=== PATIENT | male | born 1945 | race Caucasian/White ===

== ENCOUNTER 2018-11-18 13:15 | Day surgery (SDC) | payer MEDICARE ==
[2018-11-18 13:54] VITALS: BMI 22.9
[2018-11-18] MEDS ORDERED: diphenhydrAMINE 25 MG CAP PO SCH (14:30)
[2018-11-18] MEDS ORDERED: Acetaminophen 500 MG TAB PO SCH (14:30)
[2018-11-18 23:32] LABS: #Basophils 0.1 thou/uL (0.0-0.2); #Eosinphils 0.3 thou/uL (0.0-0.7); #Lymphocytes 3.2 thou/uL (1.20-3.40); #Monocytes 1.3 thou/uL (0.11-0.59); %Basophils 1.2 % (0.0-1.0); %Eosinophils 3.1 % (0.0-10.0); %Lymphocytes 36.3 % (21.0-51.0); %Monocytes 14.2 % (0.0-10.0); %Neutrophils 45.2 % (42.0-75.0); Hemoglobin 9.8 g/dL (14.0-18.0); Mean Corpuscular HGB CONC 31.6 g/dL (32.0-36.0); Mean Corpuscular Volume 79.1 fL (78.0-98.0); Mean Platelet Volume 7.6 fL (7.4-10.4); Platelet Count 670 thou/uL (130-400); Red Blood Cell (RBC) Count 3.92 mill/uL (4.70-6.10); White Blood Cell (WBC) Count 8.8 thou/uL (4.8-10.8)
[2018-11-19 07:28] VITALS: BP 162/61; TEMP 98.2
== END 2018-11-18 23:35 | disposition home or self-care (01) ==
LOC: ONC/OP 13:15 → T4-A 13:20 → ONC/OP 23:35
PROVIDERS: ATTEND Nurse Practitioner Acute Care
PROC: 30233N1 Transfusion of Nonautologous Red Blood Cells into Peripheral Vein, Percutaneous Approach (ICD-10-PCS; principal; 2018-11-18)
DX: D64.9 Anemia, unspecified (principal); D69.6 Thrombocytopenia, unspecified
CPT/HCPCS: 36415; 36416; 36430; 85025; 86850; 86900; 86901; P9016

== ENCOUNTER 2018-12-23 12:05 | Day surgery (SDC) | payer MEDICARE, OTHER ==
[2018-12-23] MEDS ORDERED: Ferumoxytol (ERSD) 510 MG in Sodium Chloride 0.9% 250 ML 150 ML IV SCH (12:30)
[2018-12-23 13:19] VITALS: BP 168/70; TEMP 97.6
== END 2018-12-23 16:28 | disposition home or self-care (01) ==
LOC: ONC/OP 12:05
PROVIDERS: ATTEND Internal Medicine Hematology & Oncology
DX: D50.8 Other iron deficiency anemias (principal); I12.9 Hypertensive chronic kidney disease with stage 1 through stage 4 chronic kidney disease, or unspecified chronic kidney disease; E11.22 Type 2 diabetes mellitus with diabetic chronic kidney disease; N18.9 Chronic kidney disease, unspecified; D63.1 Anemia in chronic kidney disease; I25.10 Atherosclerotic heart disease of native coronary artery without angina pectoris; E78.00 Pure hypercholesterolemia, unspecified; I25.2 Old myocardial infarction; M19.90 Unspecified osteoarthritis, unspecified site; J44.9 Chronic obstructive pulmonary disease, unspecified; K21.9 Gastro-esophageal reflux disease without esophagitis; F17.200 Nicotine dependence, unspecified, uncomplicated; Z79.02 Long term (current) use of antithrombotics/antiplatelets; Z79.4 Long term (current) use of insulin; Z79.899 Other long term (current) drug therapy
CPT/HCPCS: 36415; 82728; 96365; J7050; Q0139

== ENCOUNTER 2018-12-30 12:36 | Day surgery (SDC) | payer MEDICARE, MEDICAID ==
[2018-12-30] MEDS ORDERED: Ferumoxytol (ERSD) 510 MG in Sodium Chloride 0.9% 250 ML 150 ML IVPB SCH (13:00)
[2018-12-30 13:33] VITALS: BP 155/63; TEMP 97.9
[2018-12-30] MEDS ORDERED: Sodium Chloride 0.9% 20 ML ONE (14:58)
== END 2018-12-30 16:32 | disposition home or self-care (01) ==
LOC: ONC/OP 12:36
PROVIDERS: ATTEND Internal Medicine Hematology & Oncology
DX: D50.8 Other iron deficiency anemias (principal); N18.9 Chronic kidney disease, unspecified; D63.1 Anemia in chronic kidney disease
CPT/HCPCS: 82728; 96365; J7050; Q0139

== ENCOUNTER 2019-01-13 11:43 | Day surgery (SDC) | payer MEDICARE, MEDICAID ==
[~2019-01-13 11:43] MED LIST: Epoetin 40,000 UNITS/ML VIAL SC SCH
[2019-01-13] MEDS ORDERED: Epoetin 40,000 UNITS/ML VIAL ONE (11:52)
== END 2019-01-13 12:20 | disposition home or self-care (01) ==
LOC: ONC/OP 11:43
PROVIDERS: ATTEND Internal Medicine Hematology & Oncology
DX: N18.9 Chronic kidney disease, unspecified (principal); D63.1 Anemia in chronic kidney disease; D50.8 Other iron deficiency anemias
CPT/HCPCS: 96372; J0885

== ENCOUNTER 2019-02-24 11:34 | Day surgery (SDC) | payer MEDICARE, MEDICAID ==
[2019-02-24] MEDS ORDERED: Epoetin 40,000 UNITS/ML VIAL ONE (12:12)
[2019-02-24 12:37] VITALS: BP 160/69; TEMP 98.2
== END 2019-02-24 12:40 | disposition home or self-care (01) ==
LOC: ONC/OP 11:34
PROVIDERS: ATTEND Internal Medicine Hematology & Oncology
DX: N18.9 Chronic kidney disease, unspecified (principal); D63.1 Anemia in chronic kidney disease; D50.8 Other iron deficiency anemias
CPT/HCPCS: 96372; J0885

== ENCOUNTER 2019-03-10 11:21 | Day surgery (SDC) | payer MEDICARE, MEDICAID ==
[2019-03-10] MEDS ORDERED: Epoetin 40,000 UNITS/ML VIAL ONE (11:29)
[2019-03-10 11:32] VITALS: BP 136/63; TEMP 97.9
== END 2019-03-10 11:32 | disposition home or self-care (01) ==
LOC: ONC/OP 11:21
PROVIDERS: ATTEND Internal Medicine Hematology & Oncology
DX: N18.9 Chronic kidney disease, unspecified (principal); D63.1 Anemia in chronic kidney disease; D50.8 Other iron deficiency anemias
CPT/HCPCS: 96372; J0885

== ENCOUNTER 2019-03-24 11:27 | Day surgery (SDC) | payer MEDICARE, MEDICAID ==
[2019-03-24] MEDS ORDERED: Epoetin 40,000 UNITS/ML VIAL ONE (11:44)
[2019-03-24] MEDS ORDERED: EPOETIN ALFA-EPBX (ESRD) 40,000 UNIT/ML VIAL SC SCH (11:45)
[2019-03-24 12:07] VITALS: BP 160/65; TEMP 97.8
== END 2019-03-24 12:08 | disposition home or self-care (01) ==
LOC: ONC/OP 11:27
PROVIDERS: ATTEND Internal Medicine Hematology & Oncology
DX: N18.9 Chronic kidney disease, unspecified (principal); D63.1 Anemia in chronic kidney disease; D50.8 Other iron deficiency anemias
CPT/HCPCS: 96372; J0885

== ENCOUNTER 2019-04-07 11:54 | Day surgery (SDC) | payer MEDICARE, MEDICAID ==
[2019-04-07 12:06] VITALS: BP 131/60; TEMP 97.6
[2019-04-07] MEDS ORDERED: EPOETIN ALFA-EPBX (ESRD) 40,000 UNIT/ML VIAL SC SCH (12:15)
== END 2019-04-07 12:05 | disposition home or self-care (01) ==
LOC: ONC/OP 11:54
PROVIDERS: ATTEND Internal Medicine Hematology & Oncology
DX: D50.8 Other iron deficiency anemias (principal); N18.9 Chronic kidney disease, unspecified; D63.1 Anemia in chronic kidney disease
CPT/HCPCS: 96372

== ENCOUNTER 2019-04-21 12:14 | Day surgery (SDC) | payer MEDICARE, MEDICAID ==
[2019-04-21] MEDS ORDERED: EPOETIN ALFA-EPBX (ESRD) 40,000 UNIT/ML VIAL SC SCH (12:45)
[2019-04-21 13:11] VITALS: BP 136/63; TEMP 97.9
== END 2019-04-21 13:14 | disposition home or self-care (01) ==
LOC: ONC/OP 12:14
PROVIDERS: ATTEND Internal Medicine Hematology & Oncology
DX: N18.9 Chronic kidney disease, unspecified (principal); D63.1 Anemia in chronic kidney disease
CPT/HCPCS: 96372

== ENCOUNTER 2019-05-03 10:55 | Inpatient (IN) | payer MEDICARE, OTHER ==
--- NOTE | 2019-05-03 11:45 | RAD ---
XR Chest 1 View Portable HISTORY: Chest pain COMPARISON: None. FINDINGS: Heart size and mediastinum are within normal limits. The lungs appear clear of infiltrates. Surgical clips are seen within the neck region. IMPRESSION: No active intrathoracic disease.
[2019-05-03 11:53] LABS: #Eosinphils 0.3 thou/uL (0.0-0.7); #Lymphocytes 1.8 thou/uL (1.20-3.40); #Monocytes 1.2 thou/uL (0.11-0.59); #Neutrophils 12.2 thou/uL (1.40-6.50); %Basophils 0.3 % (0.0-1.0); %Eosinophils 2.1 % (0.0-10.0); %Lymphocytes 11.7 % (21.0-51.0); %Monocytes 7.7 % (0.0-10.0); %Neutrophils 78.2 % (42.0-75.0); Hemoglobin 5.8 g/dL (14.0-18.0); Mean Corpuscular HGB CONC 30.3 g/dL (32.0-36.0); Mean Corpuscular Hemoglobin 25.8 pg (27.0-31.0); Mean Corpuscular Volume 85.2 fL (78.0-98.0); Mean Platelet Volume 7.3 fL (7.4-10.4); Platelet Count 697 thou/uL (130-400); RBC Distribution Width 17.7 % (11.5-14.5); Red Blood Cell (RBC) Count 2.24 mill/uL (4.70-6.10); White Blood Cell (WBC) Count 15.5 thou/uL (4.8-10.8)
[2019-05-03 12:14] LABS: ALT (SGPT) 9 U/L (8-55); AST (SGOT) 10 U/L (5-34); Alkaline Phosphatase 271 U/L (40-150); Anion Gap 13 mmol/L (10-20); BUN (Urea Nitrogen) 32 mg/dL (8.4-25.7); Bilirubin, Total Less than 0.2 mg/dL (0.2-1.2); Calc. Creatinine Clearance 0 mL/min (70-130); Calcium 7.9 mg/dL (7.8-10.44); Carbon Dioxide 22 mmol/L (23-31); Chloride 103 mmol/L (98-107); Estimated GFR-MDRD 38; Globulin 2.2 g/dL (2.4-3.5); Glucose 436 mg/dL (83-110); Protein, Total 5.2 g/dL (5.8-8.1); Sodium 133 mmol/L (136-145)
[2019-05-03] MEDS ORDERED: HYDROcodone/Acetaminophen 5/325 mg Tablet PO PRN (14:50)
[2019-05-03] MEDS ORDERED: Loratadine 10 MG TAB PO PRN (14:50)
[2019-05-03] MEDS ORDERED: Calcium Carbonate 500 MG ChewTAB PO PRN (14:50)
[2019-05-03] MEDS ORDERED: Ondansetron PF 4 MG/2 ML Vial IVP PRN (14:50)
[2019-05-03] MEDS ORDERED: Ondansetron ODT 4 MG TAB PO PRN (14:50)
[2019-05-03] MEDS ORDERED: Cepastat Lozenges 1 LOZ PO PRN (14:50)
[2019-05-03] MEDS ORDERED: Sodium Chloride 0.65% Nasal 44 ML BOT EA NARE PRN (14:50)
[2019-05-03] MEDS ORDERED: Zolpidem Tartrate 5 MG TAB PO PRN (14:50)
[2019-05-03] MEDS ORDERED: Senokot S 8.6-50 MG TAB PO PRN (14:50)
[2019-05-03] MEDS ORDERED: Acetaminophen 325 MG TAB PO PRN (14:50)
[2019-05-03] MEDS ORDERED: Bisacodyl 5 MG TAB PO PRN (14:50)
[2019-05-03] MEDS ORDERED: Diabetic Tussin 200 MG/10 ML UDCUP PO PRN (14:50)
[2019-05-03] MEDS ORDERED: Loperamide HCl 2 MG CAP PO PRN (14:50)
[2019-05-03] MEDS ORDERED: Dextrose 50% Abboject 50 ML SYRINGE SLOW IVP PRN (14:50)
[2019-05-03] MEDS ORDERED: HumaLOG 300 UNITS/3 ML VIAL SC PRN (14:50)
[2019-05-03] MEDS ORDERED: Dextrose 5% in Water 1,000 ML IV PRN (14:50)
[2019-05-03] MEDS ORDERED: Artificial Tears 18 DROP/0.9 ML EA EYE PRN (14:50)
[2019-05-03] MEDS ORDERED: Bisacodyl 10 MG SUPP PR PRN (15:00)
--- NOTE | 2019-05-03 15:37 | HP ---
PRIMARY CARE PHYSICIAN: Rudy Beth MD REASON FOR ADMISSION: Severe symptomatic anemia. HISTORY OF PRESENT ILLNESS: A 73-year-old male, who has chronic anemia and he reports that he has history of peptic ulcer disease. He had several colonoscopy as well as upper endoscopy and he was told that he is bleeding from his stomach. This time, he came to emergency room with complaint of chest pain which is substernal, associated with exertion without any radiation. Chest pain subsided with rest and nitroglycerin. He was taking several times nitroglycerin at home for his recurrent chest pain. He also has fatigue, dizziness, shortness of breath on exertion. He also has chronic cough which he attributes from COPD and smoking. With coughing spells, he gets chest pain as well. He denies any pleurisy. He denies any syncope. He denies any lower extremity edema, orthopnea, PND, but he does have dyspnea on exertion. He was feeling lightheaded with exertion as well. The patient denies any currently melena, hematochezia, vomiting, epigastric pain. He denies taking NSAID. He is taking all his home medication at home. He continued to smoke, but for last 2 to 3 days, he quit smoking because smoking was giving him cough and that is why he was hurting in his chest. He denies any fever or chills. He denies any hemoptysis. He denies any abdominal distention or abdominal pain. Today, he came to emergency room and he had a chest x-ray, which was unremarkable. His hemoglobin is 5.8 and WBC count is 15.5. His creatinine is 1.74. Previously, his creatinine was 1.6. REVIEW OF SYSTEMS: CONSTITUTIONAL: Negative for weight loss or gain, ability to conduct usual activities. SKIN: Negative for rash, itching. EYES: Negative for double vision, pain. ENT/MOUTH: Negative for nose bleeding, neck stiffness, pain, tenderness. CARDIOVASCULAR: Negative for palpitations, dyspnea on exertion, orthopnea. RESPIRATORY: Negative for shortness of breath, wheezing, cough, hemoptysis, fever or night sweats. GASTROINTESTINAL: Negative for poor appetite, abdominal pain, heartburn, nausea, vomiting, constipation, or diarrhea. GENITOURINARY: Negative for urgency, frequency, dysuria, nocturia. MUSCULOSKELETAL: Negative for pain, swelling. NEUROLOGIC/PSYCHIATRIC: Negative for anxiety, depression. ALLERGY/IMMUNOLOGIC: Negative for skin rash, bleeding tendency. Please see my HPI for pertinent positives and negatives. All other review of systems reviewed and negative except as mentioned in the HPI. PAST MEDICAL HISTORY: Hypertension, COPD, diabetes type 2, anemia chronic, CKD stage 3, osteoarthritis, tobacco abuse disorder, peptic ulcer disease, gastroesophageal reflux disease, peripheral arterial disease, history of MT, and coronary artery disease. PAST SURGICAL HISTORY: Several EGD and colonoscopy, cardiac catheterization with stent placement, splenectomy, neck surgery. PAST PSYCHIATRIC HISTORY: Reviewed and negative. SOCIAL HISTORY: The patient is smoking about half pack per day. He just quit smoking few days ago. He denies any alcohol abuse. He denies any other illicit drug abuse. He is not and he has significant other. FAMILY HISTORY: No strong family history of premature coronary artery disease, stroke, or cancer. ALLERGIES: NO KNOWN DRUG ALLERGY, BUT THE PATIENT REPORTS THAT HE IS ALLERGIC TO TETANUS TOXOID. CURRENT HOME MEDICATIONS: The patient did not bring his home medication and he is not able to tell me the name of medication, so unable to review at this point. Whenever the patient brings his home medication at that time we will review. EMERGENCY ROOM COURSE: The patient is receiving 1 unit of blood transfusion. He is given DuoNeb therapy IV fluid 1 L given. PHYSICAL EXAMINATION: VITAL SIGNS: Currently, blood pressure 156/57, pulse 80, respiratory rate 18, temperature 98.2, saturation 93% on room air. Weight 71.2 kg. GENERAL: The patient is currently alert, awake, no obvious acute distress. HEENT: Head; normocephalic, atraumatic. Eyes, conjunctivae are pale. No icterus. No nystagmus. Extraocular muscles are intact. ENT; moist mucous membranes. No oral lesion. No pharyngeal erythema. No exudate. NECK: Supple. No JVD. No thyromegaly. No carotid bruit. LUNGS: Bilateral end-expiratory wheezing heard as well as reduced air entry. CARDIAC: S1, S2 regular. Soft systolic murmur noted at the apex. No gallop. No rub. ABDOMEN: Soft. Bowel sounds present. No epigastric tenderness. No peritoneal sign. No guarding. No rigidity. No rebound. BACK: Unremarkable. No CVA tenderness. EXTREMITIES: Upper extremity; passive movement of all joints are normal. Lower extremity, no edema. Good distal pulsation. SKIN: No skin rash. HEMATOLOGIC: No lymphadenopathy. NEUROLOGIC: The patient is alert and oriented x3. Cranial nerves 2 through 12 intact. Motor and sensation within normal limits. No focal neurological deficit. SIGNIFICANT LABORATORY DATA: EKG showing normal sinus rhythm, LVH with repolarization changes. Chest x-ray showing no acute cardiopulmonary process. CBC; WBC 15.5, hemoglobin 5.8, platelets 697. BMP; sodium 133, potassium 5.0, chloride 103, carbon dioxide 22, anion gap 13, BUN 32, creatinine 1.74, glucose 436, calcium 7.9. LFTs; AST 10, ALT 9, alkaline phosphatase 271, albumin 3.0. BNP 245. Troponin I less than 0.010. ASSESSMENT AND PLAN: 1. Severe symptomatic anemia. This patient currently hemoglobin is 5.8, his previous hemoglobin is 9.8. The patient has history of peptic ulcer disease. The patient had several colonoscopy and upper endoscopy. At this point, the patient does not have any ongoing active bleeding by history. We will check stool for guaiac to rule out any occult bleeding. We will consult junior staff accountant for possible evaluation endoscopically. We will send anemia workup with ferritin, iron, TIBC, TSH, B12, folate. We are going to transfuse him 1 unit of blood today and we will repeat H and H later on today. We will also consider giving him another unit of blood tomorrow. 2. Chest pain. The patient's chest pain description is atypical anginal, most likely related with severe symptomatic anemia. Currently, EKG is not showing any ischemic changes and his troponin is negative. We will do three sets of cardiac enzymes. We will obtain echocardiography and we will monitor on telemetry floor. 3. Chronic kidney disease, stage 3. We will monitor renal function. We will repeat BMP tomorrow. I am suspecting chronic kidney disease is related with diabetic nephropathy. We will check urinalysis and we will check urine protein creatinine ratio. 4. Hyponatremia, likely this is pseudohyponatremia from hyperglycemia. 5. Hyperglycemia associated with diabetes type 2. We will provide diabetic diet. We will continue with insulin as per sliding scale protocol. Once we verify his home medication, then we will resume while in hospital. 6. Elevated BNP likely due to hyperdynamic circulation from anemia. We will obtain echocardiography to assess EF and other structural abnormality. 7. Hypoalbuminemia, likely related with nephrotic syndrome and subsequent proteinuria. We will check urinalysis and random protein/creatinine ratio. 8. Chronic obstructive pulmonary disease. We will continue with DuoNeb q.6 hourly, Dulera 2 puffs inhalation b.i.d., Mucinex 600 mg twice daily. 9. Tobacco abuse disorder. Smoking cessation counseling given. Healthy lifestyle measure discussed with the patient. 10. Hypertension. We will continue with the patient's home medication. We will also provide nitroglycerin patch q.8 hourly as the patient is complaining of chest pain. 11. Osteoarthritis. Pain medication as needed basis. 12. History of gastroesophageal reflux disease and peptic ulcer disease. We will continue with Protonix 40 mg IV daily. 13. Leukocytosis with left shift. Unclear whether the patient has infection or not, but the patient has cough productive of sputum. We will check urinalysis and consider giving him levofloxacin 500 mg IV daily. 14. Deep venous thrombosis prophylaxis with SCD. We will avoid Lovenox because of severe anemia. 15. GI prophylaxis. The patient is already on Protonix therapy. CODE STATUS: I have spoken with the patient and the patient's significant other. The patient expressed his own wish to keep himself as a DNR. He does not want to try CPR or intubation in case of cardiopulmonary arrest. DISPOSITION PLAN: Based on clinical course, we are expecting the patient's stay in hospital more than 2 midnights. Plan of care discussed with the patient and family member at bedside in the emergency room. Job ID: [id number]
[2019-05-03 15:38] LABS: Troponin I 0.012 ng/mL (< 0.028)
[2019-05-03 16:14] LABS: Bilirubin Negative (Negative); Blood, Urine Negative (Negative); Clarity CLEAR (Clear); Glucose, Urine (Dipstick) >=1000 mg/dL (Negative); Leukocyte Negative (Negative); Nitrite Negative (Negative); Protein, Urine (Dipstick) 300 mg/dL (Neg-Trace); Specific Gravity, Urine 1.019 (1.002-1.036); Urobilinogen 0.2 mg/dL (0.2-1.0)
[2019-05-03 16:18] LABS: Bacteria/HPF None Seen HPF (None Seen); Hyaline Casts/LPF 0-3 HYALINE CAST LPF (0-3 Hyaline); Pathc Cast-AUWi Flag 0.13 (0-2.49); RBC/HPF 0-3 HPF (0-3); Squamous Epithelial 0-3 HPF (0-3); WBC/HPF 0-3 HPF (0-3)
[2019-05-03 16:34] LABS: Iron 11 ug/dL (65-175); Iron Binding Capacity, Total 359 mcg/dL (261-462)
[2019-05-03 16:42] LABS: Folate (Folic Acid) 8.9 ng/mL (7.0-31.4)
[2019-05-03 16:52] LABS: Ferritin 8.37 ng/mL (22-322); Thyroid Stimulating Hormone 0.9813 uIU/mL (0.35-4.94)
[2019-05-03 17:03] VITALS: BMI 22.8
[2019-05-03 18:16] LABS: Troponin I 0.015 ng/mL (< 0.028)
[2019-05-03] MEDS: HumaLOG 300 UNITS/3 ML VIAL SC PRN (18:33)
[2019-05-03] MEDS: Nitroglycerin 2% Ointment 1 INCH/1 GM Packet TOP SCH (20:58)
[2019-05-03] MEDS: guaiFENesin ER 600 MG TAB PO SCH (20:58)
[2019-05-04] MEDS: Nitroglycerin 2% Ointment 1 INCH/1 GM Packet TOP SCH (05:00)
[2019-05-04 05:51] LABS: #Eosinphils 0.2 thou/uL (0.0-0.7); #Lymphocytes 2.7 thou/uL (1.20-3.40); #Monocytes 1.3 thou/uL (0.11-0.59); #Neutrophils 8.5 thou/uL (1.40-6.50); %Basophils 0.1 % (0.0-1.0); %Eosinophils 1.9 % (0.0-10.0); %Lymphocytes 21.2 % (21.0-51.0); %Monocytes 10.2 % (0.0-10.0); %Neutrophils 66.5 % (42.0-75.0); Hemoglobin 6.6 g/dL (14.0-18.0); Mean Corpuscular HGB CONC 31.8 g/dL (32.0-36.0); Mean Corpuscular Hemoglobin 27.3 pg (27.0-31.0); Mean Platelet Volume 7.2 fL (7.4-10.4); Platelet Count 607 thou/uL (130-400); RBC Distribution Width 17.2 % (11.5-14.5); White Blood Cell (WBC) Count 12.7 thou/uL (4.8-10.8)
[2019-05-04 06:12] LABS: ALT (SGPT) 7 U/L (8-55); AST (SGOT) 9 U/L (5-34); Albumin 2.7 g/dL (3.4-4.8); Alkaline Phosphatase 229 U/L (40-150); Anion Gap 13 mmol/L (10-20); BUN (Urea Nitrogen) 37 mg/dL (8.4-25.7); Bilirubin, Total Less than 0.2 mg/dL (0.2-1.2); Calc. Creatinine Clearance 45 mL/min (70-130); Calcium 8.2 mg/dL (7.8-10.44); Carbon Dioxide 21 mmol/L (23-31); Cardiac Risk 4.1 (Less than 4.5); Chloride 104 mmol/L (98-107); Cholesterol 138 mg/dl (< 200 Desired); Estimated GFR-MDRD 49; Globulin 2.7 g/dL (2.4-3.5); Glucose 162 mg/dL (83-110); HDL Cholesterol 34 mg/dL (>60 Neg Risk); LDL Cholesterol, Calculated 75 mg/dL; Potassium 4.3 mmol/L (3.5-5.1); Protein, Total 5.4 g/dL (5.8-8.1); Sodium 134 mmol/L (136-145); Triglycerides 146 mg/dL (Less than 150)
[2019-05-04] MEDS ORDERED: Iron Sucrose Complex 200 MG in Sodium Chloride 0.9% 250 ML 250 ML IVPB SCH (07:15)
[2019-05-04] MEDS ORDERED: Iron, Sodium Ferric Gluconate 250 MG in Sodium Chloride 0.9% 250 ML 250 ML IVPB SCH (07:30)
[2019-05-04] MEDS ORDERED: [UNRECOGNIZED DRUG - OTHER] SC SCH (09:00)
[2019-05-04] MEDS ORDERED: Non-Formulary Item 1 EACH (Losartan Potassium [Losartan Potassium] 100 MG) PO SCH (09:00)
[2019-05-04] MEDS ORDERED: Furosemide 20 MG TAB PO SCH (09:00)
[2019-05-04] MEDS ORDERED: Non-Formulary Item 1 EACH (Atenolol [Atenolol] 100 MG) PO SCH (09:00)
[2019-05-04] MEDS ORDERED: Non-Formulary Item 1 EACH (Atorvastatin Calcium [Atorvastatin Calcium] 80 MG) PO SCH (09:00)
[2019-05-04] MEDS ORDERED: SOLIQUA SC SCH (09:00)
[2019-05-04] MEDS: guaiFENesin ER 600 MG TAB PO SCH ×2 (09:50→20:51)
[2019-05-04] MEDS: Alogliptin 25 MG TAB PO SCH (09:50)
[2019-05-04] MEDS: Atenolol 50 MG TAB PO SCH (09:50)
[2019-05-04] MEDS: Losartan 25 MG TAB PO SCH (09:50)
[2019-05-04] MEDS: Saccharomyces boulardii 250 MG CAP PO SCH (09:51)
[2019-05-04] MEDS: Pantoprazole 40 MG VIAL IVP SCH (09:52)
--- NOTE | 2019-05-04 11:29 | PDOC.PN ---
- Subjective Encounter Start Date: 05/04/19 Encounter Start Time: 07:30 -: old records requested/rev Patient seen and examined. No new complaints. No overnight events today feels OK, no further chest pain, no gross blood loss - Objective Resuscitation Status - Order Detail: 05/03/19 14:43 Resuscitation Status Routine Resuscitation Status: DNAR: NO Resuscitation Discussed with: discussed with pt MAR Reviewed: Yes Vital Signs & Weight: Vital Signs (12 hours) Temp Pulse Pulse Resp BP BP Pulse Ox 05/04/19 11:07 98.2 F 74 18 174/74 H 05/04/19 09:50 84 05/04/19 08:34 98.4 F 81 18 166/72 H 05/04/19 07:45 98.1 F 84 18 153/65 H 96 05/04/19 07:02 80 16 93 L 05/04/19 04:00 98.2 F 77 17 123/73 94 L 05/04/19 02:00 77 16 92 L 05/03/19 23:33 78 159/68 H 93 L Weight Weight 154 lb 6.4 oz I&O: 05/03/19 05/04/19 05/05/19 06:59 06:59 06:59 Intake Total 50 350 Output Total 100 Balance -50 350 Result Diagrams: 05/04/19 05:30 05/04/19 05:30 Additional Labs: Accuchecks 05/04/19 05/04/19 05/03/19 10:24 05:06 20:18 POC Glucose 220 H 168 H 397 H 05/03/19 18:17 POC Glucose 309 H EKG Reviewed by me: Yes (nsr) Phys Exam - Physical Examination Constitutional: NAD HEENT: PERRLA, moist MMs, sclera anicteric Neck: no JVD, supple Respiratory: no wheezing, no rales, no rhonchi reduced air entry Cardiovascular: RRR, no significant murmur, no rub Gastrointestinal: soft, non-tender, no distention, positive bowel sounds Musculoskeletal: no edema, pulses present Neurological: non-focal, normal sensation, moves all 4 limbs Lymphatic: no nodes Psychiatric: normal affect, A&O x 3 Skin: no rash, normal turgor Dx/Plan (1) Chest pain Code(s): R07.9 - CHEST PAIN, UNSPECIFIED Status: Acute Comment: due to anemia (2) Hyperglycemia due to type 2 diabetes mellitus Code(s): E11.65 - TYPE 2 DIABETES MELLITUS WITH HYPERGLYCEMIA Status: Acute (3) Hyponatremia Code(s): E87.1 - HYPO-OSMOLALITY AND HYPONATREMIA Status: Acute Comment: pseudohyponatremia due to hyperglycemia (4) Symptomatic anemia Code(s): D64.9 - ANEMIA, UNSPECIFIED Status: Acute Comment: s/p total 2 unit PRBC (5) CKD (chronic kidney disease) stage 3, GFR 30-59 ml/min Code(s): N18.3 - CHRONIC KIDNEY DISEASE, STAGE 3 (MODERATE) Status: Chronic (6) COPD (chronic obstructive pulmonary disease) Status: Chronic (7) Iron deficiency anemia due to chronic blood loss Code(s): D50.0 - IRON DEFICIENCY ANEMIA SECONDARY TO BLOOD LOSS (CHRONIC) Status: Chronic (8) Tobacco abuse Code(s): Z72.0 - TOBACCO USE Status: Chronic (9) Elevated brain natriuretic peptide (BNP) level Code(s): R79.89 - OTHER SPECIFIED ABNORMAL FINDINGS OF BLOOD CHEMISTRY Status : Acute - Plan cont current plan of care, continue antibiotics, respiratory therapy * today will transfuse 1 unit PRBC * will give IV iron * GI consulted * continue IV protonix * home medication reconciled * medication reviewed as below * symptomatic treatment. * continue levaquin * Echo pending Review of Systems - Review of Systems Constitutional: negative: fever, chills, sweats, weakness, malaise, other ENT: negative: Ear Pain, Ear Discharge, Nose Pain, Nose Discharge, Nose Congestion, Mouth Pain, Mouth Swelling, Throat Pain, Throat Swelling, Other Respiratory: Cough, Sputum. negative: Dry, Shortness of Breath, Hemoptysis, SOB with Excertion, Pleuritic Pain, Wheezing Cardiovascular: negative: chest pain, palpitations, orthopnea, paroxysmal nocturnal dyspnea, edema, light headedness, other Gastrointestinal: negative: Nausea, Vomiting, Abdominal Pain, Diarrhea, Constipation, Melena, Hematochezia, Other Genitourinary: negative: Dysuria, Frequency, Incontinence, Hematuria, Retention , Other Musculoskeletal: negative: Neck Pain, Shoulder Pain, Arm Pain, Back Pain, Hand Pain, Leg Pain, Foot Pain, Other Skin: negative: Rash, Lesions, Derick, Bruising, Other - Medications/Allergies Allergies/Adverse Reactions: Allergies Allergy/AdvReac Type Severity Reaction Status Date / Time Tetanus Vaccines and Toxoid Allergy Verified 05/03/19 16:42 Medications: Current Medications Acetaminophen (Tylenol) 650 mg PO Q4H PRN PRN Reason: Headache/Fever/Mild Pain (1-3) Hydrocodone Bitart/Acetaminophen ([place] 5/325) 1 tab PO Q4H PRN PRN Reason: Moderate Pain (4-6) Albuterol/Ipratropium (Duoneb) 3 ml NEB [id number] [facility] Last Admin: 05/04/19 07:02 Dose: 3 ml Alogliptin Benzoate (Alogliptin) 25 mg PO DAILY [facility] Last Admin: 05/04/19 09:50 Dose: 25 mg Artificial Tears (Tears Naturale) 2 drop EA EYE PRN PRN PRN Reason: Dry Eyes Atenolol (Tenormin) 100 mg PO DAILY [facility] Last Admin: 05/04/19 09:50 Dose: 100 mg Atorvastatin Calcium (Lipitor) 80 mg PO HS [facility] Bisacodyl (Dulcolax) 10 mg PO DAILYPRN PRN PRN Reason: Constipation Bisacodyl (Dulcolax) 10 mg NM DAILYPRN PRN PRN Reason: Constipation Calcium Carbonate (Tums) 1,000 mg PO Q4H PRN PRN Reason: Heartburn or Indigestion Dextrose/Water (Dextrose 50%) 25 gm SLOW IVP PRN PRN PRN Reason: Hypoglycemia Furosemide (Lasix) 20 mg PO DAILY [facility] Last Admin: 05/04/19 09:51 Dose: 20 mg Glucagon (Glucagon) 1 mg IM PRN PRN PRN Reason: Hypoglycemia Guaifenesin (Mucinex) 600 mg PO Q12HR [facility] Last Admin: 05/04/19 09:50 Dose: 600 mg Guaifenesin (Robitussin Sf) 200 mg PO Q4H PRN PRN Reason: Cough Hydralazine HCl (Apresoline) 10 mg SLOW IVP Q4H PRN PRN Reason: SBP > 180 and HR < 70 Levofloxacin 500 mg/ Device 100 mls @ 100 mls/hr IVPB Q24HR [facility] Last Admin: 05/03/19 18:10 Dose: 100 mls Dextrose/Water (D5w) 1,000 mls @ 0 mls/hr IV .Q0M PRN PRN Reason: Hypoglycemia Ferric Sodium Gluconate Complex 250 mg/ Sodium Chloride 270 mls @ 129.808 mls/ hr IVPB ONE [facility] Stop: 05/04/19 12:00 Last Admin: 05/04/19 11:12 Dose: 270 mls Insulin Human Lispro (Humalog) 0 units SC .AGGRESSIVE SLIDING PRN PRN Reason: Aggressive Correctional Scale Last Admin: 05/03/19 18:33 Dose: 11 unit Insulin Human Lispro (Humalog) 0 units SC .BEDTIME SLIDING SC PRN PRN Reason: Bedtime Correctional Scale Last Admin: 05/03/19 21:32 Dose: 5 units Loperamide HCl (Imodium) 2 mg PO PRN PRN PRN Reason: Diarrhea/Loose Stools Loratadine (Claritin) 10 mg PO DAILYPRN PRN PRN Reason: Sinus Symptoms Losartan Potassium (Cozaar) 100 mg PO DAILY [facility] Last Admin: 05/04/19 09:50 Dose: 100 mg Nitroglycerin (Nitrostat) 0.4 mg SL Q5MIN PRN PRN Reason: Chest Pain Ondansetron HCl (Zofran Odt) 4 mg PO Q6H PRN PRN Reason: Nausea/Vomiting Ondansetron HCl (Zofran) 4 mg IVP Q6H PRN PRN Reason: Nausea/Vomiting Pantoprazole Sodium (Protonix) 40 mg IVP DAILY [facility] Last Admin: 05/04/19 09:52 Dose: 40 mg [[place] 100 Unit-33 (Mcg/Ml Pen) 0 each SC DAILY [facility] Saccharomyces Boulardii (Florastor) 250 mg PO DAILY [facility] Last Admin: 05/04/19 09:51 Dose: 250 mg Senna/Docusate Sodium (Senokot S) 2 tab PO BID PRN PRN Reason: Constipation Sodium Chloride ([place] Nasal [place] 0.65%) 0 ml EA NARE QIDPRN PRN PRN Reason: Nasal Congestion Sodium Chloride (Flush - Normal Saline) 10 ml IVF Q12HR [facility] Last Admin: 05/04/19 09:51 Dose: 10 ml Sodium Chloride (Flush - Normal Saline) 10 ml IVF PRN PRN PRN Reason: Saline Flush Throat Lozenges (Cepastat Lozenges) 1 felicia PO Q2H PRN PRN Reason: Sore Throat Zolpidem Tartrate (Ambien) 5 mg PO HSPRN PRN PRN Reason: Insomnia
[2019-05-04] MEDS: HumaLOG 300 UNITS/3 ML VIAL SC PRN (18:55)
--- NOTE | 2019-05-04 20:13 | CON ---
DATE OF CONSULTATION: 05/04/2019 REASON FOR CONSULTATION: Iron deficiency anemia. HISTORY OF PRESENT ILLNESS: Clinton Venegas is a 73-year-old gentleman, who was admitted to the hospital yesterday with symptoms of severe symptomatic anemia including dyspnea on exertion, fatigue, and also chest pain. He describes no abdominal pain, melena, hematochezia, nausea, vomiting, or food intolerance. Upon presentation, he was found to have significant anemia with hemoglobin 5.8 and iron deficiency with ferritin only 8.37. Notably, this is despite him getting iron and Procrit injections at regular intervals over the past several months at least through the Hematology[facility]Oncology Clinic. The patient states that he has a long history of iron deficiency anemia. He cannot recall how long ago it was, but this was evidently worked up at [facility] [place] several years ago. He was told that he had an unremarkable colonoscopy and that in an EGD showed that he was bleeding from the stomach lining. He is not clear whether this was related to ulcer disease or gastritis or AVMs or anything else, just that it was coming from the stomach lining. He has been on a daily PPI long-term since then. He also does take Plavix evidently. Again, he reports no overt bleeding from anywhere. There is no hematemesis, melena, hematochezia, or gross hematuria. He has remained hemodynamically stable here. He got 1 unit of RBCs and hemoglobin came up from 5.8 to 6.6. He is getting another unit today and also some IV iron. He is tolerating his regular diet. REVIEW OF SYSTEMS: Full review of systems including constitutional, head, eyes, ears, nose, throat, GI, , cardiovascular, respiratory, musculoskeletal, and neurologic systems are negative except as noted in the HPI. PAST MEDICAL HISTORY: Chronic iron deficiency anemia, COPD, chronic kidney disease, diabetes, and ongoing tobacco abuse. ALLERGIES: TETANUS VACCINE. MEDICATIONS: Outpatient medications; 1. Lipitor. 2. Atenolol. 3. Plavix 75 mg daily. 4. Lasix. 5. Insulin. 6. Lopid. 7. Losartan. 8. Januvia. 9. Protonix 40 mg daily. Additional inpatient medications; 1. Protonix 40 mg IV daily. 2. Levaquin IV. SOCIAL HISTORY: Smokes about a half a pack cigarettes per day. No drug or alcohol abuse. FAMILY HISTORY: Noncontributory. PHYSICAL EXAMINATION: VITAL SIGNS: Temperature 98.4, pulse 84, blood pressure 166/72, and 96% oxygen saturation on room air. GENERAL: A 73-year-old man, sitting up in bed comfortably, in no distress. SKIN: He is pale. No jaundice. No rashes were palpable. HEENT: Eyes, no scleral icterus. Extraocular movements intact. ENT, mucous membranes moist. No oral lesions. LYMPH: No submandibular or supraclavicular lymphadenopathy. Thyroid nontender to palpation. HEART: Regular rate and rhythm. LUNGS: Clear to auscultation bilaterally. ABDOMEN: Bowel sounds present. Soft and nontender to palpation throughout. EXTREMITIES: No peripheral edema. VESSELS: Radial pulses 2+ bilaterally. NEURO: Cranial nerves 2 through 12 intact bilaterally. No focal deficits. MENTAL: He is alert and oriented. He can give details about his current symptoms and history, but cannot be too specific with dates. LABORATORY STUDIES: WBC 12.7, hemoglobin 6.6 after 1 unit RBC transfusion, MCV 86, and platelets 607. Sodium 134, potassium 4.3, BUN 37, creatinine 1.40, glucose 162, total bilirubin less than 0.2, alkaline phosphatase 229, AST 9, ALT 7, and albumin 2.7. Troponin negative. TSH 0.98. Vitamin B12 is normal at 712. Folic acid is normal at 8.9, ferritin is low at 8.37, iron low at 11, only 3% iron saturation, and TIBC is 359. Urinalysis negative. IMAGING STUDIES: Chest x-ray showed no acute processes. ASSESSMENT AND PLAN: 1. Acute on chronic anemia, severe, symptomatic. 2. Chronic iron deficiency anemia. 3. Question of prior upper gastrointestinal bleeding seen on prior esophagogastroduodenoscopy elsewhere. The patient has quite striking iron deficiency anemia evidently despite iron and Procrit therapy in the preceding months. This is all in the context of no reported overt bleeding from anywhere, any primary gastrointestinal symptoms. Notably, he had an esophagogastroduodenoscopy at some point in the past and was told that the bleeding was coming from the gastric lining, but I am not sure what the specific pathology was. Consider he might have gastric antral vascular ectasia versus chronic gastritis or peptic ulcer disease. Note, he is already on a proton pump inhibitor. Further investigation is warranted. We will plan for diagnostic esophagogastroduodenoscopy tomorrow. If this was completely negative, then I would recommend bowel preparation for colonoscopy the following day. I discussed this with the patient. He desires to proceed. Thank you for the consultation. Please call anytime with questions or concerns. Job ID: [id number]
[2019-05-04] MEDS: Atorvastatin Calcium 40 MG TAB PO SCH (20:51)
[2019-05-05 06:17] LABS: Anion Gap 14 mmol/L (10-20); BUN (Urea Nitrogen) 39 mg/dL (8.4-25.7); Calc. Creatinine Clearance 41 mL/min (70-130); Calcium 8.1 mg/dL (7.8-10.44); Carbon Dioxide 21 mmol/L (23-31); Chloride 105 mmol/L (98-107); Estimated GFR-MDRD 44; Glucose 154 mg/dL (83-110); Potassium 4.3 mmol/L (3.5-5.1); Sodium 136 mmol/L (136-145)
[2019-05-05] MEDS ORDERED: Iron Sucrose Complex 200 MG in Sodium Chloride 0.9% 250 ML 250 ML IVPB SCH (06:45)
[2019-05-05] MEDS ORDERED: Iron, Sodium Ferric Gluconate 250 MG in Sodium Chloride 0.9% 250 ML 250 ML IVPB SCH (07:15)
[2019-05-05 07:49] LABS: #Eosinphils 0.2 thou/uL (0.0-0.7); #Lymphocytes 2.1 thou/uL (1.20-3.40); #Monocytes 1.3 thou/uL (0.11-0.59); #Neutrophils 8.5 thou/uL (1.40-6.50); %Basophils 0.2 % (0.0-1.0); %Eosinophils 1.5 % (0.0-10.0); %Lymphocytes 17.6 % (21.0-51.0); %Monocytes 10.3 % (0.0-10.0); %Neutrophils 70.4 % (42.0-75.0); Hemoglobin 7.8 g/dL (14.0-18.0); Hypochromia SLIGHT = 6-15 cells (100X) (0-5/hpf); MDiff Complete? YES; Mean Corpuscular HGB CONC 32.8 g/dL (32.0-36.0); Mean Corpuscular Volume 85.4 fL (78.0-98.0); Mean Platelet Volume 7.4 fL (7.4-10.4); Platelet Count 570 thou/uL (130-400); Platelet Morphology Comment Appears Increased; Polychromasia SLIGHT = 2-3 cells (100X) (0-2/hpf); RBC Distribution Width 16.9 % (11.5-14.5); Red Blood Cell (RBC) Count 2.78 mill/uL (4.70-6.10); Target Cells SLIGHT = 2-5 cells (100X) (0-1/hpf); White Blood Cell (WBC) Count 12.1 thou/uL (4.8-10.8)
[2019-05-05] MEDS ORDERED: Insulin Glargine 5 UNITS in Pre-Filled Syringe 1 EACH SC SCH ×2 (09:00→21:00)
[2019-05-05] MEDS: Pantoprazole 40 MG VIAL IVP SCH (09:07)
[2019-05-05] MEDS: guaiFENesin ER 600 MG TAB PO SCH ×2 (09:09→21:33)
[2019-05-05] MEDS: Losartan 25 MG TAB PO SCH (09:09)
[2019-05-05] MEDS: Alogliptin 25 MG TAB PO SCH (09:10)
[2019-05-05] MEDS: Saccharomyces boulardii 250 MG CAP PO SCH (09:10)
[2019-05-05] MEDS: Atenolol 50 MG TAB PO SCH (09:10)
--- NOTE | 2019-05-05 10:54 | PDOC.PN ---
- Subjective Encounter Start Date: 05/05/19 Encounter Start Time: 10:30 -: old records requested/rev Patient seen and examined. No new complaints. No overnight events - Objective Resuscitation Status - Order Detail: 05/03/19 14:43 Resuscitation Status Routine Resuscitation Status: DNAR: NO Resuscitation Discussed with: discussed with pt MAR Reviewed: Yes Vital Signs & Weight: Vital Signs (12 hours) Temp Pulse Resp BP Pulse Ox 05/05/19 09:10 87 05/05/19 07:40 98.4 F 87 12 178/72 H 97 05/05/19 07:08 73 16 91 L 05/05/19 03:30 98.1 F 86 18 159/70 H 92 L 05/05/19 00:46 78 16 91 L 05/04/19 23:10 71 129/63 Weight Weight 154 lb 6.4 oz I&O: 05/04/19 05/05/19 05/06/19 06:59 06:59 06:59 Intake Total 50 400 Output Total 100 Balance -50 400 Result Diagrams: 05/05/19 05:17 05/05/19 05:17 Additional Labs: Accuchecks 05/05/19 05/04/19 05/04/19 05:20 20:53 16:48 POC Glucose 165 H 105 310 H EKG Reviewed by me: Yes Phys Exam - Physical Examination Constitutional: NAD HEENT: PERRLA, moist MMs, sclera anicteric Neck: no JVD, supple Respiratory: no wheezing, no rales, no rhonchi Cardiovascular: RRR, no significant murmur, no rub Gastrointestinal: soft, non-tender, no distention, positive bowel sounds Musculoskeletal: no edema, pulses present Neurological: non-focal, normal sensation Lymphatic: no nodes Psychiatric: normal affect, A&O x 3 Skin: no rash, normal turgor Dx/Plan (1) Chest pain Code(s): R07.9 - CHEST PAIN, UNSPECIFIED Status: Acute Comment: due to anemia (2) Hyperglycemia due to type 2 diabetes mellitus Code(s): E11.65 - TYPE 2 DIABETES MELLITUS WITH HYPERGLYCEMIA Status: Acute (3) Hyponatremia Code(s): E87.1 - HYPO-OSMOLALITY AND HYPONATREMIA Status: Acute Comment: pseudohyponatremia due to hyperglycemia (4) Symptomatic anemia Code(s): D64.9 - ANEMIA, UNSPECIFIED Status: Acute Comment: s/p total 2 unit PRBC (5) CKD (chronic kidney disease) stage 3, GFR 30-59 ml/min Code(s): N18.3 - CHRONIC KIDNEY DISEASE, STAGE 3 (MODERATE) Status: Chronic (6) COPD (chronic obstructive pulmonary disease) Status: Chronic (7) Iron deficiency anemia due to chronic blood loss Code(s): D50.0 - IRON DEFICIENCY ANEMIA SECONDARY TO BLOOD LOSS (CHRONIC) Status: Chronic (8) Tobacco abuse Code(s): Z72.0 - TOBACCO USE Status: Chronic (9) Elevated brain natriuretic peptide (BNP) level Code(s): R79.89 - OTHER SPECIFIED ABNORMAL FINDINGS OF BLOOD CHEMISTRY Status : Acute - Plan cont current plan of care, continue antibiotics, respiratory therapy * today EGD and possible tomorrow colonoscopy * will give IV iron today * medication reviewed as below * symptomatic treatment * repeat labs tomorrow Review of Systems - Review of Systems ENT: negative: Ear Pain, Ear Discharge, Nose Pain, Nose Discharge, Nose Congestion, Mouth Pain, Mouth Swelling, Throat Pain, Throat Swelling, Other Respiratory: negative: Cough, Dry, Shortness of Breath, Hemoptysis, SOB with Excertion, Pleuritic Pain, Sputum, Wheezing Cardiovascular: negative: chest pain, palpitations, orthopnea, paroxysmal nocturnal dyspnea, edema, light headedness, other Gastrointestinal: negative: Nausea, Vomiting, Abdominal Pain, Diarrhea, Constipation, Melena, Hematochezia, Other Genitourinary: negative: Dysuria, Frequency, Incontinence, Hematuria, Retention , Other Musculoskeletal: negative: Neck Pain, Shoulder Pain, Arm Pain, Back Pain, Hand Pain, Leg Pain, Foot Pain, Other - Medications/Allergies Allergies/Adverse Reactions: Allergies Allergy/AdvReac Type Severity Reaction Status Date / Time Tetanus Vaccines and Toxoid Allergy Verified 05/03/19 16:42 Medications: Current Medications Acetaminophen (Tylenol) 650 mg PO Q4H PRN PRN Reason: Headache/Fever/Mild Pain (1-3) Hydrocodone Bitart/Acetaminophen ([place] 5/325) 1 tab PO Q4H PRN PRN Reason: Moderate Pain (4-6) Albuterol/Ipratropium (Duoneb) 3 ml NEB [id number] Last Admin: 05/05/19 07:08 Dose: 3 ml Alogliptin Benzoate (Alogliptin) 25 mg PO DAILY [facility] Last Admin: 05/05/19 09:10 Dose: 25 mg Artificial Tears (Tears Naturale) 2 drop EA EYE PRN PRN PRN Reason: Dry Eyes Atenolol (Tenormin) 100 mg PO DAILY [facility] Last Admin: 05/05/19 09:10 Dose: 100 mg Atorvastatin Calcium (Lipitor) 80 mg PO [facility] Last Admin: 05/04/19 20:51 Dose: 80 mg Bisacodyl (Dulcolax) 10 mg PO DAILYPRN PRN PRN Reason: Constipation Bisacodyl (Dulcolax) 10 mg [place] DAILYPRN PRN PRN Reason: Constipation Calcium Carbonate (Tums) 1,000 mg PO Q4H PRN PRN Reason: Heartburn or Indigestion Dextrose/Water (Dextrose 50%) 25 gm SLOW IVP PRN PRN PRN Reason: Hypoglycemia Glucagon (Glucagon) 1 mg IM PRN PRN PRN Reason: Hypoglycemia Guaifenesin (Mucinex) 600 mg PO Q12HR [facility] Last Admin: 05/05/19 09:09 Dose: 600 mg Guaifenesin (Robitussin Sf) 200 mg PO Q4H PRN PRN Reason: Cough Hydralazine HCl (Apresoline) 10 mg SLOW IVP Q4H PRN PRN Reason: SBP > 180 and HR < 70 Levofloxacin 500 mg/ Device 100 mls @ 100 mls/hr IVPB Q24HR [facility] Last Admin: 05/04/19 16:51 Dose: 100 mls Dextrose/Water (D5w) 1,000 mls @ 0 mls/hr IV .Q0M PRN PRN Reason: Hypoglycemia Insulin Glargine 5 units/ (Miscellaneous Medication) 0.05 mls @ 0 mls/hr SC [facility] Insulin Glargine 5 units/ (Miscellaneous Medication) 0.05 mls @ 0 mls/hr [facility] Last Admin: 05/05/19 09:09 Dose: Not Given Ferric Sodium Gluconate Complex 250 mg/ Sodium Chloride 270 mls @ 129.808 mls/ hr IVPB ONE [facility] Stop: 05/05/19 12:00 Last Admin: 05/05/19 09:07 Dose: 270 mls Insulin Human Lispro (Humalog) 0 units SC .AGGRESSIVE SLIDING PRN PRN Reason: Aggressive Correctional Scale Last Admin: 05/04/19 18:55 Dose: 11 unit Insulin Human Lispro (Humalog) 0 units SC .BEDTIME SLIDING SC PRN PRN Reason: Bedtime Correctional Scale Last Admin: 05/03/19 21:32 Dose: 5 units Loperamide HCl (Imodium) 2 mg PO PRN PRN PRN Reason: Diarrhea/Loose Stools Loratadine (Claritin) 10 mg PO DAILYPRN PRN PRN Reason: Sinus Symptoms Losartan Potassium (Cozaar) 100 mg PO DAILY [facility] Last Admin: 05/05/19 09:09 Dose: 100 mg Nitroglycerin (Nitrostat) 0.4 mg SL Q5MIN PRN PRN Reason: Chest Pain Ondansetron HCl (Zofran Odt) 4 mg PO Q6H PRN PRN Reason: Nausea/Vomiting Ondansetron HCl (Zofran) 4 mg IVP Q6H PRN PRN Reason: Nausea/Vomiting Pantoprazole Sodium (Protonix) 40 mg IVP DAILY [facility] Last Admin: 05/05/19 09:07 Dose: 40 mg Saccharomyces Boulardii (Florastor) 250 mg PO DAILY [facility] Last Admin: 05/05/19 09:10 Dose: 250 mg Senna/Docusate Sodium (Senokot S) 2 tab PO BID PRN PRN Reason: Constipation Sodium Chloride ([place] Nasal [place] 0.65%) 0 ml EA NARE QIDPRN PRN PRN Reason: Nasal Congestion Sodium Chloride (Flush - Normal Saline) 10 ml IVF Q12HR [facility] Last Admin: 05/05/19 09:11 Dose: 10 ml Sodium Chloride (Flush - Normal Saline) 10 ml IVF PRN PRN PRN Reason: Saline Flush Throat Lozenges (Cepastat Lozenges) 1 felicia PO Q2H PRN PRN Reason: Sore Throat Zolpidem Tartrate (Ambien) 5 mg PO HSPRN PRN PRN Reason: Insomnia
[2019-05-05] MEDS: hydrALAZINE 20 MG/ML VIAL SLOW IVP PRN ×2 (11:19→16:48)
--- NOTE | 2019-05-05 14:30 | PRG ---
DATE OF SERVICE: 05/05/2019 SUBJECTIVE: Mr. Venegas is feeling okay. Fatigue and dyspnea are bit improved after another unit of RBC transfusion. Hemoglobin is up to 7.8. There has been no overt bleeding. He has remained hemodynamically stable. We had planned for EGD today, but anesthesiology staff has some concerns and requests formal cardiac clearance prior to proceeding. OBJECTIVE: VITAL SIGNS: Pulse 77, blood pressure 152/67, 94% oxygen saturation on room air, and temperature 98.2. GENERAL: No acute distress. HEART: Regular rate and rhythm. LUNGS: Clear to auscultation bilaterally. ABDOMEN: Soft and nontender to palpation. EXTREMITIES: No peripheral edema. LABORATORY STUDIES: After 2 units RBCs, hemoglobin is up to 7.8, WBC is 12.1, platelets 570. Sodium 136, potassium 4.3, BUN 39, creatinine 1.54, and glucose 193. ASSESSMENT AND PLAN: 1. Chronic iron-deficiency anemia, severe, persistent despite iron supplementation. 2. Question of prior upper gastrointestinal bleeding seen on prior esophagogastroduodenoscopy elsewhere. 3. Coronary artery disease. Per Anesthesia staff concerns, we are going to need to delay the EGD for today, and we will request a formal cardiac clearance for endoscopy procedure. I agree with this plan. We will tentatively plan to have esophagogastroduodenoscopy performed tomorrow following cardiac clearance. Dr. Lawson is covering for GI for the weekend. We will give the patient a regular diet tonight and have him n.p.o. after midnight. Job ID: [id number]
[2019-05-05] MEDS: HumaLOG 300 UNITS/3 ML VIAL SC PRN (17:19)
[2019-05-05] MEDS: Nitroglycerin 0.4 MG TAB (25 Tab Bottle) SL PRN ×2 (20:14→20:21)
[2019-05-05] MEDS: Atorvastatin Calcium 40 MG TAB PO SCH (21:33)
--- NOTE | 2019-05-06 00:55 | CON ---
DATE OF CONSULTATION: 05/05/2019 INDICATIONS FOR CONSULTATION: This is a 73-year-old gentleman with history of known coronary artery disease, status post angioplasty and stent placement, status post myocardial infarction, who has severe anemia and chest pain, was advised to undergo endoscopy. We were asked by the anesthesiologist to risk stratify the patient prior to undergoing the procedure. He is a very pleasant 73-year-old gentleman who has undergone multiple coronary stents in the past. He lives in [place], [place], has been seen in [place], but now that hospital is closed. 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 He also apparently had stent placed in the lower extremities. He continues to smoke and he said he stopped a week ago, but smoked over 60 years a pack a day, sometimes more. His last stent was placed about a year ago at which time he also was noted to have anemia. He underwent an endoscopy in the past and has had apparently significant gastritis. He again presented at this time having chest pain, but hemoglobin was 5.8. He has been given 2 units of blood and now the hemoglobin is 7.8. His chest pain is resolved. He apparently is a vasculopath. He also had bilateral carotid endarterectomies performed as well as the stent placements. He has had 3 coronary stents he says and 2 in the lower extremities. At this time, he is pain free after being given the 2 units of blood and has no further significant shortness of breath. He has been unable to walk very far also due to shortness of breath, but now is improving after the blood. He said he has been having this problem for the last couple of years and he has had blood transfusions in the past. PAST MEDICAL HISTORY: Significant for anemia, peripheral vascular disease, peptic ulcer disease, stent placement as noted above and bilateral carotid endarterectomies. SOCIAL HISTORY: He is single, he has no children. He did have 1 child who at young age. He smoked until just a week ago he says. He has smoked a significant amount for 60 years at least a pack a day. FAMILY HISTORY: Noncontributory. No alcohol use. MEDICATIONS: Prior to admission include Januvia, Protonix, nitroglycerin, losartan, insulin, gemfibrozil, Lasix, Plavix, which is actually listed as being 75 mg twice a day, atorvastatin, and atenolol. ALLERGIES: ALLERGIC TO TETANUS. REVIEW OF SYSTEMS: He complains of shortness of breath, abdominal pain. He has some chest discomfort when he was significantly anemic. Otherwise, 12-point review of systems is unremarkable. PHYSICAL EXAMINATION: GENERAL: Reveals an elderly gentleman. VITAL SIGNS: Blood pressure 156/64, heart rate is 80, respiratory rate is 18. He is afebrile. HEENT: Shows the head to be normocephalic and atraumatic. He has well-healed surgical incision over both carotid areas. He has bilateral carotid bruits, decreased carotid pulses are noted. CHEST: Clear to auscultation without rales, rhonchi, or wheezing. CARDIOVASCULAR: Reveals a regular rate and rhythm at this time. He has an S1 and S2. There were no gross murmurs noted. He has a very soft systolic murmur at the apex. ABDOMEN: Has some tenderness. He is tympanic. Bowel sounds are present. EXTREMITIES: Showed no clubbing or cyanosis. The femoral pulses are present with bilateral femoral bruits. I cannot palpate popliteal or pedal pulses. NEUROLOGICAL: He appears to be intact. DIAGNOSTIC STUDIES: EKG shows a normal sinus rhythm with evidence of left ventricular hypertrophy as well as associated EKG changes due to the left ventricular hypertrophy with T-wave inversions. LABORATORY DATA: Shows hemoglobin is now at 7.8 after being given 2 units of blood, hematocrit is 23, WBC is 12.1, platelet count 570,000. BUN is 39 with a creatinine of 1.54. Blood sugar is 154 ranging 105 to 310 and potassium is 4.3. IMPRESSION: 1. Severe anemia, most likely due to his significant gastritis. He needs to undergo an endoscopy. However, he does have significant coronary artery disease. He did have chest discomfort, but there were no significant EKG changes. His pain has now resolved since he has been given 2 units of blood. He does have significant peripheral vascular disease and most likely has significant coronary artery disease, which will need to be investigated further after he has undergone endoscopy. He is not a candidate at this time to undergo any further cardiac evaluations. We will proceed with caution in this gentleman. He certainly is at risk for undergoing any type of procedure, but best to determine whether or not any cauterization is needed from a gastric standpoint to see if we can resolve some of his severe anemia as this seems to be the worse problem causing further ischemia when he has severe anemia. We will even consider transfusing another 2 units of blood since his hemoglobin is only 7.8 since he does have peripheral vascular disease and coronary artery disease. 2. History of tobacco abuse, he absolutely must stop smoking. 3. History of peptic ulcer disease, which he says he has had problem for several years, has been treated by medical management in the past. 4. History of known coronary artery disease with stent placement. He will need to undergo further evaluations once he is stable from a GI standpoint. 5. Peripheral vascular disease. This also will need to be evaluated as well as he will need to have evaluation of his carotids once he is more stable from a GI standpoint. At this time, I would proceed with caution with his upper endoscopy to see whether or not any therapy could be initiated as far as helping to stop some of his bleeding. As far as his medications are concerned, according to the records, he is taking Plavix 75 mg twice a day and I would decrease this to at least once a day and actually could hold this at this time. I am uncertain as to what kind of stents he has had, but at least it appears this has been at least about a year ago since he had his last stent, but I suspect he has severe 3-vessel coronary artery disease given his long history of tobacco abuse as well as hypertension. Job ID: [id number]
[2019-05-06 05:39] LABS: #Eosinphils 0.3 thou/uL (0.0-0.7); #Lymphocytes 2.2 thou/uL (1.20-3.40); #Monocytes 1.3 thou/uL (0.11-0.59); #Neutrophils 7.1 thou/uL (1.40-6.50); %Basophils 0.3 % (0.0-1.0); %Eosinophils 2.5 % (0.0-10.0); %Lymphocytes 20.1 % (21.0-51.0); %Neutrophils 65.1 % (42.0-75.0); Hemoglobin 7.4 g/dL (14.0-18.0); Mean Corpuscular HGB CONC 32.4 g/dL (32.0-36.0); Mean Corpuscular Hemoglobin 27.6 pg (27.0-31.0); Mean Platelet Volume 7.5 fL (7.4-10.4); Platelet Count 551 thou/uL (130-400); RBC Distribution Width 17.5 % (11.5-14.5); Red Blood Cell (RBC) Count 2.67 mill/uL (4.70-6.10); White Blood Cell (WBC) Count 10.9 thou/uL (4.8-10.8)
[2019-05-06 05:49] LABS: Anion Gap 12 mmol/L (10-20); BUN (Urea Nitrogen) 43 mg/dL (8.4-25.7); Calc. Creatinine Clearance 41 mL/min (70-130); Calcium 7.9 mg/dL (7.8-10.44); Carbon Dioxide 19 mmol/L (23-31); Chloride 107 mmol/L (98-107); Estimated GFR-MDRD 44; Glucose 225 mg/dL (83-110); Potassium 4.3 mmol/L (3.5-5.1); Sodium 134 mmol/L (136-145)
[2019-05-06] MEDS ORDERED: Iron Sucrose Complex 200 MG in Sodium Chloride 0.9% 250 ML 250 ML IVPB SCH (07:30)
[2019-05-06] MEDS: Atenolol 50 MG TAB PO SCH (08:07)
[2019-05-06] MEDS: guaiFENesin ER 600 MG TAB PO SCH ×2 (08:08→21:52)
[2019-05-06] MEDS: Losartan 25 MG TAB PO SCH (08:10)
[2019-05-06] MEDS: Pantoprazole 40 MG VIAL IVP SCH (08:11)
[2019-05-06] MEDS: Saccharomyces boulardii 250 MG CAP PO SCH (08:11)
[2019-05-06] MEDS ORDERED: Iron, Sodium Ferric Gluconate 250 MG in Sodium Chloride 0.9% 100 ML IVPB SCH (08:15)
--- NOTE | 2019-05-06 10:48 | PDOC.PN ---
- Subjective Encounter Start Date: 05/06/19 Encounter Start Time: 07:15 yesterday EGD was not done as he was c/o recurrent chest pain and so needed cardiac clearance, he gets chest pain after eating, - Objective Resuscitation Status - Order Detail: 05/03/19 14:43 Resuscitation Status Routine Resuscitation Status: DNAR: NO Resuscitation Discussed with: discussed with pt CHARLA Reviewed: Yes Vital Signs & Weight: Vital Signs (12 hours) Temp Pulse Resp BP Pulse Ox 05/06/19 09:00 177/75 H 05/06/19 08:07 72 05/06/19 07:55 190/75 H 05/06/19 07:20 72 16 93 L 05/06/19 07:15 97.8 F 74 18 188/84 H 97 05/06/19 03:40 99.1 F 71 18 162/71 H 92 L 05/06/19 00:01 82 18 91 L Weight Weight 154 lb 6.4 oz I&O: 05/05/19 05/06/19 05/07/19 06:59 06:59 06:59 Intake Total 400 50 Output Total 200 Balance 400 -150 Result Diagrams: 05/06/19 04:29 05/06/19 04:29 Additional Labs: Accuchecks 05/06/19 05/05/19 05/05/19 05:33 20:00 16:58 POC Glucose 218 H 378 H 192 H 05/05/19 10:44 POC Glucose 193 H EKG Reviewed by me: Yes (nsr) Phys Exam - Physical Examination Constitutional: NAD HEENT: PERRLA, moist MMs, sclera anicteric Neck: no JVD, supple Respiratory: no wheezing, no rales, no rhonchi Cardiovascular: RRR, no significant murmur, no rub Gastrointestinal: soft, non-tender, no distention, positive bowel sounds Musculoskeletal: no edema, pulses present Neurological: non-focal, normal sensation, moves all 4 limbs Lymphatic: no nodes Psychiatric: normal affect, A&O x 3 Skin: no rash, normal turgor Dx/Plan (1) Chest pain Code(s): R07.9 - CHEST PAIN, UNSPECIFIED Status: Acute Comment: due to anemia vs angina (2) Hyperglycemia due to type 2 diabetes mellitus Code(s): E11.65 - TYPE 2 DIABETES MELLITUS WITH HYPERGLYCEMIA Status: Acute (3) Hyponatremia Code(s): E87.1 - HYPO-OSMOLALITY AND HYPONATREMIA Status: Acute Comment: pseudohyponatremia due to hyperglycemia (4) Symptomatic anemia Code(s): D64.9 - ANEMIA, UNSPECIFIED Status: Acute Comment: s/p total 2 unit PRBC (5) CKD (chronic kidney disease) stage 3, GFR 30-59 ml/min Code(s): N18.3 - CHRONIC KIDNEY DISEASE, STAGE 3 (MODERATE) Status: Chronic (6) COPD (chronic obstructive pulmonary disease) Status: Chronic (7) Iron deficiency anemia due to chronic blood loss Code(s): D50.0 - IRON DEFICIENCY ANEMIA SECONDARY TO BLOOD LOSS (CHRONIC) Status: Chronic (8) Tobacco abuse Code(s): Z72.0 - TOBACCO USE Status: Chronic (9) Elevated brain natriuretic peptide (BNP) level Code(s): R79.89 - OTHER SPECIFIED ABNORMAL FINDINGS OF BLOOD CHEMISTRY Status : Acute - Plan cont current plan of care, continue antibiotics, respiratory therapy * cardiology consulted for recurrent chest pain and cardiac clearance for EGD * possible EGD today and then colonoscopy if needed * will give one dose of IV Iron * repeat labs and monitor Hb * medication reviewed as below * symptomatic treatment. Review of Systems - Review of Systems ENT: negative: Ear Pain, Ear Discharge, Nose Pain, Nose Discharge, Nose Congestion, Mouth Pain, Mouth Swelling, Throat Pain, Throat Swelling, Other Respiratory: Cough, Sputum. negative: Dry, Shortness of Breath, Hemoptysis, SOB with Excertion, Pleuritic Pain, Wheezing Cardiovascular: chest pain. negative: palpitations, orthopnea, paroxysmal nocturnal dyspnea, edema, light headedness, other Gastrointestinal: negative: Nausea, Vomiting, Abdominal Pain, Diarrhea, Constipation, Melena, Hematochezia, Other Genitourinary: negative: Dysuria, Frequency, Incontinence, Hematuria, Retention , Other Musculoskeletal: negative: Neck Pain, Shoulder Pain, Arm Pain, Back Pain, Hand Pain, Leg Pain, Foot Pain, Other Skin: negative: Rash, Lesions, Derick, Bruising, Other - Medications/Allergies Allergies/Adverse Reactions: Allergies Allergy/AdvReac Type Severity Reaction Status Date / Time Tetanus Vaccines and Toxoid Allergy Verified 05/03/19 16:42 Medications: Current Medications Acetaminophen (Tylenol) 650 mg PO Q4H PRN PRN Reason: Headache/Fever/Mild Pain (1-3) Hydrocodone Bitart/Acetaminophen ([place] 5/325) 1 tab PO Q4H PRN PRN Reason: Moderate Pain (4-6) Albuterol/Ipratropium (Duoneb) 3 ml NEB [id number] [facility] Last Admin: 05/06/19 07:20 Dose: 3 ml Alogliptin Benzoate (Alogliptin) 25 mg PO DAILY [facility] Last Admin: 05/05/19 09:10 Dose: 25 mg Artificial Tears (Tears Naturale) 2 drop EA EYE PRN PRN PRN Reason: Dry Eyes Atenolol (Tenormin) 100 mg PO DAILY [facility] Last Admin: 05/06/19 08:07 Dose: 100 mg Atorvastatin Calcium (Lipitor) 80 mg PO HS [facility] Last Admin: 05/05/19 21:33 Dose: 80 mg Bisacodyl (Dulcolax) 10 mg PO DAILYPRN PRN PRN Reason: Constipation Bisacodyl (Dulcolax) 10 mg [place] DAILYPRN PRN PRN Reason: Constipation Calcium Carbonate (Tums) 1,000 mg PO Q4H PRN PRN Reason: Heartburn or Indigestion Dextrose/Water (Dextrose 50%) 25 gm SLOW IVP PRN PRN PRN Reason: Hypoglycemia Glucagon (Glucagon) 1 mg IM PRN PRN PRN Reason: Hypoglycemia Guaifenesin (Mucinex) 600 mg PO Q12HR [facility] Last Admin: 05/06/19 08:08 Dose: 600 mg Guaifenesin (Robitussin Sf) 200 mg PO Q4H PRN PRN Reason: Cough Hydralazine HCl (Apresoline) 10 mg SLOW IVP Q4H PRN PRN Reason: SBP > 180 and HR < 70 Last Admin: 05/05/19 16:48 Dose: 10 mg Levofloxacin 500 mg/ Device 100 mls @ 100 mls/hr IVPB Q24HR [facility] Last Admin: 05/05/19 16:47 Dose: 100 mls Dextrose/Water (D5w) 1,000 mls @ 0 mls/hr IV .Q0M PRN PRN Reason: Hypoglycemia Insulin Glargine 8 units/ (Miscellaneous Medication) 0.08 mls @ 0 mls/hr SC [facility] Insulin Glargine 8 units/ (Miscellaneous Medication) 0.08 mls @ 0 mls/hr SC QAM [facility] Insulin Human Lispro (Humalog) 0 units SC .AGGRESSIVE SLIDING PRN PRN Reason: Aggressive Correctional Scale Last Admin: 05/05/19 17:19 Dose: 3 unit Insulin Human Lispro (Humalog) 0 units SC .BEDTIME SLIDING SC PRN PRN Reason: Bedtime Correctional Scale Last Admin: 05/03/19 21:32 Dose: 5 units Loperamide HCl (Imodium) 2 mg PO PRN PRN PRN Reason: Diarrhea/Loose Stools Loratadine (Claritin) 10 mg PO DAILYPRN PRN PRN Reason: Sinus Symptoms Losartan Potassium (Cozaar) 100 mg PO DAILY [facility] Last Admin: 05/06/19 08:10 Dose: 100 mg Nitroglycerin (Nitrostat) 0.4 mg SL Q5MIN PRN PRN Reason: Chest Pain Last Admin: 05/05/19 20:21 Dose: 1 tab Ondansetron HCl (Zofran Odt) 4 mg PO Q6H PRN PRN Reason: Nausea/Vomiting Ondansetron HCl (Zofran) 4 mg IVP Q6H PRN PRN Reason: Nausea/Vomiting Pantoprazole Sodium (Protonix) 40 mg IVP DAILY [facility] Last Admin: 05/06/19 08:11 Dose: 40 mg Saccharomyces Boulardii (Florastor) 250 mg PO DAILY [facility] Last Admin: 05/06/19 08:11 Dose: 250 mg Senna/Docusate Sodium (Senokot S) 2 tab PO BID PRN PRN Reason: Constipation Sodium Chloride ([place] Nasal [place] 0.65%) 0 ml EA NARE QIDPRN PRN PRN Reason: Nasal Congestion Sodium Chloride (Flush - Normal Saline) 10 ml IVF Q12HR [facility] Last Admin: 05/06/19 08:26 Dose: 10 ml Sodium Chloride (Flush - Normal Saline) 10 ml IVF PRN PRN PRN Reason: Saline Flush Throat Lozenges (Cepastat Lozenges) 1 felicia PO Q2H PRN PRN Reason: Sore Throat Zolpidem Tartrate (Ambien) 5 mg PO HSPRN PRN PRN Reason: Insomnia
[2019-05-06] MEDS: Insulin Glargine 8 UNITS in Pre-Filled Syringe SC SCH ×2 (12:19→21:52)
[2019-05-06] MEDS: Alogliptin 25 MG TAB PO SCH (12:19)
--- NOTE | 2019-05-06 15:13 | EKG ---
Test Reason : Blood Pressure : / mmHG Vent. Rate : 082 BPM Atrial Rate : 082 BPM P-R Int : 162 ms QRS Dur : 112 ms QT Int : 380 ms P-R-T Axes : 020 -31 110 degrees QTc Int : 443 ms Normal sinus rhythm Left axis deviation Left ventricular hypertrophy with repolarization abnormality Cannot rule out Septal infarct , age undetermined Abnormal ECG Confirmed by FREDDIE DORSEY ([id number]), film editor NENITA HIDALGO ([id number]) on 05/06/2019 3:12:57 PM Referred By: Confirmed By:FREDDIE DORSEY
--- NOTE | 2019-05-06 17:45 | PDOC.CTH ---
Cardiology Progress Note - Subjective The pt seen and examined. No overnight events. No cardiac complaints. He just finished Iron infusion and plan to have 2 units of PRBCs Tx today. - Objective Vital Signs Temp Pulse Resp BP BP Pulse Ox 05/06/19 16:37 98.4 F 69 20 168/73 H 95 05/06/19 12:45 67 18 90 L 05/06/19 12:00 98.2 F 69 20 173/87 H 95 05/06/19 09:00 177/75 H 05/06/19 08:07 72 05/06/19 07:55 190/75 H 05/06/19 07:20 72 16 93 L 05/06/19 07:15 97.8 F 74 18 188/84 H 97 Weight 154 lb 6.4 oz 05/05/19 05/06/19 05/07/19 06:59 06:59 06:59 Intake Total 400 50 Output Total 200 Balance 400 -150 - Physical Examination General/Neuro: alert & oriented x3 Neck: no JVD present Lungs: other: (very diminished at bases) Heart: RRR Abdomen: soft Extremities: other: (No edema) - Telemetry Telemetry Rhythm: SR - Labs Result Diagrams: 05/06/19 04:29 05/06/19 04:29 Troponin/CKMB Troponin I 0.019 ng/mL (< 0.028) 05/06/19 04:29 - Assessment/Plan 1. Chest pain - resolved after 2 units of PRBCs tx; 2. Severe Anemia - The pt was already cleared by Dr Garcia for GI study. This AM , the pt stated he would like to have GI study. 3. CAD with hx of multiple LHC with total 3 stent placement - Plavix is on hold due to severe Anemia until GI study is done. 4. PVD with hx of total 2 stent to BLE in past - Plavix is on hold due to severe Anemia until GI study is done. 5. Peptic ulcer disease with gastritis - EGD has been held for cardiac clearance. 6. COPD - stable with RA 7. Ex-smoker with 1 pk/day and quit in 04/2019 - smoking cessation education given to the pt. MAR reviewed Pt. seen and eval. by me. I agree with the A/P by the DIGITAL MARKETING PROGRAM MANAGER. Records from [place] pending. He has know CAD but is stable at present. Proceed with EGD. [email or web address] Review of Systems - Review of Systems Constitutional: reports: no symptoms reported EENTM: reports: no symptoms reported Respiratory: reports: no symptoms reported Cardiac (ROS): reports: no symptoms reported ABD/GI: reports: no symptoms reported
[2019-05-06] MEDS: HumaLOG 300 UNITS/3 ML VIAL SC PRN (18:52)
[2019-05-06] MEDS: Atorvastatin Calcium 40 MG TAB PO SCH (21:52)
[2019-05-07] MEDS: hydrALAZINE 20 MG/ML VIAL SLOW IVP PRN (07:15)
[2019-05-07] MEDS: Pantoprazole 40 MG VIAL IVP SCH (07:22)
[2019-05-07] MEDS ORDERED: Ketamine 50 MG/ML (10ML VIAL) ONE (08:06)
[2019-05-07] MEDS ORDERED: Promethazine HCl 25 MG/ML VIAL SLOW IVP PRN (08:50)
[2019-05-07] MEDS ORDERED: Ondansetron HCl/PF 4 MG/2 ML Vial IVP PRN (08:50)
[2019-05-07] MEDS ORDERED: Promethazine HCl 25 MG/ML VIAL IM PRN (08:50)
[2019-05-07] MEDS: Saccharomyces boulardii 250 MG CAP PO SCH (09:43)
[2019-05-07] MEDS: Atenolol 50 MG TAB PO SCH (09:43)
[2019-05-07] MEDS: Alogliptin 25 MG TAB PO SCH (09:44)
[2019-05-07 09:45] LABS: Anisocytosis SLIGHT = 6-15 cells (100X) (0-5/hpf); Hemoglobin 8.1 g/dL (14.0-18.0); Hypochromia SLIGHT = 6-15 cells (100X) (0-5/hpf); Lymphocytes 21 % (21-51); MDiff Complete? YES; Mean Corpuscular HGB CONC 30.9 g/dL (32.0-36.0); Mean Corpuscular Hemoglobin 27.1 pg (27.0-31.0); Mean Corpuscular Volume 87.7 fL (78.0-98.0); Mean Platelet Volume 6.9 fL (7.4-10.4); Monocytes 1 % (0-10); Neutrophil 78 % (42-75); Platelet Count 595 thou/uL (130-400); Poikilocytosis SLIGHT = 6-15 cells (100X) (0-5/hpf); RBC Distribution Width 18.2 % (11.5-14.5); Red Blood Cell (RBC) Count 2.98 mill/uL (4.70-6.10); Target Cells SLIGHT = 2-5 cells (100X) (0-1/hpf); White Blood Cell (WBC) Count 12.7 thou/uL (4.8-10.8)
[2019-05-07] MEDS: Insulin Glargine 8 UNITS in Pre-Filled Syringe SC SCH ×2 (09:45→21:00)
[2019-05-07] MEDS: Losartan 25 MG TAB PO SCH (09:45)
[2019-05-07] MEDS: guaiFENesin ER 600 MG TAB PO SCH ×2 (09:48→20:09)
[2019-05-07] MEDS: HumaLOG 300 UNITS/3 ML VIAL SC PRN ×2 (10:59→17:57)
--- NOTE | 2019-05-07 11:58 | PDOC.PN ---
- Subjective Encounter Start Date: 05/07/19 Encounter Start Time: 07:30 Patient seen and examined. No new complaints. No overnight events - Objective Resuscitation Status - Order Detail: 05/03/19 14:43 Resuscitation Status Routine Resuscitation Status: DNAR: NO Resuscitation Discussed with: discussed with pt MAR Reviewed: Yes Vital Signs & Weight: Vital Signs (12 hours) Temp Pulse Resp BP BP BP Pulse Ox 05/07/19 09:43 80 177/74 H 05/07/19 09:40 97.7 F 80 22 H 177/74 H 98 05/07/19 07:32 148/58 H 05/07/19 07:15 98.5 F 80 17 196/68 H 196/68 H 98 05/07/19 06:59 78 16 93 L 05/07/19 04:00 98.1 F 75 18 143/64 H 93 L 05/07/19 00:00 72 12 Weight Weight 154 lb 6.4 oz I&O: 05/06/19 05/07/19 05/08/19 06:59 06:59 06:59 Intake Total 50 240 Output Total 200 400 Balance -150 -160 Result Diagrams: 05/07/19 09:15 05/06/19 04:29 Additional Labs: Accuchecks 05/07/19 05/07/19 05/06/19 10:40 05:37 20:50 POC Glucose 295 H 180 H 181 H 05/06/19 05/06/19 16:45 10:54 POC Glucose 280 H 243 H EKG Reviewed by me: Yes Phys Exam - Physical Examination Constitutional: NAD HEENT: PERRLA, moist MMs, sclera anicteric Neck: no JVD, supple Respiratory: no wheezing, no rales, no rhonchi Cardiovascular: RRR, no significant murmur, no rub Gastrointestinal: soft, non-tender, no distention, positive bowel sounds Musculoskeletal: no edema, pulses present Neurological: non-focal, normal sensation, moves all 4 limbs Lymphatic: no nodes Psychiatric: normal affect, A&O x 3 Skin: no rash, normal turgor Dx/Plan (1) Chest pain Code(s): R07.9 - CHEST PAIN, UNSPECIFIED Status: Acute Comment: due to anemia vs angina (2) Hyperglycemia due to type 2 diabetes mellitus Code(s): E11.65 - TYPE 2 DIABETES MELLITUS WITH HYPERGLYCEMIA Status: Acute (3) Hyponatremia Code(s): E87.1 - HYPO-OSMOLALITY AND HYPONATREMIA Status: Acute Comment: pseudohyponatremia due to hyperglycemia (4) Symptomatic anemia Code(s): D64.9 - ANEMIA, UNSPECIFIED Status: Acute Comment: s/p total 2 unit PRBC (5) CKD (chronic kidney disease) stage 3, GFR 30-59 ml/min Code(s): N18.3 - CHRONIC KIDNEY DISEASE, STAGE 3 (MODERATE) Status: Chronic (6) COPD (chronic obstructive pulmonary disease) Status: Chronic (7) Iron deficiency anemia due to chronic blood loss Code(s): D50.0 - IRON DEFICIENCY ANEMIA SECONDARY TO BLOOD LOSS (CHRONIC) Status: Chronic (8) Tobacco abuse Code(s): Z72.0 - TOBACCO USE Status: Chronic (9) Elevated brain natriuretic peptide (BNP) level Code(s): R79.89 - OTHER SPECIFIED ABNORMAL FINDINGS OF BLOOD CHEMISTRY Status : Acute (10) GI bleed Code(s): K92.2 - GASTROINTESTINAL HEMORRHAGE, UNSPECIFIED Status: Acute Comment: due to AVM - Plan cont current plan of care, plan discussed w/ family, continue antibiotics, respiratory therapy * continue protonix * medication reviewed as below * symptomatic treatment * will monitor today and expecting discharge if no further plan for procedure. * will give one more dose of venofer Review of Systems - Review of Systems ENT: negative: Ear Pain, Ear Discharge, Nose Pain, Nose Discharge, Nose Congestion, Mouth Pain, Mouth Swelling, Throat Pain, Throat Swelling, Other Respiratory: negative: Cough, Dry, Shortness of Breath, Hemoptysis, SOB with Excertion, Pleuritic Pain, Sputum, Wheezing Cardiovascular: negative: chest pain, palpitations, orthopnea, paroxysmal nocturnal dyspnea, edema, light headedness, other Gastrointestinal: negative: Nausea, Vomiting, Abdominal Pain, Diarrhea, Constipation, Melena, Hematochezia, Other Genitourinary: negative: Dysuria, Frequency, Incontinence, Hematuria, Retention , Other Musculoskeletal: negative: Neck Pain, Shoulder Pain, Arm Pain, Back Pain, Hand Pain, Leg Pain, Foot Pain, Other Skin: negative: Rash, Lesions, Derick, Bruising, Other - Medications/Allergies Allergies/Adverse Reactions: Allergies Allergy/AdvReac Type Severity Reaction Status Date / Time Tetanus Vaccines and Toxoid Allergy Verified 05/03/19 16:42 Medications: Current Medications Acetaminophen (Tylenol) 650 mg PO Q4H PRN PRN Reason: Headache/Fever/Mild Pain (1-3) Hydrocodone Bitart/Acetaminophen ([place] 5/325) 1 tab PO Q4H PRN PRN Reason: Moderate Pain (4-6) Albuterol/Ipratropium (Duoneb) 3 ml NEB [id number] [facility] Last Admin: 05/07/19 06:59 Dose: 3 ml Alogliptin Benzoate (Alogliptin) 25 mg PO DAILY [facility] Last Admin: 05/07/19 09:44 Dose: 25 mg Artificial Tears (Tears Naturale) 2 drop EA EYE PRN PRN PRN Reason: Dry Eyes Atenolol (Tenormin) 100 mg PO DAILY [facility] Last Admin: 05/07/19 09:43 Dose: 100 mg Atorvastatin Calcium (Lipitor) 80 mg PO HS [facility] Last Admin: 05/06/19 21:52 Dose: 80 mg Bisacodyl (Dulcolax) 10 mg PO DAILYPRN PRN PRN Reason: Constipation Bisacodyl (Dulcolax) 10 mg MD DAILYPRN PRN PRN Reason: Constipation Calcium Carbonate (Tums) 1,000 mg PO Q4H PRN PRN Reason: Heartburn or Indigestion Dextrose/Water (Dextrose 50%) 25 gm SLOW IVP PRN PRN PRN Reason: Hypoglycemia Glucagon (Glucagon) 1 mg IM PRN PRN PRN Reason: Hypoglycemia Guaifenesin (Mucinex) 600 mg PO Q12HR [facility] Last Admin: 05/07/19 09:48 Dose: 600 mg Guaifenesin (Robitussin Sf) 200 mg PO Q4H PRN PRN Reason: Cough Hydralazine HCl (Apresoline) 10 mg SLOW IVP Q4H PRN PRN Reason: SBP > 180 and HR < 70 Last Admin: 05/07/19 07:15 Dose: 10 mg Levofloxacin 500 mg/ Device 100 mls @ 100 mls/hr IVPB Q24HR [facility] Last Admin: 05/06/19 16:58 Dose: 100 mls Dextrose/Water (D5w) 1,000 mls @ 0 mls/hr IV .Q0M PRN PRN Reason: Hypoglycemia Insulin Glargine 8 units/ (Miscellaneous Medication) 0.08 mls @ 0 mls/hr SC HS [facility] Last Admin: 05/06/19 21:52 Dose: 0.08 mls Insulin Glargine 8 units/ (Miscellaneous Medication) 0.08 mls @ 0 mls/hr SC QAM [facility] Last Admin: 05/07/19 09:45 Dose: 0.08 mls Insulin Human Lispro (Humalog) 0 units SC .AGGRESSIVE SLIDING PRN PRN Reason: Aggressive Correctional Scale Last Admin: 05/07/19 10:59 Dose: 9 unit Insulin Human Lispro (Humalog) 0 units SC .BEDTIME SLIDING SC PRN PRN Reason: Bedtime Correctional Scale Last Admin: 05/03/19 21:32 Dose: 5 units Loperamide HCl (Imodium) 2 mg PO PRN PRN PRN Reason: Diarrhea/Loose Stools Loratadine (Claritin) 10 mg PO DAILYPRN PRN PRN Reason: Sinus Symptoms Losartan Potassium (Cozaar) 100 mg PO DAILY [facility] Last Admin: 05/07/19 09:45 Dose: 100 mg Nitroglycerin (Nitrostat) 0.4 mg SL Q5MIN PRN PRN Reason: Chest Pain Last Admin: 05/05/19 20:21 Dose: 1 tab Ondansetron HCl (Zofran Odt) 4 mg PO Q6H PRN PRN Reason: Nausea/Vomiting Ondansetron HCl (Zofran) 4 mg IVP Q6H PRN PRN Reason: Nausea/Vomiting Pantoprazole Sodium (Protonix) 40 mg IVP DAILY [facility] Last Admin: 05/07/19 07:22 Dose: 40 mg Saccharomyces Boulardii (Florastor) 250 mg PO DAILY [facility] Last Admin: 05/07/19 09:43 Dose: 250 mg Senna/Docusate Sodium (Senokot S) 2 tab PO BID PRN PRN Reason: Constipation Sodium Chloride (Brown Nasal [place] 0.65%) 0 ml EA NARE QIDPRN PRN PRN Reason: Nasal Congestion Sodium Chloride (Flush - Normal Saline) 10 ml IVF Q12HR [facility] Last Admin: 05/07/19 07:16 Dose: 10 ml Sodium Chloride (Flush - Normal Saline) 10 ml IVF PRN PRN PRN Reason: Saline Flush Throat Lozenges (Cepastat Lozenges) 1 felicia PO Q2H PRN PRN Reason: Sore Throat Zolpidem Tartrate (Ambien) 5 mg PO HSPRN PRN PRN Reason: Insomnia
[2019-05-07] MEDS ORDERED: Iron Sucrose Complex 200 MG in Sodium Chloride 0.9% 250 ML 250 ML IVPB SCH (12:00)
[2019-05-07] MEDS ORDERED: Iron, Sodium Ferric Gluconate 250 MG in Sodium Chloride 0.9% 100 ML IVPB SCH (12:45)
--- NOTE | 2019-05-07 14:25 | PDOC.CTH ---
Cardiology Progress Note - Subjective The pt seen and examined. No overnight events. No cardiac complaints. - Objective Vital Signs Temp Pulse Resp BP BP BP Pulse Ox 05/07/19 13:13 81 18 98 05/07/19 11:50 97.5 F L 81 18 165/71 H 98 05/07/19 09:43 80 177/74 H 05/07/19 09:40 97.7 F 80 22 H 177/74 H 98 05/07/19 07:32 148/58 H 05/07/19 07:15 98.5 F 80 17 196/68 H 196/68 H 98 05/07/19 06:59 78 16 93 L 05/07/19 04:00 98.1 F 75 18 143/64 H 93 L Weight 154 lb 6.4 oz 05/06/19 05/07/19 05/08/19 06:59 06:59 06:59 Intake Total 50 240 Output Total 200 400 Balance -150 -160 - Physical Examination General/Neuro: alert & oriented x3 Neck: no JVD present Lungs: other: (diminished at bases) Heart: RRR Abdomen: soft Extremities: other: (No edema) - Telemetry Telemetry Rhythm: SR - Labs Result Diagrams: 05/07/19 09:15 05/06/19 04:29 Troponin/CKMB Troponin I 0.019 ng/mL (< 0.028) 05/06/19 04:29 - Assessment/Plan 1. Chest pain - resolved after 2 units of PRBCs tx; 2. Severe Anemia with s/p EGD with A-V malformation,Ulcer and polyp on 2018 - He is eating lunch well at this moment. 3. CAD with hx of multiple LHC with total 3 stent placement - Will resume Plavix and ASA when GI is ok. 4. PVD with hx of total 2 stent to BLE in past - Will resume Plavix and ASA when GI is ok. 5. Peptic ulcer disease with gastritis - On Protonix; Will resume Plavix and ASA when GI is ok. 6. COPD - stable with RA 7. Ex-smoker with 1 pk/day and quit in 04/2019 - smoking cessation education given to the pt. MAR reviewed * March d/c tomorrow. Pt. seen and eval. by me. I agree with the A/P by the PRODUCT MERCHANDISER, chest clear. RRR. No cardiac complaints.[email or web address] Review of Systems - Review of Systems Constitutional: reports: no symptoms reported EENTM: reports: no symptoms reported Respiratory: reports: no symptoms reported Cardiac (ROS): reports: no symptoms reported ABD/GI: reports: no symptoms reported : reports: no symptoms reported Musculoskeletal: reports: no symptoms reported
--- NOTE | 2019-05-07 15:00 | OP ---
DATE OF PROCEDURE: 05/07/2019 PROCEDURES PERFORMED: 1. Esophagogastroduodenoscopy with biopsy. 2. 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 3. Hiatus hernia. DESCRIPTION OF PROCEDURE: The patient was placed on his left lateral position and was given sedation by Anesthesia Department. A Pentax video gastroscope under direct vision was passed down the oropharynx, past the GE junction into the stomach and subsequently into the descending duodenum. The scope was advanced, I believe, as far as to fourth part of the duodenum. The esophageal mucosa appeared normal. The GE junction had no pathology. A small hiatus hernia. 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 The gastric remnant showed 1 cm size of a polyp with what appears to be an ulceration on top of the polyp. This was biopsied. The incisura angularis, no pathology seen. The duodenal bulb, no pathology seen. The scope was advanced as far as down possibly, I believe, mostly to fourth part. Careful withdrawal showed no pathology in the duodenum. The scope was retroflexed to visualize the fundus and cardia. No lesions in the fundus and cardia. The gastric AVM was treated with 7-Greek BICAP. bleeding diffusely from the AVM. The area was cauterized with good hemostasis. Water was irrigated and washed out. any bleeding. The stomach was decompressed and the scope removed. RECOMMENDATIONS: 1. Follow up H and H. 2. Diet as tolerated. Job ID: [id number]
[2019-05-07] MEDS: Atorvastatin Calcium 40 MG TAB PO SCH (20:09)
[2019-05-08 06:02] LABS: Anion Gap 9 mmol/L (10-20); BUN (Urea Nitrogen) 44 mg/dL (8.4-25.7); Calc. Creatinine Clearance 35 mL/min (70-130); Calcium 7.9 mg/dL (7.8-10.44); Carbon Dioxide 21 mmol/L (23-31); Chloride 108 mmol/L (98-107); Estimated GFR-MDRD 36; Glucose 216 mg/dL (83-110); Potassium 4.1 mmol/L (3.5-5.1); Sodium 134 mmol/L (136-145)
[2019-05-08 06:43] LABS: Band 3 % (5-11); Eosinophils 1 % (0-10); Hemoglobin 7.8 g/dL (14.0-18.0); Lymphocytes 16 % (21-51); MDiff Complete? YES; Mean Corpuscular HGB CONC 32.2 g/dL (32.0-36.0); Mean Corpuscular Hemoglobin 28.1 pg (27.0-31.0); Mean Corpuscular Volume 87.1 fL (78.0-98.0); Mean Platelet Volume 7.1 fL (7.4-10.4); Monocytes 8 % (0-10); Neutrophil 72 % (42-75); Nucleated RBC 1 % (0); Platelet Count 577 thou/uL (130-400); Platelet Morphology Comment Appears Increased; Polychromasia SLIGHT = 2-3 cells (100X) (0-2/hpf); RBC Distribution Width 18.5 % (11.5-14.5); Red Blood Cell (RBC) Count 2.79 mill/uL (4.70-6.10); White Blood Cell (WBC) Count 13.3 thou/uL (4.8-10.8)
[2019-05-08 07:19] VITALS: TEMP 98.3
[2019-05-08] MEDS: Losartan 25 MG TAB PO SCH (07:56)
[2019-05-08] MEDS: Saccharomyces boulardii 250 MG CAP PO SCH (07:57)
[2019-05-08] MEDS: Alogliptin 25 MG TAB PO SCH (07:57)
[2019-05-08] MEDS: guaiFENesin ER 600 MG TAB PO SCH (07:57)
[2019-05-08] MEDS: Atenolol 50 MG TAB PO SCH (07:57)
[2019-05-08] MEDS: Pantoprazole 40 MG VIAL IVP SCH (07:58)
[2019-05-08] MEDS: HumaLOG 300 UNITS/3 ML VIAL SC PRN ×2 (07:58→11:10)
[2019-05-08] MEDS ORDERED: Amlodipine 5 MG TAB PO SCH (09:00)
[2019-05-08] MEDS: Insulin Glargine 8 UNITS in Pre-Filled Syringe SC SCH (09:21)
--- NOTE | 2019-05-08 11:08 | DIS ---
DATE OF ADMISSION: 05/03/2019 DATE OF DISCHARGE: 05/08/2019 PRIMARY CARE PHYSICIAN: Rudy Beth MD DISCHARGE DISPOSITION: Home. PRIMARY DISCHARGE DIAGNOSES: 1. Acute upper gastrointestinal bleed. 2. Anemia due to acute blood loss. 3. Chest pain due to angina secondary to anemia. 4. Acute bronchitis. 5. Hyperglycemia associated with diabetes type 2. SECONDARY DISCHARGE DIAGNOSES: Tobacco abuse disorder, peripheral arterial disease, chronic iron deficiency anemia due to chronic blood loss, chronic obstructive pulmonary disease, chronic kidney disease stage 3, diabetes type 2. PRIMARY PROCEDURE/OPERATION: Upper endoscopy was performed by Dr. Lawson and found with large AV malformation, which was cauterized. RADIOLOGICAL INVESTIGATION: Chest x-ray was unremarkable. Echocardiography showed EF 50% to 55% diastolic dysfunction. SIGNIFICANT LABORATORY DATA: WBC 13.3, hemoglobin 7.8, and platelet 577. Sodium 134, creatinine 1.83, potassium 4.1, calcium 7.9. Urinalysis normal. Stool for guaiac positive. DISCHARGE MEDICATIONS: 1. Lipitor 80 mg p.o. daily. 2. Lasix 20 mg p.o. daily. 3. Lopid 600 mg daily. 4. Glargine insulin 30 units subcu daily. 5. Losartan 100 mg p.o. daily. 6. Protonix 40 mg p.o. daily. 7. Januvia 100 mg p.o. b.i.d. 8. Coreg 6.25 mg p.o. b.i.d. 9. Ferrous sulfate 325 mg p.o. b.i.d. 10. Imdur 30 mg p.o. daily. 11. Levofloxacin 500 mg p.o. daily for 5 days. 12. Florastor 250 mg p.o. daily for 5 days. 13. Nitroglycerin p.r.n. basis for chest pain as directed. CONTRAINDICATION: None. CODE STATUS: DNR. INPATIENT ACCOUNT INSTALLATION SPECIALIST: Dr. Wagner was consulted for upper GI bleed. Cardiology group was following for cardiac clearance. TEST RESULT PENDING ON DISCHARGE: None. ALLERGIES: TO TETANUS TOXOID. DISCHARGE PLAN: Posthospital, the patient is instructed to follow up with Dr. Rudy Beth in 1 week and the patient will follow up with Dr. Angel Luis Wagner. HOSPITAL COURSE: A 73-year-old male, who has underlying above-mentioned medical problem, who was having increasing amount of anginal pain, which was requiring nitroglycerin that was related with his severe symptomatic anemia. On admission, his hemoglobin was 5.8. His stool for guaiac was positive. He was given total 2 units of blood transfusion as well as several doses of iron infusion while in the hospital and his hemoglobin remained stable. Gastroenterology was consulted. Initially, there was plan for upper endoscopy, but the patient required cardiac clearance for his recurrent chest pain. Cardiology saw this patient and his troponin was negative and EKG was unremarkable and they cleared him for upper endoscopy. Dr. Lawson did upper endoscopy and the patient was found with large AV malformation in the stomach, which was cauterized as well as a gastric polyp was biopsied. Pathology report is pending by the time of dictation. The patient does not require any colonoscopy. While in hospital, he was having cough productive sputum and we treated him with empiric antibiotic therapy with levofloxacin for possible bronchitis. At this point, the patient is hemodynamically stable. While in hospital, we noted that his blood pressure was running high and that is why we added Imdur on discharge as well as atenolol was changed to Coreg. Echocardiography showed normal EF. The patient will follow up with primary care physician and primary toy stuffer. Overall, the patient is medically stable for discharge. Necessary patient education about avoidance of smoking given. The patient is also advised to hold Plavix for 1 week as per Gastroenterology recommendation and that medication will be restarted after 1 week. I have seen and examined the patient at bedside today. PHYSICAL EXAMINATION: VITAL SIGNS: Currently, temperature 98.9, pulse 78, respiratory rate 19, saturation 93% on room air, blood pressure 163/72, weight 154 pounds. GENERAL: The patient is currently alert and awake, no obvious acute distress. HEENT: Head; normocephalic and atraumatic. LUNGS: Clear without any rhonchi. CARDIAC: S1, S2. Regular without any murmur. ABDOMEN: Soft and benign without any tenderness. EXTREMITIES: No edema. NEUROLOGIC: Nonfocal examination. Overall, the patient is medically stable for discharge today. Job ID: [id number]
[2019-05-08 11:18] VITALS: BP 171/74
--- NOTE | 2019-05-08 11:27 | PDOC.CTH ---
Cardiology Progress Note - Subjective Pt. seen and eval. no new cardiac events. No complaints. Plan for d/c today. - Objective Vital Signs Temp Pulse Resp BP Pulse Ox 05/08/19 11:18 171/74 H 05/08/19 07:57 75 05/08/19 07:20 75 16 95 05/08/19 07:16 98.3 F 73 12 192/84 H 96 05/08/19 04:48 98.9 F 78 19 163/72 H 93 L Weight 154 lb 6.4 oz 05/07/19 05/08/19 05/09/19 06:59 06:59 06:59 Intake Total 240 290 Output Total 400 200 Balance -160 90 - Physical Examination General/Neuro: alert & oriented x3 Neck: no JVD present Lungs: CTA Heart: RRR Abdomen: NT/ND - Telemetry Telemetry Rhythm: NSR - Labs Result Diagrams: 05/08/19 05:29 05/08/19 05:29 Troponin/CKMB Troponin I 0.019 ng/mL (< 0.028) 05/06/19 04:29 - Assessment/Plan 1. Chest pain - resolved after 2 units of PRBCs tx; 2. Severe Anemia with s/p EGD with A-V malformation,Ulcer and polyp on 2018 - continue to monitor. 3. CAD with hx of multiple LHC with total 3 stent placement - Will resume Plavix and ASA when GI is ok. 4. PVD with hx of total 2 stent to BLE in past - Will resume Plavix and ASA when GI is ok. 5. Peptic ulcer disease with gastritis - On Protonix; Will resume Plavix and ASA when GI is ok. 6. COPD - stable with RA 7. Ex-smoker with 1 pk/day and quit in 04/2019 - smoking cessation education given to the pt. MAR reviewed He will need to resume plavix as soon as possible.He has severe CAD and multiple stents. I would like to see the reports/records concerning his CAD and procedures. He can f/u with me in 4-6 weeks in the office. robert
--- NOTE | 2019-05-08 12:19 | PRG ---
DATE OF SERVICE: 05/06/2019 SUBJECTIVE: This is a 73-year-old male, seen by my colleague, Dr. Angel Luis Wagner because of severe microcytic anemia. No nausea, vomiting or GI bleeding. The plan was being made to do an EGD yesterday. However, because of cardiac issue, it was canceled. He was seen by Dr. Roberta Garcia, Cardiology. It was felt that the patient should undergo EGD to document the source of blood loss before the cardiac workup can be done. She did recommend another 2 units of packed RBCs. The patient was supposed to have an EGD done today, but he refused the EGD this morning because of chest pain. When I saw him and explained the need for the EGD as the Cardiology recommended EGD before any intervention. The OR has been pretty busy today and it can be done before sometime tonight. However, he is going to have EGD tomorrow. He at the present time has no chest pain. No dyspepsia or abdominal pain. OBJECTIVE: GENERAL: Appears comfortable. VITAL SIGNS: Stable. Pulse is 69, blood pressure is 173/87. CARDIOVASCULAR SYSTEM: Within normal limits. LUNGS: Within normal limits. ABDOMEN: Soft. No organomegaly. No tenderness. No masses. LABORATORY DATA: From today CBC; WBC 10,900, hemoglobin 7.4, hematocrit 22.7. PLAN: He will be getting 2 more units of today. We will plan for EGD tomorrow. Job ID: [id number]
--- NOTE | 2019-05-08 12:26 | PDOC.PN ---
- Subjective Encounter Start Date: 05/08/19 Encounter Start Time: 10:10 Patient seen and examined. No new complaints. No overnight events - Objective Resuscitation Status - Order Detail: 05/03/19 14:43 Resuscitation Status Routine Resuscitation Status: DNAR: NO Resuscitation Discussed with: discussed with pt MAR Reviewed: Yes Vital Signs & Weight: Vital Signs (12 hours) Temp Pulse Resp BP Pulse Ox 05/08/19 11:18 171/74 H 05/08/19 07:57 75 05/08/19 07:20 75 16 95 05/08/19 07:16 98.3 F 73 12 192/84 H 96 05/08/19 04:48 98.9 F 78 19 163/72 H 93 L Weight Weight 154 lb 6.4 oz I&O: 05/07/19 05/08/19 05/09/19 06:59 06:59 06:59 Intake Total 240 290 Output Total 400 200 Balance -160 90 Result Diagrams: 05/08/19 05:29 05/08/19 05:29 Additional Labs: Accuchecks 05/08/19 05/08/19 05/07/19 10:35 05:42 20:47 POC Glucose 335 H 224 H 145 H 05/07/19 16:25 POC Glucose 306 H EKG Reviewed by me: Yes Phys Exam - Physical Examination Constitutional: NAD HEENT: PERRLA, moist MMs, sclera anicteric Neck: no JVD, supple Respiratory: no wheezing, no rales, no rhonchi Cardiovascular: RRR, no significant murmur, no rub Gastrointestinal: soft, non-tender, no distention, positive bowel sounds Musculoskeletal: no edema, pulses present Neurological: non-focal, normal sensation Psychiatric: normal affect, A&O x 3 Skin: no rash, normal turgor Dx/Plan (1) Chest pain Code(s): R07.9 - CHEST PAIN, UNSPECIFIED Status: Acute Comment: due to anemia vs angina (2) Hyperglycemia due to type 2 diabetes mellitus Code(s): E11.65 - TYPE 2 DIABETES MELLITUS WITH HYPERGLYCEMIA Status: Acute (3) Hyponatremia Code(s): E87.1 - HYPO-OSMOLALITY AND HYPONATREMIA Status: Acute Comment: pseudohyponatremia due to hyperglycemia (4) Symptomatic anemia Code(s): D64.9 - ANEMIA, UNSPECIFIED Status: Acute Comment: s/p total 2 unit PRBC (5) CKD (chronic kidney disease) stage 3, GFR 30-59 ml/min Code(s): N18.3 - CHRONIC KIDNEY DISEASE, STAGE 3 (MODERATE) Status: Chronic (6) COPD (chronic obstructive pulmonary disease) Status: Chronic (7) Iron deficiency anemia due to chronic blood loss Code(s): D50.0 - IRON DEFICIENCY ANEMIA SECONDARY TO BLOOD LOSS (CHRONIC) Status: Chronic (8) Tobacco abuse Code(s): Z72.0 - TOBACCO USE Status: Chronic (9) Elevated brain natriuretic peptide (BNP) level Code(s): R79.89 - OTHER SPECIFIED ABNORMAL FINDINGS OF BLOOD CHEMISTRY Status : Acute (10) GI bleed Code(s): K92.2 - GASTROINTESTINAL HEMORRHAGE, UNSPECIFIED Status: Acute Comment: due to AVM - Plan cont current plan of care, continue antibiotics, respiratory therapy * medication reviewed as below * symptomatic treatment * see discharge summery. Review of Systems - Review of Systems ENT: negative: Ear Pain, Ear Discharge, Nose Pain, Nose Discharge, Nose Congestion, Mouth Pain, Mouth Swelling, Throat Pain, Throat Swelling, Other Respiratory: negative: Cough, Dry, Shortness of Breath, Hemoptysis, SOB with Excertion, Pleuritic Pain, Sputum, Wheezing Cardiovascular: negative: chest pain, palpitations, orthopnea, paroxysmal nocturnal dyspnea, edema, light headedness, other Gastrointestinal: negative: Nausea, Vomiting, Abdominal Pain, Diarrhea, Constipation, Melena, Hematochezia, Other Genitourinary: negative: Dysuria, Frequency, Incontinence, Hematuria, Retention , Other Musculoskeletal: negative: Neck Pain, Shoulder Pain, Arm Pain, Back Pain, Hand Pain, Leg Pain, Foot Pain, Other - Medications/Allergies Allergies/Adverse Reactions: Allergies Allergy/AdvReac Type Severity Reaction Status Date / Time Tetanus Vaccines and Toxoid Allergy Verified 05/03/19 16:42 Medications: Current Medications Acetaminophen (Tylenol) 650 mg PO Q4H PRN PRN Reason: Headache/Fever/Mild Pain (1-3) Hydrocodone Bitart/Acetaminophen ([place] 5/325) 1 tab PO Q4H PRN PRN Reason: Moderate Pain (4-6) Albuterol/Ipratropium (Duoneb) 3 ml NEB [id number] IZAIAH Last Admin: 05/08/19 07:20 Dose: 3 ml Alogliptin Benzoate (Alogliptin) 25 mg PO DAILY [facility] Last Admin: 05/08/19 07:57 Dose: 25 mg Amlodipine Besylate (Norvasc) 5 mg PO DAILY [facility] Last Admin: 05/08/19 07:57 Dose: 5 mg Artificial Tears (Tears Naturale) 2 drop EA EYE PRN PRN PRN Reason: Dry Eyes Atenolol (Tenormin) 100 mg PO DAILY [facility] Last Admin: 05/08/19 07:57 Dose: 100 mg Atorvastatin Calcium (Lipitor) 80 mg PO [facility] Last Admin: 05/07/19 20:09 Dose: 80 mg Bisacodyl (Dulcolax) 10 mg PO DAILYPRN PRN PRN Reason: Constipation Bisacodyl (Dulcolax) 10 mg [place] DAILYPRN PRN PRN Reason: Constipation Calcium Carbonate (Tums) 1,000 mg PO Q4H PRN PRN Reason: Heartburn or Indigestion Dextrose/Water (Dextrose 50%) 25 gm SLOW IVP PRN PRN PRN Reason: Hypoglycemia Glucagon (Glucagon) 1 mg IM PRN PRN PRN Reason: Hypoglycemia Guaifenesin (Mucinex) 600 mg PO Q12HR [facility] Last Admin: 05/08/19 07:57 Dose: 600 mg Guaifenesin (Robitussin Sf) 200 mg PO Q4H PRN PRN Reason: Cough Hydralazine HCl (Apresoline) 10 mg SLOW IVP Q4H PRN PRN Reason: SBP > 180 and HR < 70 Last Admin: 05/07/19 07:15 Dose: 10 mg Levofloxacin 500 mg/ Device 100 mls @ 100 mls/hr IVPB Q24HR [facility] Last Admin: 05/07/19 15:54 Dose: 100 mls Dextrose/Water (D5w) 1,000 mls @ 0 mls/hr IV .Q0M PRN PRN Reason: Hypoglycemia Insulin Glargine 8 units/ (Miscellaneous Medication) 0.08 mls @ 0 mls/hr SC [facility] Last Admin: 05/07/19 21:00 Dose: 0.08 mls Insulin Glargine 8 units/ (Miscellaneous Medication) 0.08 mls @ 0 mls/hr SC [facility] [place] Last Admin: 05/08/19 09:21 Dose: 0.08 mls Insulin Human Lispro (Humalog) 0 units SC .AGGRESSIVE SLIDING PRN PRN Reason: Aggressive Correctional Scale Last Admin: 05/08/19 11:10 Dose: 11 unit Insulin Human Lispro (Humalog) 0 units SC .BEDTIME SLIDING SC PRN PRN Reason: Bedtime Correctional Scale Last Admin: 05/03/19 21:32 Dose: 5 units Loperamide HCl (Imodium) 2 mg PO PRN PRN PRN Reason: Diarrhea/Loose Stools Loratadine (Claritin) 10 mg PO DAILYPRN PRN PRN Reason: Sinus Symptoms Losartan Potassium (Cozaar) 100 mg PO DAILY [facility] Last Admin: 05/08/19 07:56 Dose: 100 mg Nitroglycerin (Nitrostat) 0.4 mg SL Q5MIN PRN PRN Reason: Chest Pain Last Admin: 05/05/19 20:21 Dose: 1 tab Ondansetron HCl (Zofran Odt) 4 mg PO Q6H PRN PRN Reason: Nausea/Vomiting Ondansetron HCl (Zofran) 4 mg IVP Q6H PRN PRN Reason: Nausea/Vomiting Pantoprazole Sodium (Protonix) 40 mg IVP DAILY [facility] Last Admin: 05/08/19 07:58 Dose: 40 mg Saccharomyces Boulardii (Florastor) 250 mg PO DAILY [facility] Last Admin: 05/08/19 07:57 Dose: 250 mg Senna/Docusate Sodium (Senokot S) 2 tab PO BID PRN PRN Reason: Constipation Sodium Chloride ([place] Nasal [place] 0.65%) 0 ml EA NARE QIDPRN PRN PRN Reason: Nasal Congestion Sodium Chloride (Flush - Normal Saline) 10 ml IVF Q12HR [facility] Last Admin: 05/08/19 07:58 Dose: 10 ml Sodium Chloride (Flush - Normal Saline) 10 ml IVF PRN PRN PRN Reason: Saline Flush Last Admin: 05/07/19 15:55 Dose: 10 ml Throat Lozenges (Cepastat Lozenges) 1 felicia PO Q2H PRN PRN Reason: Sore Throat Zolpidem Tartrate (Ambien) 5 mg PO HSPRN PRN PRN Reason: Insomnia
== END 2019-05-08 12:00 | disposition home or self-care (01) | DRG 378 ==
LOC: ERS 10:55 → 2NO 13:19 → ERHOLD 13:19 → 2NO 16:28
PROVIDERS: ADMIT Internal Medicine; ATTEND Internal Medicine
PROC: 30233N1 Transfusion of Nonautologous Red Blood Cells into Peripheral Vein, Percutaneous Approach (ICD-10-PCS; 2019-05-03)
PROC: 0DB68ZX Excision of Stomach, Via Natural or Artificial Opening Endoscopic, Diagnostic (ICD-10-PCS; principal; 2019-05-07)
PROC: 0W3P8ZZ Control Bleeding in Gastrointestinal Tract, Via Natural or Artificial Opening Endoscopic (ICD-10-PCS; 2019-05-07)
DX: K55.21 Angiodysplasia of colon with hemorrhage (principal); E87.1 Hypo-osmolality and hyponatremia; J44.0 Chronic obstructive pulmonary disease with (acute) lower respiratory infection; D62 Acute posthemorrhagic anemia; I12.9 Hypertensive chronic kidney disease with stage 1 through stage 4 chronic kidney disease, or unspecified chronic kidney disease; Z66 Do not resuscitate; E11.22 Type 2 diabetes mellitus with diabetic chronic kidney disease; N18.9 Chronic kidney disease, unspecified; D63.1 Anemia in chronic kidney disease; M47.9 Spondylosis, unspecified; F17.210 Nicotine dependence, cigarettes, uncomplicated; N18.3 Chronic kidney disease, stage 3 (moderate); K21.9 Gastro-esophageal reflux disease without esophagitis; I25.10 Atherosclerotic heart disease of native coronary artery without angina pectoris; E11.65 Type 2 diabetes mellitus with hyperglycemia; E11.51 Type 2 diabetes mellitus with diabetic peripheral angiopathy without gangrene; E88.09 Other disorders of plasma-protein metabolism, not elsewhere classified; D72.829 Elevated white blood cell count, unspecified; R79.89 Other specified abnormal findings of blood chemistry; K29.70 Gastritis, unspecified, without bleeding; K44.9 Diaphragmatic hernia without obstruction or gangrene; K31.7 Polyp of stomach and duodenum; M19.90 Unspecified osteoarthritis, unspecified site; J20.9 Acute bronchitis, unspecified; Z90.81 Acquired absence of spleen; Z87.11 Personal history of peptic ulcer disease; Z95.828 Presence of other vascular implants and grafts; I25.2 Old myocardial infarction; Z88.7 Allergy status to serum and vaccine; Z95.5 Presence of coronary angioplasty implant and graft
CPT/HCPCS: 36415; 36416; 36430; 71045; 80048; 80053; 80061; 81001; 82274; 82607; 82728; 82746; 83540; 83550; 83880; 84443; 84484; 85025; 86850; 86900; 86901; 88305; 88312; 93005; 93306; 94640; 96360; C9113; J0360; J1825; J1956; J2916; J3490; J7050; J7620; P9016

== ENCOUNTER 2019-05-19 12:02 | Day surgery (SDC) | payer MEDICARE, MEDICAID ==
[2019-05-19] MEDS ORDERED: EPOETIN ALFA-EPBX (NON-ESRD) 40,000 UNIT/ML VIAL ONE (12:05)
[2019-05-19] MEDS ORDERED: EPOETIN ALFA-EPBX (ESRD) 40,000 UNIT/ML VIAL SC SCH (12:15)
[2019-05-19] MEDS ORDERED: EPOETIN ALFA-EPBX (NON-ESRD) 40,000 UNIT/ML VIAL SC SCH (12:15)
[2019-05-19 13:12] VITALS: BP 142/63; TEMP 98
== END 2019-05-19 13:23 | disposition home or self-care (01) ==
LOC: ONC/OP 12:02
PROVIDERS: ATTEND Internal Medicine Hematology & Oncology
DX: N18.9 Chronic kidney disease, unspecified (principal); D63.1 Anemia in chronic kidney disease; D50.8 Other iron deficiency anemias
CPT/HCPCS: 96372; Q5106

== ENCOUNTER 2019-06-09 11:30 | Day surgery (SDC) | payer MEDICARE, MEDICAID ==
[2019-06-09] MEDS ORDERED: EPOETIN ALFA-EPBX (ESRD) 40,000 UNIT/ML VIAL SC SCH (11:45)
[2019-06-09 11:47] VITALS: BP 128/61; TEMP 97.9
== END 2019-06-09 11:56 | disposition home or self-care (01) ==
LOC: ONC/OP 11:30
PROVIDERS: ATTEND Internal Medicine Hematology & Oncology
DX: N18.9 Chronic kidney disease, unspecified (principal); D63.1 Anemia in chronic kidney disease; D50.8 Other iron deficiency anemias; Z88.7 Allergy status to serum and vaccine; Z79.4 Long term (current) use of insulin; Z79.899 Other long term (current) drug therapy
CPT/HCPCS: 96372; Q5105

== ENCOUNTER 2019-06-23 11:34 | Day surgery (SDC) | payer MEDICARE, MEDICAID ==
[2019-06-23] MEDS ORDERED: EPOETIN ALFA-EPBX (NON-ESRD) 40,000 UNIT/ML VIAL ONE (11:36)
[2019-06-23] MEDS ORDERED: EPOETIN ALFA-EPBX (ESRD) 40,000 UNIT/ML VIAL SC SCH (11:45)
[2019-06-23 11:49] VITALS: BP 187/96; TEMP 97.6
== END 2019-06-23 11:53 | disposition home or self-care (01) ==
LOC: ONC/OP 11:34
PROVIDERS: ATTEND Internal Medicine Hematology & Oncology
DX: N18.9 Chronic kidney disease, unspecified (principal); D63.1 Anemia in chronic kidney disease; D50.8 Other iron deficiency anemias; Z88.7 Allergy status to serum and vaccine
CPT/HCPCS: 82728; 96372; Q5105; Q5106

== ENCOUNTER 2019-08-04 11:20 | Inpatient (IN) | payer MEDICARE, OTHER ==
[2019-08-04 12:03] LABS: #Eosinphils 0.2 thou/uL (0.0-0.7); #Monocytes 0.7 thou/uL (0.11-0.59); #Neutrophils 5.5 thou/uL (1.40-6.50); %Basophils 0.4 % (0.0-1.0); %Eosinophils 1.9 % (0.0-10.0); %Lymphocytes 23.7 % (21.0-51.0); %Monocytes 8.3 % (0.0-10.0); %Neutrophils 65.7 % (42.0-75.0); Hemoglobin 5.2 g/dL (14.0-18.0); Mean Corpuscular HGB CONC 31.3 g/dL (32.0-36.0); Mean Corpuscular Hemoglobin 29.2 pg (27.0-31.0); Mean Corpuscular Volume 93.3 fL (78.0-98.0); Mean Platelet Volume 6.8 fL (7.4-10.4); Platelet Count 862 thou/uL (130-400); RBC Distribution Width 16.2 % (11.5-14.5); Red Blood Cell (RBC) Count 1.79 mill/uL (4.70-6.10); White Blood Cell (WBC) Count 8.4 thou/uL (4.8-10.8)
[2019-08-04 12:06] LABS: INR-International Normal Ratio 1.1; Prothrombin Time 13.9 SEC (12.0-14.7)
[2019-08-04 12:07] LABS: PTT 27.7 SEC (22.9-36.1)
[2019-08-04 12:16] LABS: ALT (SGPT) 8 U/L (8-55); AST (SGOT) 8 U/L (5-34); Albumin 3.4 g/dL (3.4-4.8); Alkaline Phosphatase 256 U/L (40-150); Anion Gap 12 mmol/L (10-20); BUN (Urea Nitrogen) 51 mg/dL (8.4-25.7); Bilirubin, Total Less than 0.2 mg/dL (0.2-1.2); Calc. Creatinine Clearance 0 mL/min (70-130); Calcium 8.4 mg/dL (7.8-10.44); Carbon Dioxide 21 mmol/L (23-31); Chloride 104 mmol/L (98-107); Estimated GFR-MDRD 31; Globulin 3.1 g/dL (2.4-3.5); Glucose 426 mg/dL (83-110); Potassium 5.1 mmol/L (3.5-5.1); Protein, Total 6.5 g/dL (5.8-8.1); Sodium 132 mmol/L (136-145)
--- NOTE | 2019-08-04 12:45 | RAD ---
EXAM: Portable chest PROVIDED CLINICAL HISTORY: Chest pain COMPARISON: 05/03/2019 FINDINGS: Cardiac and mediastinal silhouette is within normal limits. No focal consolidation, pleural fluid or pneumothorax evident. Vascular calcification is noted involving the aortic arch. IMPRESSION: No evidence for an acute cardiopulmonary process.
[2019-08-04 14:37] LABS: Platelet Morphology Comment Appears Increased
[2019-08-04] MEDS ORDERED: Ondansetron PF 4 MG/2 ML Vial IVP PRN (14:37)
[2019-08-04] MEDS ORDERED: Bisacodyl 5 MG TAB PO PRN (14:37)
[2019-08-04 14:38] LABS: Anisocytosis SLIGHT = 6-15 cells (100X) (0-5/hpf); Polychromasia MODERATE = 3-4 cells (100X) (0-2/hpf); Target Cells SLIGHT = 2-5 cells (100X) (0-1/hpf)
[2019-08-04 14:40] LABS: Schistocytes SLIGHT = 2-5 cells (100X) (0-1/hpf); Spherocytes SLIGHT = 1-5 cells (100X) (None Seen)
[2019-08-04] MEDS ORDERED: Dextrose 50% Abboject 50 ML SYRINGE SLOW IVP PRN (14:53)
[2019-08-04] MEDS ORDERED: Dextrose 5% in Water 1,000 ML IV PRN (14:53)
[2019-08-04] MEDS ORDERED: hydrALAZINE 20 MG/ML VIAL SLOW IVP PRN (14:59)
[2019-08-04] MEDS ORDERED: Pantoprazole 80 MG in Sodium Chloride 0.9% 100 ML IVP SCH (15:00)
[2019-08-04 15:13] LABS: Troponin I Less than 0.010 ng/mL (< 0.028)
--- NOTE | 2019-08-04 15:20 | HP ---
PRIMARY CARE PROVIDER: Dr. Rudy Beth. CHIEF COMPLAINT: Low hemoglobin. HISTORY OF PRESENT ILLNESS: Mr. Venegas is a pleasant 74-year-old gentleman, who was seen at [facility] on August 04, 2019. He was hospitalized at this facility from May 03 to of this year for acute upper GI bleed and anemia due to acute blood loss. He underwent EGD during that hospitalization and was found to have a large AV malformation in the stomach, which was cauterized. Gastric polyp was biopsied at that time as well. He reports that he has blood work done every two weeks and is followed up by oncology clinic. He reports that over the last few days, he has been having chest pain with exertion. He reports it as left-sided, dull, nonradiating, improved with rest, worse with exertion, not accompanied by shortness of breath. He reports that it is accompanied by lightheadedness. He also reports black stools a few days ago, but he has not had any black stools over the last couple of days. He denies any abdominal pain. He denies any fevers or chills. He had blood work done today and was found to have low hemoglobin and was advised to go to the emergency room. The patient also reports that he has been getting Procrit injections every two weeks, last dose was two weeks ago. He also reports that he has been using his nitroglycerin more frequently over the last couple of days. REVIEW OF SYSTEMS: All systems were reviewed and found to be negative except for the pertinent positives mentioned above. PAST MEDICAL HISTORY: Hypertension, COPD, diabetes mellitus type 2, chronic anemia; chronic kidney disease, stage 3, osteoarthritis, peptic ulcer disease, gastroesophageal reflux disease, peripheral arterial disease, myocardial infarction, coronary artery disease, and gastric AV malformation. PAST SURGICAL HISTORY: EGD, colonoscopy, cardiac catheterization with stent placement, splenectomy, and neck surgery. SOCIAL HISTORY: The patient denies current tobacco use, alcohol use, or recreational drug use. FAMILY HISTORY: He denied any family history of premature coronary artery disease. ALLERGIES: TETANUS TOXOID. CURRENT MEDICATIONS: These need to be clarified. In the past, he was on atorvastatin, furosemide, gemfibrozil, glargine insulin, losartan, nitroglycerin, pantoprazole, sitagliptin, Coreg, ferrous sulfate, and isosorbide mononitrate. CODE STATUS: I discussed his code status. He is DNAR. PHYSICAL EXAMINATION: GENERAL: On examination, Mr. Venegas is awake and alert, not in acute distress. VITAL SIGNS: Blood pressure is 124/62, pulse 89, respiratory rate 16, and oxygen saturation 98% on room air. He is afebrile. EYES: No scleral icterus, the patient has conjunctival pallor. ENT: Moist mucosal membranes. No oropharyngeal erythema or exudates. NECK: Supple, nontender, trachea is midline. RESPIRATORY: Accessory muscles of breathing are not active. Chest wall movements are symmetric bilaterally. LUNGS: Clear to auscultation, without wheeze, rhonchi, or crepitations. CARDIOVASCULAR: S1 and S2 are heard, regular. Peripheral pulses palpable. No carotid bruit. No pericardial rub. ABDOMEN: Soft, nontender, and bowel sounds are heard. NEUROLOGIC: Cranial nerves 2 through 12 are intact. MUSCULOSKELETAL: Power is 5/5 in all 4 extremities. SKIN: 1+ lower extremity edema bilaterally. LYMPHATIC: No cervical lymphadenopathy. PSYCHIATRIC: Normal mood, normal affect. The patient is oriented to person, place, and time. LABORATORY DATA: Mr. Venegas's labs and investigations were reviewed. I reviewed his electrocardiogram, which shows normal sinus rhythm, no ST changes to suggest an acute coronary syndrome. I also reviewed his chest x-ray, which does not show any pulmonary infiltrates. He has normal white count, normocytic anemia with hemoglobin 5.2, last known hemoglobin 8.5 on May 15, 2019, elevated platelet count of 862,000, up from 748,000 on May 15, 2019, INR 1.1, sodium mildly decreased at 132, normal potassium, elevated blood urea nitrogen of 51, elevated creatinine of 2.11, creatinine was 1.83 on May 08, 2019, normal calcium, elevated alkaline phosphatase of 256, up from 229 on May 04, 2019, and normal albumin. ASSESSMENT AND PLAN: Mr. Venegas is a pleasant 74-year-old gentleman, who was seen at [facility] on July [QAMARKER]2018. His problem list includes: 1. Severe symptomatic anemia: Mr. Venegas is presenting with severe symptomatic anemia. Etiology is unclear. He does report having black stools until a couple of days ago, raising the possibility of an upper GI bleed. He will be admitted to the hospital for further management. He will be started on PPI drip. He will receive packed RBC transfusions. GI Service will be consulted. H and H will be followed and patient transfused as needed. 2. Coronary artery disease: The patient appears to be having symptoms from demand ischemia. We will evaluate him once he receives packed RBC transfusion with improvement in hemoglobin. 3. Diabetes mellitus type 2: We will start Mr. Venegas on Accu-Cheks and insulin sliding scale. We will resume home medications once clarified. 4. Hypertension: Resume home medications once clarified, monitor vital signs and titrate antihypertensives as needed. 5. Dyslipidemia: Continue medications including statin once clarified. Many thanks for allowing me to participate in your patient's care. Please feel free to contact me with any questions or concerns. LEVEL OF RISK: High. LEVEL OF COMPLEXITY: High. Job ID: [id number]
[2019-08-04 15:25] LABS: Hemoglobin 5.5 g/dL (14.0-18.0)
[2019-08-04 15:38] LABS: Iron 11 ug/dL (65-175); Iron Binding Capacity, Total 411 mcg/dL (261-462)
[2019-08-04 15:58] LABS: Ferritin 8.73 ng/mL (22-322)
[2019-08-04 16:04] LABS: Thyroid Stimulating Hormone 1.5211 uIU/mL (0.35-4.94)
[2019-08-04 18:37] LABS: Troponin I 0.013 ng/mL (< 0.028)
[2019-08-04] MEDS: Pantoprazole 80 MG in Sodium Chloride 0.9% 100 ML IVPB SCH (21:03)
[2019-08-04 21:52] LABS: Hemoglobin 6.4 g/dL (14.0-18.0)
[2019-08-04] MEDS: HumaLOG 300 UNITS/3 ML VIAL SC PRN (22:04)
[2019-08-05] MEDS: Pantoprazole 80 MG in Sodium Chloride 0.9% 100 ML IVPB SCH ×2 (04:28→20:15)
[2019-08-05 05:53] LABS: #Eosinphils 0.4 thou/uL (0.0-0.7); #Lymphocytes 2.2 thou/uL (1.20-3.40); #Monocytes 1.1 thou/uL (0.11-0.59); #Neutrophils 5.4 thou/uL (1.40-6.50); %Basophils 0.5 % (0.0-1.0); %Eosinophils 4.4 % (0.0-10.0); %Lymphocytes 24.5 % (21.0-51.0); %Monocytes 11.8 % (0.0-10.0); %Neutrophils 58.9 % (42.0-75.0); Hemoglobin 6.5 g/dL (14.0-18.0); Mean Corpuscular HGB CONC 32.7 g/dL (32.0-36.0); Mean Corpuscular Hemoglobin 30.7 pg (27.0-31.0); Mean Corpuscular Volume 93.7 fL (78.0-98.0); Mean Platelet Volume 6.9 fL (7.4-10.4); Platelet Count 758 thou/uL (130-400); RBC Distribution Width 15.1 % (11.5-14.5); Red Blood Cell (RBC) Count 2.11 mill/uL (4.70-6.10); White Blood Cell (WBC) Count 9.1 thou/uL (4.8-10.8)
[2019-08-05 06:15] LABS: Anion Gap 12 mmol/L (10-20); BUN (Urea Nitrogen) 46 mg/dL (8.4-25.7); Calc. Creatinine Clearance 31 mL/min (70-130); Calcium 8.8 mg/dL (7.8-10.44); Carbon Dioxide 21 mmol/L (23-31); Chloride 109 mmol/L (98-107); Estimated GFR-MDRD 35; Glucose 274 mg/dL (83-110); Potassium 4.8 mmol/L (3.5-5.1); Sodium 137 mmol/L (136-145)
[2019-08-05] MEDS ORDERED: PROPOFOL 200 MG/20 ML VIAL ONE (10:25)
[2019-08-05] MEDS ORDERED: Lidocaine 1% PF 5 ML VIAL ONE (10:25)
[2019-08-05] MEDS ORDERED: Promethazine HCl 25 MG/ML VIAL IM PRN (15:37)
[2019-08-05] MEDS ORDERED: Morphine Sulfate 2 MG/ML SYRINGE SLOW IVP PRN (15:37)
[2019-08-05] MEDS ORDERED: Promethazine HCl 25 MG/ML VIAL SLOW IVP PRN (15:37)
[2019-08-05] MEDS ORDERED: Ondansetron HCl/PF 4 MG/2 ML Vial IVP PRN (15:37)
--- NOTE | 2019-08-05 16:53 | OP ---
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 PROCEDURE PERFORMED: Esophagogastroduodenoscopy with control of hemorrhage by argon plasma coagulation. INDICATIONS: Melena and acute on chronic anemia in a patient with known history of gastric AVM and gastric tubular adenoma. MEDICATIONS: See Anesthesia record. FINDINGS: After discussion of the risks, benefits, and alternatives of the procedure, informed consent was obtained and witnessed. Pre-endoscopic cardiopulmonary examination was satisfactory. Time-out was performed before sedation was achieved. Sedation was achieved with Anesthesia assistance in the endoscopy unit. A Pentax adult upper endoscope was placed into the oropharynx and passed through the cricopharyngeus under direct visualization. The esophageal mucosa appeared normal throughout. The endoscope was advanced into the stomach. There was a large amount of fresh blood clot filling out the gastric fundus in the proximal gastric body. Initially, I was unable to visualize the fundus due to the large amount of clots. I did examine the distal gastric body and gastric antrum. The mucosa in this area looked normal. There is a 1.5 cm polyp in the gastric antrum, which had been previously biopsied and is known to be a tubular adenoma. This did not appear ulcerated, did not appear to be any cause of bleeding. The endoscope was advanced through the pylorus and into the first and second portions of the duodenum, which appeared normal. Attention was then directed back toward the gastric fundus. Using suction, we were able to evacuate all of the blood clots either through the scope or drawn out of the patient's mouth. In this fashion, we were able to completely clear the gastric fundus of any clots and get a good examination of the entire mucosa. In the proximal gastric body, there is an arteriovenous malformation measuring about 5 or 6 mm in diameter. There is overlying blood clot on top of this AVM. There are no other lesions noted. This is almost certainly the site of his bleeding. I performed APC treatment to this AVM site. In this fashion, the lesion was ablated with good hemostasis achieved. The area was watched for 5 minutes following ablation and there was no recurrence of bleeding from this area. The upper endoscope was then completely withdrawn and the patient was allowed to recover. The patient tolerated the procedure well. There were no immediate postprocedure complications. IMPRESSION: 1. Large amount of blood clots filling the gastric fundus, completely evacuated. 2. 5 to 6 mm arteriovenous malformation in the proximal gastric body, with overlying clot. The AVM was treated with argon plasma coagulation with good hemostasis achieved. 3. 1.5 cm polyp in the gastric antrum, known to represent a tubular adenoma, nonbleeding. This was not removed. 4. Otherwise normal EGD. RECOMMENDATIONS: 1. IV proton pump inhibitor for the next 48 hours at least. 2. Monitor H and H, transfuse as needed. 3. Advance diet. 4. Avoid all anticoagulation and anti-platelet agents if possible. 5. We will have to discuss his gastric antral tubular adenoma at followup. Ideally, this should be removed, but I did not attempt removal on this examination due to the patient's presentation with severe bleeding from another lesion. We may possibly refer him to a tertiary center for endoscopic mucosal resection of this lesion in the future, depending on his clinical status and what he desires. Job ID: [id number]
[2019-08-05] MEDS ORDERED: Losartan 25 MG TAB PO SCH (17:15)
[2019-08-05] MEDS: Carvedilol 6.25 MG TAB PO SCH (17:18)
[2019-08-05] MEDS: HumaLOG 300 UNITS/3 ML VIAL SC PRN ×2 (17:21→21:01)
[2019-08-05 17:43] LABS: Hemoglobin 7.4 g/dL (14.0-18.0)
[2019-08-05 23:01] LABS: Hemoglobin 7.1 g/dL (14.0-18.0)
[2019-08-06] MEDS: Pantoprazole 80 MG in Sodium Chloride 0.9% 100 ML IVPB SCH ×2 (04:52→16:48)
[2019-08-06 05:04] LABS: #Eosinphils 0.5 thou/uL (0.0-0.7); #Lymphocytes 2.3 thou/uL (1.20-3.40); #Neutrophils 5.9 thou/uL (1.40-6.50); %Basophils 0.4 % (0.0-1.0); %Eosinophils 5.5 % (0.0-10.0); %Lymphocytes 23.6 % (21.0-51.0); %Neutrophils 60.5 % (42.0-75.0); Hemoglobin 6.9 g/dL (14.0-18.0); Mean Corpuscular HGB CONC 32.6 g/dL (32.0-36.0); Mean Corpuscular Hemoglobin 29.7 pg (27.0-31.0); Mean Corpuscular Volume 91.2 fL (78.0-98.0); Mean Platelet Volume 6.7 fL (7.4-10.4); Platelet Count 645 thou/uL (130-400); RBC Distribution Width 16.7 % (11.5-14.5); Red Blood Cell (RBC) Count 2.31 mill/uL (4.70-6.10); White Blood Cell (WBC) Count 9.7 thou/uL (4.8-10.8)
[2019-08-06 05:33] LABS: Anion Gap 11 mmol/L (10-20); BUN (Urea Nitrogen) 44 mg/dL (8.4-25.7); Calc. Creatinine Clearance 40 mL/min (70-130); Calcium 8.4 mg/dL (7.8-10.44); Carbon Dioxide 21 mmol/L (23-31); Chloride 108 mmol/L (98-107); Estimated GFR-MDRD 46; Glucose 181 mg/dL (83-110); Potassium 5.1 mmol/L (3.5-5.1); Sodium 135 mmol/L (136-145)
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
[2019-08-06] MEDS ORDERED: Nitroglycerin 0.4 MG TAB (25 Tab Bottle) ONE (09:56)
[2019-08-06] MEDS: Carvedilol 6.25 MG TAB PO SCH ×2 (10:00→16:48)
--- NOTE | 2019-08-06 10:01 | PRG ---
DATE OF SERVICE: 08/06/2019 SUBJECTIVE: Mr. Venegas is feeling fine. He has not had any bowel movements today, certainly no melena. He is tolerating his diet. He has been hemodynamically stable. Hemoglobin drifted down to 6.9, and I believe one more unit of RBC transfusion is planned. OBJECTIVE: VITAL SIGNS: Temperature 98.2, pulse 79, blood pressure 151/67, and 95% oxygen saturation on room air. GENERAL: No acute distress. HEART: Regular rate and rhythm. LUNGS: Clear to auscultation bilaterally. ABDOMEN: Soft and nontender to palpation throughout. EXTREMITIES: No peripheral edema. LABORATORY STUDIES: Hemoglobin 6.9, down from 7.4 yesterday afternoon post transfusion. WBC is 9.7, platelets 645. INR 1.1. Sodium 135, potassium 5.1, BUN stable at 44, creatinine 1.49, and glucose 200. ASSESSMENT AND PLAN: 1. Upper gastrointestinal bleeding from gastric arteriovenous malformation, status post APC treatment yesterday. 2. Acute on chronic blood loss anemia, stabilizing. The patient is getting one more unit of RBC transfusion today. 3. 1.5 cm gastric antral tubular adenoma, not removed. The patient seems to be doing well. No evidence of overt bleeding since endoscopy yesterday. Agree with further transfusion today. I would keep him on the IV PPI at least through tomorrow. He needs to be on Protonix 40 mg twice daily thereafter. I would still recommend avoiding all anticoagulation and anti-platelet agents if possible. His gastric polyp is something that we will discuss at outpatient followup. I would not attempt removal of such a lesion in this acute context. Job ID: [id number]
[2019-08-06] MEDS ORDERED: Nitroglycerin 0.4 MG TAB (25 Tab Bottle) SL PRN (11:26)
[2019-08-06] MEDS ORDERED: Insulin Glargine 30 UNITS in Pre-Filled Syringe 1 EACH SC SCH (11:30)
[2019-08-06] MEDS ORDERED: Isosorbide Mononitrate (ER) 30 MG TAB PO SCH (11:30)
[2019-08-06] MEDS: HumaLOG 300 UNITS/3 ML VIAL SC PRN (11:41)
--- NOTE | 2019-08-06 13:05 | PDOC.HOSPP ---
- Subjective Encounter Date: 08/06/19 Encounter Time: 13:03 Subjective: Feels ok. Had some CP this morning, but says that has been going on since he first had the anemia. Resolved with one SLNTG and EKG was unchanged. - Objective Vital Signs & Weight: Vital Signs (12 hours) Temp Pulse Pulse Resp BP BP BP 08/06/19 11:46 98.2 F 80 18 136/63 08/06/19 11:31 98.5 F 82 16 141/64 H 08/06/19 10:00 173/76 H 08/06/19 08:00 08/06/19 07:57 98.2 F 79 16 151/67 H 08/06/19 07:09 08/06/19 04:10 98.3 F 73 20 BP Pulse Ox 08/06/19 11:46 95 08/06/19 11:31 94 L 08/06/19 10:00 08/06/19 08:00 96 08/06/19 07:57 95 08/06/19 07:09 94 L 08/06/19 04:10 136/62 94 L Weight Weight 146 lb I&O: 08/05/19 08/06/19 08/07/19 06:59 06:59 06:59 Intake Total 650 1180 340 Output Total 1000 1650 Balance -350 -470 340 Result Diagrams: 08/06/19 04:45 08/06/19 04:45 Additional Labs: Accuchecks 08/06/19 08/06/19 08/05/19 11:20 05:23 21:00 POC Glucose 455 H 200 H 408 H 08/05/19 08/05/19 16:30 10:45 POC Glucose 266 H 315 H Hospitalist ROS - Medication Medications: Active Medications Generic Name Dose Route Start Last Admin Trade Name Freq PRN Reason Stop Dose Admin Carvedilol 6.25 mg 08/05/19 17:00 08/06/19 10:00 Coreg PO 6.25 mg BID-WM IZAIAH Administration Hydralazine HCl 10 mg 08/04/19 14:59 08/05/19 09:03 Apresoline SLOW IVP 10 mg Q6H PRN Administration SBP Greater Than 170 Pantoprazole Sodium 80 mg/ 100 mls @ 10 mls/hr 08/04/19 20:00 08/06/19 04:52 Sodium Chloride IVPB 100 mls INF IZAIAH Administration Insulin Glargine 30 units/ 0.3 mls @ 0 mls/hr 08/06/19 11:30 08/06/19 12:37 Miscellaneous Medication SC 08/06/19 13:30 0.3 mls NOW IZAIAH Administration Insulin Human Lispro 0 units 08/04/19 14:53 08/06/19 11:41 Humalog SC 12 unit .MILD SLIDING SCALE PRN Administration Mild Correctional Scale Insulin Human Lispro 0 units 08/04/19 21:14 08/05/19 21:01 Humalog SC 5 unit .BEDTIME SLIDING SC PRN Administration Bedtime Correctional Scale Isosorbide Mononitrate 30 mg 08/06/19 11:30 08/06/19 12:37 Imdur Er PO 08/06/19 13:30 30 mg NOW IZAIAH Administration Sodium Chloride 10 ml 08/05/19 21:00 08/05/19 20:14 Flush - Normal Saline IVF Not Given Q12HR IZAIHA - Exam General Appearance: NAD, awake alert Heart: RRR, no gallops, no rubs, normal peripheral pulses, II/IV Respiratory: CTAB, no wheezes, no rales, no ronchi, normal chest expansion, no tachypnea, normal percussion Gastrointestinal: soft, non-tender, non-distended, normal bowel sounds, no palpable masses, no hepatomegaly, no splenomegaly, no bruit Neurological: CN's grossly intact Musculoskeletal: normal tone, normal strength Psychiatric: normal affect, normal behavior, A&O x 3 Hosp A/P (1) Anemia due to acute blood loss Code(s): D62 - ACUTE POSTHEMORRHAGIC ANEMIA Status: Acute (2) CAD (coronary artery disease) Code(s): I25.10 - ATHSCL HEART DISEASE OF [place] CORONARY ARTERY W/O ANG PCTRS Status: Acute (3) Chest pain Code(s): R07.9 - CHEST PAIN, UNSPECIFIED Status: Acute (4) CKD (chronic kidney disease) stage 3, GFR 30-59 ml/min Code(s): N18.3 - CHRONIC KIDNEY DISEASE, STAGE 3 (MODERATE) Status: Chronic (5) COPD (chronic obstructive pulmonary disease) Status: Chronic (6) Iron deficiency anemia due to chronic blood loss Code(s): D50.0 - IRON DEFICIENCY ANEMIA SECONDARY TO BLOOD LOSS (CHRONIC) Status: Chronic (7) Tobacco abuse Code(s): Z72.0 - TOBACCO USE Status: Chronic (8) Gastric polyp Code(s): K31.7 - POLYP OF STOMACH AND DUODENUM Status: Acute (9) Gastric AVM Code(s): K31.819 - ANGIODYSPLASIA OF STOMACH AND DUODENUM WITHOUT BLEEDING Status: Acute (10) GI bleed Code(s): K92.2 - GASTROINTESTINAL HEMORRHAGE, UNSPECIFIED Status: Acute (11) Hyperglycemia due to type 2 diabetes mellitus Code(s): E11.65 - TYPE 2 DIABETES MELLITUS WITH HYPERGLYCEMIA Status: Acute - Plan Transfuse another unit today. Had EGD with large AVM cauterized. Continue to monitor H/H. IV PPI. Does not have active internal specialist. He will likely need some further workup for this once he is stable. Staying off antiplatelet therapy and anticoags given the GIB. Getting his home meds corrected and restarted.
[2019-08-06 13:25] VITALS: BMI 21.7
[2019-08-06] MEDS: Gemfibrozil 600 MG TAB PO SCH (16:48)
[2019-08-06] MEDS: Ferrous Sulfate 325 MG TAB PO SCH (20:34)
[2019-08-06] MEDS ORDERED: Atorvastatin Calcium 40 MG TAB PO SCH (21:00)
[2019-08-07] MEDS: Pantoprazole 80 MG in Sodium Chloride 0.9% 100 ML IVPB SCH (04:40)
[2019-08-07 05:57] LABS: Anion Gap 12 mmol/L (10-20); BUN (Urea Nitrogen) 38 mg/dL (8.4-25.7); Calc. Creatinine Clearance 36 mL/min (70-130); Calcium 8.4 mg/dL (7.8-10.44); Carbon Dioxide 19 mmol/L (23-31); Chloride 107 mmol/L (98-107); Estimated GFR-MDRD 40; Glucose 164 mg/dL (83-110); Potassium 4.5 mmol/L (3.5-5.1); Sodium 133 mmol/L (136-145)
[2019-08-07 06:07] LABS: Hemoglobin 8.1 g/dL (14.0-18.0); Mean Corpuscular HGB CONC 32.7 g/dL (32.0-36.0); Mean Corpuscular Volume 88.8 fL (78.0-98.0); Mean Platelet Volume 6.9 fL (7.4-10.4); Platelet Count 582 thou/uL (130-400); RBC Distribution Width 16.4 % (11.5-14.5); Red Blood Cell (RBC) Count 2.79 mill/uL (4.70-6.10)
[2019-08-07 06:08] LABS: Eosinophils 5 % (0-10); Lymphocytes 17 % (21-51); MDiff Complete? YES; Monocytes 13 % (0-10); Neutrophil 65 % (42-75); Platelet Morphology Comment Appears Increased
[2019-08-07] MEDS: Carvedilol 6.25 MG TAB PO SCH (07:50)
[2019-08-07] MEDS: Gemfibrozil 600 MG TAB PO SCH (07:50)
[2019-08-07] MEDS ORDERED: Losartan 25 MG TAB PO SCH ×2 (09:00)
[2019-08-07] MEDS ORDERED: Alogliptin 25 MG TAB PO SCH (09:00)
[2019-08-07] MEDS ORDERED: Amlodipine 10 MG TAB PO SCH (09:00)
[2019-08-07] MEDS ORDERED: Isosorbide Mononitrate (ER) 30 MG TAB PO SCH (09:00)
--- NOTE | 2019-08-07 09:01 | CON ---
DATE OF CONSULTATION: REASON FOR CONSULTATION: Recurrent anemia and melena. HISTORY OF PRESENT ILLNESS: Clinton Venegas is a 74-year-old gentleman, whom I met 3 months ago in early April during hospitalization for [id number] anemia. He has a long history of iron-deficiency anemia and has been getting Procrit injections and iron infusions for several months at the [facility]. He had reported a prior workup at [facility], which included unremarkable colonoscopy within the past few years as well as EGD showing "bleeding from the stomach lining." He had been taking Plavix. He required transfusion during his April hospitalization. EGD was performed on 05/07/[address] Lawson's report details; a 1-cm ulcerated gastric polyp, which was biopsied and turned out to be tubular adenoma. There was also a large AVM in the proximal stomach with active bleeding and Dr. Lawson treated that extensively with BICAP cautery. The patient was able to be discharged shortly thereafter. He states that he did well for a week or two afterwards, but since then, he has again been feeling quite fatigued. He presented with some dyspnea on exertion and exertional angina and was found again to have severe anemia with hemoglobin of 5.2. He received 1 unit RBC transfusion yesterday and it is up to 6.5 today. He has been hemodynamically stable. He says his stools are often black, though not for the past couple of days. Iron indices remain low. He was previously on Plavix, but I think this has been discontinued. He continues on pantoprazole. REVIEW OF SYSTEMS: Full review of systems including constitutional, head, eyes, ears, nose, throat, GI, , cardiovascular, respiratory, musculoskeletal, neurologic systems is negative except as noted in the HPI. No chest pain or shortness of breath this morning. ALLERGIES: TETANUS TOXOID. OUTPATIENT MEDICATIONS: 1. Januvia. 2. Florastor. 3. Pantoprazole 40 mg daily. 4. Nitroglycerin p.r.n. 5. Losartan. 6. Isosorbide mononitrate. 7. Insulin. 8. Gemfibrozil. 9. Furosemide. 10. Ferrous sulfate. 11. Coreg. 12. Atorvastatin. FAMILY HISTORY: Noncontributory. SOCIAL HISTORY: No current tobacco, alcohol, or drug abuse. PAST MEDICAL HISTORY: 1. Hypertension. 2. COPD. 3. Diabetes type 2. 4. Chronic iron-deficiency anemia. 5. Chronic kidney disease stage 3. 6. Osteoarthritis. 7. GERD. 8. Peripheral arterial disease. 9. Myocardial infarction. 10. 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 11. 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 12. Colonoscopy, within the past few years. 13. Splenectomy. PHYSICAL EXAMINATION: VITAL SIGNS: Temperature 98.0, blood pressure 147/104, pulse 84, and 94% oxygen saturation on room air. GENERAL: Pale, 74-year-old man, sitting up in bed comfortably, in no distress. SKIN: Pale. No rashes were palpable. EYES: No scleral icterus. Extraocular movements intact. ENT: Mucous membranes moist. No oral lesions. LYMPH: No submandibular or supraclavicular lymphadenopathy. THYROID: Nontender to palpation. HEART: Regular rate and rhythm. LUNGS: Clear to auscultation bilaterally. ABDOMEN: Bowel sounds present. Soft, nontender to palpation. EXTREMITIES: No peripheral edema. VESSELS: Radial pulses 2+ bilaterally. NEURO: Cranial nerves 2 through 12 intact bilaterally. No focal deficits. LABORATORY STUDIES: Hemoglobin on admission was 5.2 and after 1 unit RBC transfusion, this is up to 6.5 this morning; WBC is 9.1; platelets 758. INR 1.1. Sodium 137, potassium 4.8, BUN 46, creatinine 1.87, glucose 281, calcium 8.8. Troponin negative. Ferritin 8.73, iron 11, TIBC 411. TSH 1.52. IMAGING STUDIES: Chest x-ray shows no acute processes. ASSESSMENT AND PLAN: 1. Voxzx-gv-bydawrt iron-deficiency anemia. 2. Melena. 3. History of gastric arteriovenous malformation, status post cauterization in April 2019. 4. Gastric tubular adenoma, biopsied in April 2019. The patient's presentation is similar to back in April. It appears he continues to have chronic gastrointestinal bleeding. This is likely from that same AVM site, possibly from the ulcerated gastric polyp. He may have developed ulceration, status post treatment of that AVM. Upper endoscopy is warranted for further investigation. Depending on findings, may attempt polypectomy of the 1-cm tubular adenoma, that was demonstrated on his prior exam. May need to perform APC treatment of his AVM. We will just have to see. The patient is receiving 1 more unit of blood today and we will plan for the procedure this afternoon once that unit has been administered. Continue on the IV PPI at this time. It is my understanding that the patient has no longer been taking Plavix. Job ID: [id number]
[2019-08-07] MEDS: Ferrous Sulfate 325 MG TAB PO SCH (09:06)
[2019-08-07] MEDS: HumaLOG 300 UNITS/3 ML VIAL SC PRN ×2 (09:06→11:23)
--- NOTE | 2019-08-07 12:00 | PRG ---
DATE OF SERVICE: 08/07/2019 SUBJECTIVE: Mr. Venegas is feeling well. No abdominal pain. He passed some darker stool earlier. He has been hemodynamically stable. Hemoglobin is up to 8.1 this morning after transfusion yesterday. He is wanting to go home if possible. OBJECTIVE: VITAL SIGNS: Temperature 97.8, pulse 76, blood pressure 144/91, 92% oxygen saturation on room air. GENERAL: No acute distress. HEART: Regular rate and rhythm. LUNGS: Clear to auscultation bilaterally. ABDOMEN: Soft, nontender to palpation. EXTREMITIES: No peripheral edema. LABORATORY STUDIES: Hemoglobin up to 8.1, WBC 10.0, platelets 582. Sodium 133, potassium 4.5, BUN 38, creatinine 1.68, glucose 172. ASSESSMENT AND PLAN: 1. Upper gastrointestinal bleeding from gastric arteriovenous malformation, status post Argon plasma coagulation treatment 2 days ago. 2. Acute on chronic blood loss anemia, stabilized. 3. 1.5 cm gastric antral tubular adenoma, not removed. There has been no evidence of overt bleeding since endoscopy 2 days ago. Hemoglobin is stable. I think the patient is okay for hospital discharge today. He does need to be on Protonix 40 mg twice daily for the foreseeable future. Would still recommend avoiding or minimizing all anticoagulation and antiplatelet agents as possible. His gastric polyp is something that we will discuss in outpatient followup. 4. Gastrointestinal will sign off at this time. Please call back anytime with questions or concerns. Job ID: [id number]
[2019-08-07 16:38] VITALS: BP 131/63; TEMP 97.8
--- NOTE | 2019-08-07 16:52 | EKG ---
Test Reason : Blood Pressure : / mmHG Vent. Rate : 085 BPM Atrial Rate : 085 BPM P-R Int : 168 ms QRS Dur : 116 ms QT Int : 382 ms P-R-T Axes : 070 -36 094 degrees QTc Int : 454 ms Normal sinus rhythm Non-specific intra-ventricular conduction delay Left axis deviation Anterior infarct , age undetermined cannot be excluded Abnormal ECG Confirmed by MARÍA LEUNG ([id number]) on 08/07/2019 4:52:00 PM Referred By: LUIGI Confirmed By:MARÍA LEUNG
== END 2019-08-07 18:00 | disposition home or self-care (01) | DRG 378 ==
LOC: ERS 11:20 → 2NO 17:19
PROVIDERS: ADMIT Internal Medicine; ATTEND Internal Medicine
PROC: 30233N1 Transfusion of Nonautologous Red Blood Cells into Peripheral Vein, Percutaneous Approach (ICD-10-PCS; 2019-08-04)
PROC: 0DC78ZZ Extirpation of Matter from Stomach, Pylorus, Via Natural or Artificial Opening Endoscopic (ICD-10-PCS; principal; 2019-08-05)
PROC: 0W3P8ZZ Control Bleeding in Gastrointestinal Tract, Via Natural or Artificial Opening Endoscopic (ICD-10-PCS; 2019-08-05)
DX: K55.21 Angiodysplasia of colon with hemorrhage (principal); D62 Acute posthemorrhagic anemia; J44.9 Chronic obstructive pulmonary disease, unspecified; E11.22 Type 2 diabetes mellitus with diabetic chronic kidney disease; I12.9 Hypertensive chronic kidney disease with stage 1 through stage 4 chronic kidney disease, or unspecified chronic kidney disease; M19.90 Unspecified osteoarthritis, unspecified site; N18.3 Chronic kidney disease, stage 3 (moderate); D63.1 Anemia in chronic kidney disease; E11.65 Type 2 diabetes mellitus with hyperglycemia; K31.7 Polyp of stomach and duodenum; K27.9 Peptic ulcer, site unspecified, unspecified as acute or chronic, without hemorrhage or perforation; I73.9 Peripheral vascular disease, unspecified; I25.10 Atherosclerotic heart disease of native coronary artery without angina pectoris; I25.2 Old myocardial infarction; Z90.81 Acquired absence of spleen; Z79.4 Long term (current) use of insulin; Z88.7 Allergy status to serum and vaccine
CPT/HCPCS: 36415; 36416; 36430; 71045; 80048; 80053; 82274; 82728; 83540; 83550; 84443; 84484; 85025; 85046; 85610; 85730; 86850; 86900; 86901; 93005; 93010; C9113; J0360; J1815; J2001; J2704; J3490; P9016

== ENCOUNTER 2019-08-15 10:58 | Inpatient (IN) | payer MEDICARE, MEDICAID ==
[2019-08-15 11:35] LABS: Hemoglobin 5.4 g/dL (14.0-18.0); INR-International Normal Ratio 1.1; Mean Corpuscular HGB CONC 32.1 g/dL (32.0-36.0); Mean Corpuscular Hemoglobin 29.5 pg (27.0-31.0); Mean Corpuscular Volume 92.1 fL (78.0-98.0); Mean Platelet Volume 7.3 fL (7.4-10.4); PTT 28.7 SEC (22.9-36.1); Platelet Count 541 thou/uL (130-400); Prothrombin Time 14.5 SEC (12.0-14.7); RBC Distribution Width 17.7 % (11.5-14.5); Red Blood Cell (RBC) Count 1.83 mill/uL (4.70-6.10); White Blood Cell (WBC) Count 17.2 thou/uL (4.8-10.8)
[2019-08-15 11:43] LABS: #Eosinphils 0.4 thou/uL (0.0-0.7); #Lymphocytes 3.2 thou/uL (1.20-3.40); #Monocytes 1.2 thou/uL (0.11-0.59); #Neutrophils 12.3 thou/uL (1.40-6.50); %Basophils 0.3 % (0.0-1.0); %Eosinophils 2.5 % (0.0-10.0); %Lymphocytes 18.8 % (21.0-51.0); %Monocytes 6.7 % (0.0-10.0); %Neutrophils 71.7 % (42.0-75.0)
[2019-08-15 11:45] LABS: Polychromasia MODERATE = 3-4 cells (100X) (0-2/hpf)
[2019-08-15 11:46] LABS: Ovalocytes SLIGHT = 2-5 cells (100X) (0-1/hpf)
[2019-08-15 11:50] LABS: ALT (SGPT) 7 U/L (8-55); AST (SGOT) 9 U/L (5-34); Albumin 2.9 g/dL (3.4-4.8); Alkaline Phosphatase 174 U/L (40-150); Anion Gap 12 mmol/L (10-20); BUN (Urea Nitrogen) 71 mg/dL (8.4-25.7); Bilirubin, Total Less than 0.2 mg/dL (0.2-1.2); Calc. Creatinine Clearance 0 mL/min (70-130); Carbon Dioxide 22 mmol/L (23-31); Chloride 107 mmol/L (98-107); Estimated GFR-MDRD 30; Globulin 2.3 g/dL (2.4-3.5); Glucose 264 mg/dL (83-110); Protein, Total 5.2 g/dL (5.8-8.1); Sodium 135 mmol/L (136-145)
[2019-08-15 12:22] LABS: Bilirubin Negative (Negative); Blood, Urine Negative (Negative); Clarity Clear (Clear); Glucose, Urine (Dipstick) 100 mg/dL (Negative); Leukocyte Negative Leu/uL (Negative); Nitrite Negative (Negative); Protein, Urine (Dipstick) 200 mg/dL (Neg-Trace); RBC/HPF 0-3 HPF (0-3); Squamous Epithelial 0-3 HPF (0-3); Urobilinogen Normal mg/dL (Less than 2)
[2019-08-15 12:28] LABS: Bacteria/HPF 2+ HPF (None Seen)
[2019-08-15] MEDS ORDERED: Fentanyl 100 MCG/2 ML VIAL ONE (13:06)
[2019-08-15] MEDS ORDERED: Nitroglycerin 2% Ointment 1 INCH/1 GM Packet ONE (13:29)
[2019-08-15] MEDS ORDERED: Pantoprazole 40 MG VIAL ONE (13:29)
[2019-08-15 13:59] LABS: Troponin I Less than 0.010 ng/mL (< 0.028)
[2019-08-15] MEDS ORDERED: Dextrose 5% in Water 1,000 ML IV PRN (15:31)
[2019-08-15] MEDS ORDERED: Dextrose 50% Abboject 50 ML SYRINGE SLOW IVP PRN (15:31)
[2019-08-15 16:06] LABS: Anion Gap 12 mmol/L (10-20); BUN (Urea Nitrogen) 72 mg/dL (8.4-25.7); Calc. Creatinine Clearance 0 mL/min (70-130); Calcium 7.6 mg/dL (7.8-10.44); Carbon Dioxide 18 mmol/L (23-31); Chloride 109 mmol/L (98-107); Estimated GFR-MDRD 32; Glucose 271 mg/dL (83-110); Potassium 6.3 mmol/L (3.5-5.1); Sodium 133 mmol/L (136-145)
[2019-08-15] MEDS ORDERED: Albuterol Sulfate 2.5 mg/3 ml Neb NEB SCH (17:15)
[2019-08-15] MEDS ORDERED: Calcium Gluconate 4.6 MEQ in Sodium Chloride 0.9% 100 ML IVPB SCH (17:15)
--- NOTE | 2019-08-15 18:08 | CON ---
DATE OF CONSULTATION: 08/15/2019 REASON FOR CONSULTATION: Recurrent GI bleeding. HISTORY OF PRESENT ILLNESS: Clinton Venegas is a 74-year-old man, well known to me from a couple of prior admissions. He was recently hospitalized here from 08/04 through 08/07 with recurrent upper GI bleeding. Briefly, he has a long history of iron deficiency anemia and underwent a prior workup at [facility], which showed unremarkable colonoscopy within the past few years, but gastric AVM with bleeding. He had been taking Plavix. He was here in April 2019. EGD was performed by Dr. Lawson. He was found to have a 1 cm ulcerated gastric polyp in the antrum, which was biopsied and turned out to be tubular adenoma, but also a large AVM in the proximal stomach with active bleeding and Dr. Lawson treated that extensively with BICAP cautery. The patient did well for a week or two afterward, but then became chronically fatigued. When he presented here a couple of weeks ago, he was having dyspnea on exertion and exertional angina and was found again to have severe anemia with hemoglobin of 5.2. He received blood transfusion. I performed EGD on admission, he actually had a significant amount of fresh blood and clots in the stomach. When these were evacuated, he was again found to have a large AVM in the proximal stomach with active oozing, I treated this area with argon plasma coagulation and I felt a good hemostasis was achieved. The patient's hemoglobin stabilized and he was able to be discharged on 08/07/2019 with hemoglobin up to 8.1. I had recommended that his Plavix be discontinued if at all possible and that he be on a twice daily PPI. He has been taking his pantoprazole twice daily, but reports that he continued on his Plavix. He says that he did well for a couple of days, but then for most of this past week, he has again been having dark and tarry stools. He has also had some nausea and several episodes of bloody emesis over the past week. He continues to have fatigue and exertional dyspnea and this worsened today prompting his presentation. He is hemodynamically stable, but his hemoglobin is again back down to 5.4. He is receiving another unit of RBC transfusion. He is back on a PPI drip. He is being admitted for further supportive care and workup. REVIEW OF SYSTEMS: Full review of systems including constitutional, head, eyes, ears, nose, throat, GI, , cardiovascular, respiratory, musculoskeletal, and neurologic systems are negative except as noted in the HPI. ALLERGIES: TETANUS TOXOID. OUTPATIENT MEDICATIONS: 1. Plavix 75 mg daily. 2. Pantoprazole 40 mg twice daily. 3. Januvia. 4. Losartan. 5. Isosorbide mononitrate. 6. Insulin. 7. Gemfibrozil. 8. Furosemide. 9. Ferrous sulfate. 10. Coreg. 11. Atorvastatin. FAMILY HISTORY: Noncontributory. SOCIAL HISTORY: No current tobacco, alcohol, or drug abuse. PAST MEDICAL HISTORY: Hypertension, COPD, diabetes type 2, chronic iron deficiency anemia, chronic kidney disease stage 3, osteoarthritis, GERD, peripheral arterial disease, myocardial infarction, gastric AVMs, status post cautery on 05/07/2019 and on 08/04/2019. Gastric tubular adenoma biopsied on 05/07/2019. Colonoscopy within the past few years and splenectomy. PHYSICAL EXAMINATION: VITAL SIGNS: Pulse is 83, blood pressure 129/73, and 98% oxygen saturation on room air. GENERAL: Elderly, frail, and pale 74-year-old man, lying in bed comfortably, in no acute distress. SKIN: He is pale. No jaundice. No rashes were palpable. He has a few tattoos. HEENT: Eyes, no scleral icterus. Extraocular movements intact. ENT, mucous membranes moist. No oral lesions. LYMPH: No submandibular or supraclavicular lymphadenopathy. THYROID: Nontender to palpation. HEART: Regular rate and rhythm. LUNGS: Clear to auscultation bilaterally. ABDOMEN: Bowel sounds present. Soft and nontender to palpation. EXTREMITIES: No peripheral edema. VESSELS: Radial pulses 2+ bilaterally. NEURO: Cranial nerves 2 through 12 intact bilaterally. No focal deficits. LABORATORY STUDIES: WBC 17.2, hemoglobin down to 5.4, was 8.1 on hospital discharge one week ago, hematocrit 16.9, and platelets 541. INR 1.1. Sodium 135, potassium 6.0, BUN 71, creatinine 2.17, and glucose 264. Ferritin 12.47 and iron 284. Troponin negative. Total bilirubin less than 0.2, alkaline phosphatase 174, AST 9, ALT 7, and albumin 2.9. Urinalysis shows 7 to 10 wbc's. ASSESSMENT AND PLAN: 1. Upper gastrointestinal bleeding, likely from his known gastric arterial venous malformation. 2. Acute on chronic blood loss anemia. The patient's presentation seems consistent with persistent subacute bleeding from this gastric arterial venous malformation. This is a significant lesion that has continued to have subacute bleeding despite prior treatment with BICAP cautery in April as well as argon plasma coagulation earlier this month. At this time, the patient is receiving RBC transfusion. I think he should probably have 2 units of RBCs. I agree with the pantoprazole drip. Note that, I had recommended Plavix be discontinued if at all possible, but the patient was continued on this after last hospital discharge. This should at least be held for now. Plan for resuscitation today and repeat upper endoscopy tomorrow. His known AVM may have to be re-treated, rule out other sources of blood loss. Further recommendations following endoscopy tomorrow. Please call anytime with questions or concerns if the patient has significant change in clinical status in the meantime. Job ID: [id number]
[2019-08-15 18:10] VITALS: BMI 22.4
[2019-08-15 19:30] LABS: Actual Bicarbonate (HCO3a) 19.1 mEq/L (22-28); Base Excess (BEa) -6.5 mEq/L (-2.0 to +3.0); Calcium, Ionized 1.13 mmol/L (1.12-1.30); Carboxyhemoglobin (COHb) 2.1 gm% (0.0-3.0); O2 Tension (PaO2) 68.4 mmHg (> 70.0); Potassium - ABG Lab 5.69 mmol/L (3.70-5.30); pH, Arterial 7.32 (7.35-7.45)
[2019-08-15 19:31] LABS: Puncture Site LRA
[2019-08-15] MEDS ORDERED: Furosemide 40 MG/4 ML VIAL SLOW IVP SCH (20:15)
[2019-08-15] MEDS: Sodium Chloride 0.9% 1,000 ML IV SCH (20:39)
[2019-08-15] MEDS: Benzonatate 100 MG CAP PO SCH (20:41)
[2019-08-15 20:55] LABS: Anion Gap 14 mmol/L (10-20); BUN (Urea Nitrogen) 78 mg/dL (8.4-25.7); Calc. Creatinine Clearance 28 mL/min (70-130); Calcium 7.9 mg/dL (7.8-10.44); Carbon Dioxide 18 mmol/L (23-31); Chloride 110 mmol/L (98-107); Estimated GFR-MDRD 30; Glucose 282 mg/dL (83-110); Sodium 136 mmol/L (136-145)
--- NOTE | 2019-08-15 22:46 | HP ---
CHIEF COMPLAINT: Melena and hematemesis. HISTORY OF PRESENT ILLNESS: The patient is a 74-year-old male with past medical history of coronary artery disease, status post stent x1, CKD, iron deficiency anemia and AV malformation, who presented to the hospital with melena and hematemesis. The patient stated that per records, the patient recently was discharged from the hospital 08/07 and during the hospitalization was treated for symptomatic anemia and hematemesis. He has a history of AV malformation. He did have an EGD done during his previous admission and revealed a large AVM 5 to 6 mm in the proximal gastric body with overlying blood clot. At this time, the blood clot was evacuated and also he was treated with argon plasma coagulation with good hemostasis. He also had a polyp; however, the polyp was not removed in his gastric fundus due to the concerns for bleeding. He was put on PPI and then was discharged home. The patient states that when he got home, he was doing fine until Wednesday. The patient stated that on Wednesday, he started feeling nauseous and had several amounts of hematemesis and also has been having some dark stools. The patient stated that he did not have a ride so he did not come into the hospital and he could not drive himself. The patient stated that today he called his partner, who drove him to the hospital. PAST MEDICAL HISTORY: 1. He has a history of CAD, status post stent x1. He does have a history of COPD. 2. Diabetes. 3. Chronic anemia. 4. CKD. 5. AV malformation. 6. Reflux. 7. Peripheral artery disease. SURGICAL HISTORY: EGD, colonoscopy, cardiac catheterization with stent placement, splenectomy, and neck surgery. SOCIAL HISTORY: He denies any tobacco use, alcohol use, or recreational drug use. When I asked him about code status, the patient stated that he had signed some paperwork a couple of hospitalizations prior and his partner would be the one making decisions for him. He did not want to answer my resuscitation questions. FAMILY HISTORY: He denied any history of premature coronary artery disease. ALLERGIES: ALLERGIC TO TETANUS TOXOID. HOME MEDICATIONS: Are as of the following. He is on; 1. Atorvastatin. 2. Lasix. 3. Plavix. 4. Losartan. 5. Isosorbide. 6. Coreg. 7. Iron sulfate. 8. Pantoprazole. REVIEW OF SYSTEMS: All negative except for the ones mentioned above in the HPI. PHYSICAL EXAMINATION: VITAL SIGNS: Are as of the following; his temperature is 98.0, respirations are 20, O2 saturation 96% on room air, blood pressure 119/45, pulse of 81. GENERAL: He is awake, alert, and oriented x3. Appears pale. HEENT: Normocephalic, atraumatic. No lymphadenopathy noted. He does have conjunctivae pale. CV: S1 and S2 present. No murmurs, rubs, or gallops. LUNGS: Has mild expiratory wheezing. ABDOMEN: Soft. Bowel sounds are present x2. He has pain upon palpation around his epigastric area. EXTREMITIES: No edema. Pedal pulses are present x2. NEUROVASCULAR: No focal deficits noted. SKIN: He has some few bruises; however, otherwise pretty intact. LABORATORY RESULTS: As of the following; WBCs of 17.2, hemoglobin of 5.4, hematocrit of 16.9, his platelets are 541. Chemistry; sodium of 133, potassium of 6.3, BUN of 72, creatinine of 2.02, and calcium of 7.6. Troponin x1 is negative. His urine appears to be stable. White cells are 7 to 10. He does have some protein and some glucose. He did have an EKG; however, did not look like he had significant changes. ASSESSMENT AND PLAN: The patient is a 74-year-old male, who presents to the hospital with complaints of hematemesis and melena. 1. Acute on chronic blood loss, most likely secondary to his arteriovenous malformations. He is supposed to be transfused 2 units of blood. I will admit him to the CCU for closer monitoring. GI has been consulted. We will continue to monitor. 2. Gastrointestinal bleed, most likely secondary due to arteriovenous malformation. We will again consult Gastroenterology. Continue to monitor. 3. Hyperkalemia. I have rechecked his potassium and it is still high. I will give him calcium gluconate and give him hyperkalemia protocol medication including high-dose albuterol. Also, I will hold his losartan since he has been taking all his medications. 4. Coronary artery disease. The patient has been taking Plavix. We will hold that for now given his recent bleed. 5. Leukocytosis. I believe this is reactive. We will continue to monitor. 6. Deep venous thrombosis prophylaxis. We will put the patient on some SCDs. 7. Acute kidney injury. We will continue with IV hydration and also blood, which will probably improve his creatinine probably in the morning. Of note, the patient in the ER did have chest pain that was sharp in nature. He was given some nitroglycerin, which decreased his blood pressure and then he was given some IV hydration. However, the patient's blood pressure currently has much improved. I believe his chest pain is most likely secondary to his anemia. We will continue to monitor him slowly. Job ID: [id number]
--- NOTE | 2019-08-15 23:09 | CON ---
DATE OF CONSULTATION: HISTORY OF PRESENT ILLNESS: Clinton Venegas is a 74-year-old male who was admitted with third time of GI bleed secondary to gastric AVM. It is anticipated he will have endoscopy again with an attempt to cauterize this. It is felt by the dielectric embossing machine operator that this surgery would be a huge undertaking for Mr. Venegas and Mr. Venegas is adamant that he never have any intubation over that necessary for procedure and is also adamant that he be a DNR. I have entered this order in the computer. He presented today with a hemoglobin of 5.4. I was consulted tonight by the nurses in the ICU because of his potassium and his hemoglobin. He received a unit of blood in the emergency department. PAST MEDICAL HISTORY: Remarkable for hypertension, COPD, diabetes, chronic kidney disease, osteoarthritis, reflux disease, peripheral vascular disease, history of multiple coronary stents, history of a gastric tubular adenoma and history of splenectomy. FAMILY HISTORY: Negative for lung disease in early age. SOCIAL HISTORY: He is a nonsmoker, nondrug user, nondrinker. MEDICATIONS: Prior to admission, he is on 1. Plavix. 2. Protonix. 3. Januvia. 4. Losartan. 5. ISMO. 6. Insulin. 7. Gemfibrozil. 8. Lasix. 9. Iron. 10. Coreg. 11. Atorvastatin. PHYSICAL EXAMINATION: GENERAL: He is in no distress when I saw him. VITAL SIGNS: He is afebrile. Respiratory rate is 18 to 22, blood pressure 154/68. He declines to take his pants off for the nurses. HEAD AND NECK: Unremarkable. LUNGS: Clear. HEART: Regular rhythm. S1 and S2 are normal. ABDOMEN: Soft and nontender. EXTREMITIES: Without clubbing, cyanosis, or edema. He is coughing, but says he has been coughing for some time. He is also complaining of sinus drainage. LABORATORY DATA: White count 17.2, hemoglobin 5.4, platelets 541. Sodium 136, potassium is 6, chloride 110, bicarb 18, BUN 78, creatinine 2.18. IMPRESSION: 1. Acute on chronic gastrointestinal blood loss. 2. Chronic kidney disease. 3. Hyperkalemia. I have ordered Kayexalate ordered. I have 2 more units of blood and he will receive Lasix between the units of blood. Lab will be repeated in the morning. He appears hemodynamically stable at this time. TIME SPENT: This 70 minute consult, 50% of the time was spent on the unit coordinating care. Job ID: [id number]
[2019-08-16 04:55] LABS: Anion Gap 14 mmol/L (10-20); BUN (Urea Nitrogen) 71 mg/dL (8.4-25.7); Calc. Creatinine Clearance 33 mL/min (70-130); Calcium 8.1 mg/dL (7.8-10.44); Carbon Dioxide 20 mmol/L (23-31); Chloride 111 mmol/L (98-107); Estimated GFR-MDRD 35; Glucose 207 mg/dL (83-110); Potassium 4.6 mmol/L (3.5-5.1); Sodium 140 mmol/L (136-145)
[2019-08-16 05:21] LABS: Band 2 % (5-11); Eosinophils 4 % (0-10); Hemoglobin 8.7 g/dL (14.0-18.0); Lymphocytes 18 % (21-51); MDiff Complete? YES; Mean Corpuscular HGB CONC 33.4 g/dL (32.0-36.0); Mean Corpuscular Hemoglobin 30.9 pg (27.0-31.0); Mean Corpuscular Volume 92.5 fL (78.0-98.0); Mean Platelet Volume 7.4 fL (7.4-10.4); Monocytes 5 % (0-10); Neutrophil 70 % (42-75); Platelet Count 421 thou/uL (130-400); RBC Distribution Width 15.5 % (11.5-14.5); Red Blood Cell (RBC) Count 2.81 mill/uL (4.70-6.10); White Blood Cell (WBC) Count 13.6 thou/uL (4.8-10.8)
[2019-08-16] MEDS: Sodium Chloride 0.9% 1,000 ML IV SCH ×4 (05:54→20:19)
--- NOTE | 2019-08-16 08:01 | RAD ---
CHEST 1 VIEW: Date: 08/16/19 INDICATION: Cough. COMPARISON: Prior exam dated 08/04/19. FINDINGS: Chronic lung changes are stable. Mild cardiomegaly is stable. Vascular calcifications are similar ishaan earing. No acute osseous abnormality is evident. IMPRESSION: No acute abnormality. POS: BH
[2019-08-16] MEDS: Benzonatate 100 MG CAP PO SCH ×3 (08:48→20:19)
[2019-08-16] MEDS ORDERED: Lidocaine 1% PF 5 ML VIAL ONE (09:36)
[2019-08-16] MEDS ORDERED: PROPOFOL 200 MG/20 ML VIAL ONE (09:36)
--- NOTE | 2019-08-16 14:52 | PRG ---
DATE OF SERVICE: 08/16/2019 SUBJECTIVE: Clinton Venegas is stable. He finally agreed to take his pants off after he started having frequent bowel movements. OBJECTIVE: VITAL SIGNS: Afebrile. Heart rate blood pressure HEART: Regular. ABDOMEN: Soft. LABORATORY DATA: Hemoglobin is 8.7 this morning, platelets are 421,000. Sodium 140, potassium 4.6, chloride 111, bicarb 20, BUN 71 and creatinine 1.87. IMPRESSION: 1. Gastrointestinal blood loss, most likely from stomach. He is undergoing esophagogastroduodenoscopy today. 2. Hyperkalemia secondary to vascular volume depletion on top of underlying chronic kidney disease. 3. Acute on chronic kidney disease that has improved with transfused volume. 4. Chest x-ray was reviewed today and shows no infiltrates. 5. Cough is most likely related to sinus drainage. 6. We will follow. Job ID: [id number]
[2019-08-16] MEDS ORDERED: Promethazine HCl 25 MG/ML VIAL SLOW IVP PRN (15:35)
[2019-08-16] MEDS ORDERED: Ondansetron HCl/PF 4 MG/2 ML Vial IVP PRN (15:35)
[2019-08-16] MEDS ORDERED: Promethazine HCl 25 MG/ML VIAL IM PRN (15:35)
--- NOTE | 2019-08-16 16:15 | PDOC.HOSPP ---
- Subjective Encounter Date: 08/16/19 Encounter Time: 11:30 Subjective: pt up in bed no complains - Objective Vital Signs & Weight: Vital Signs (12 hours) Temp Pulse Ox 08/16/19 12:00 98.6 F 08/16/19 07:18 98 08/16/19 07:00 98.7 F Weight Admit Weight 151 lb Weight 151 lb 14.376 oz Most Recent Monitor Data Heart Rate from ECG 88 NIBP 145/64 NIBP BP-Mean 91 Respiration from ECG 18 SpO2 98 I&O: 08/15/19 08/16/19 08/17/19 06:59 06:59 06:59 Intake Total 1446 0 Output Total 800 935 Balance 646 -935 Result Diagrams: 08/16/19 04:09 08/16/19 04:09 Hospitalist ROS - Review of Systems Cardiovascular: denies: chest pain, palpitations, orthopnea, paroxysmal noc. dyspnea, edema, light headedness, other Gastrointestinal: denies: nausea, vomiting, abdominal pain, diarrhea, constipation, melena, hematochezia, other Genitourinary: denies: dysuria, frequency, incontinence, hematuria, retention, other - Medication Medications: Active Medications Generic Name Dose Route Start Last Admin Trade Name Freq PRN Reason Stop Dose Admin Benzonatate 200 mg 08/15/19 21:00 08/16/19 08:48 Tessalon PO 200 mg TID IZAIAH Administration Sodium Chloride 1,000 mls @ 125 mls/hr 08/15/19 20:00 08/16/19 08:28 Normal Saline 0.9% IV 1,000 mls .Q8H IZAIAH Administration - Exam Neck: negative: supple, symmetric, no JVD, no thyromegaly, no lymphadenopathy, no carotid bruit, JVD Heart: negative: RRR, no murmur, no gallops, no rubs, normal peripheral pulses, irregular, diminshed peripheral pulses, murmur present, II/IV, III/IV Respiratory: negative: CTAB, no wheezes, no rales, no ronchi, normal chest expansion, no tachypnea, normal percussion, rales, rhonchi, tachypneic, wheezes Hosp A/P (1) Anemia due to acute blood loss Code(s): D62 - ACUTE POSTHEMORRHAGIC ANEMIA Status: Acute (2) CAD (coronary artery disease) Code(s): I25.10 - ATHSCL HEART DISEASE OF [place] CORONARY ARTERY W/O ANG PCTRS Status: Acute (3) GI bleed Code(s): K92.2 - GASTROINTESTINAL HEMORRHAGE, UNSPECIFIED Status: Acute (4) Gastric AVM Code(s): K31.819 - ANGIODYSPLASIA OF STOMACH AND DUODENUM WITHOUT BLEEDING Status: Acute (5) Hyperglycemia due to type 2 diabetes mellitus Code(s): E11.65 - TYPE 2 DIABETES MELLITUS WITH HYPERGLYCEMIA Status: Acute (6) CKD (chronic kidney disease) stage 3, GFR 30-59 ml/min Code(s): N18.3 - CHRONIC KIDNEY DISEASE, STAGE 3 (MODERATE) Status: Chronic - Plan will continue the ppi, pt to undergo egd hh is stable. s/p 3units of prbc
[2019-08-16] MEDS: Ipratropium Bromide 0.06% Nasal Inhaler 15ml NASAL SCH ×2 (16:16→20:20)
[2019-08-16] MEDS ORDERED: Dextrose 5% in Water 1,000 ML IV PRN (17:04)
[2019-08-16] MEDS ORDERED: Dextrose 50% Abboject 50 ML SYRINGE SLOW IVP PRN (17:04)
[2019-08-16] MEDS: HumaLOG 300 UNITS/3 ML VIAL SC PRN ×2 (17:19→20:18)
[2019-08-16] MEDS: Acetaminophen 325 MG TAB PO PRN (18:06)
[2019-08-17] MEDS: Sodium Chloride 0.9% 1,000 ML IV SCH ×3 (00:30→20:14)
[2019-08-17] MEDS: Nitroglycerin 0.4 MG TAB (25 Tab Bottle) SL PRN ×7 (02:33→20:14)
[2019-08-17 03:09] LABS: Mean Corpuscular HGB CONC 34.3 g/dL (32.0-36.0); Mean Corpuscular Volume 93.2 fL (78.0-98.0); Mean Platelet Volume 7.4 fL (7.4-10.4); Platelet Count 311 thou/uL (130-400); RBC Distribution Width 16.4 % (11.5-14.5); Red Blood Cell (RBC) Count 1.57 mill/uL (4.70-6.10); White Blood Cell (WBC) Count 8.4 thou/uL (4.8-10.8)
[2019-08-17 03:21] LABS: Magnesium 1.4 mg/dL (1.6-2.6); Potassium 4.8 mmol/L (3.5-5.1)
--- NOTE | 2019-08-17 03:21 | PDOC.EVN ---
Event Note - Event Note Event Note: Notified by RN, patient with chest pain, 8/10, central and radiating to left arm /neck. Lasted 15 min, eased on its own. Nitro stat ordered, given. BP 140s systolic. HR normal. EKG done stat showed normal sinus. No ST changes/T wave abnormalities. Troponin to be trended, also repeated H/H and electrolytes. Patient s/p PRBCs with initial Hgb of 5.4, improved to 8. ADDENDUM: Patient pain free, resting comfortably. Lab indicated hgb critically low at 5. Will transfuse with additional 2 units of PRBCs. Remains hemodynamically normal. Seen by Dr. Wagner who advised Pantroprazole drip, I have ordered it. Dr. Bowles updated and aware.
[2019-08-17 03:25] LABS: Eosinophils 9 % (0-10); Lymphocytes 24 % (21-51); MDiff Complete? YES; Neutrophil 67 % (42-75); Nucleated RBC 1 % (0)
[2019-08-17] MEDS ORDERED: Magnesium 2 GM/50 ML 2 GM in Premix Bag 1 BAG IVPB SCH (04:00)
[2019-08-17] MEDS: Pantoprazole 80 MG, Admixture Fee 1 EACH in Sodium Chloride 0.9% 100 ML IVPB SCH (04:05)
[2019-08-17] MEDS: Acetaminophen 325 MG TAB PO PRN ×2 (04:12→22:31)
[2019-08-17] MEDS: Benzonatate 100 MG CAP PO SCH ×3 (08:10→20:15)
[2019-08-17] MEDS: Ipratropium Bromide 0.06% Nasal Inhaler 15ml NASAL SCH ×2 (08:11→20:25)
--- NOTE | 2019-08-17 09:14 | OP ---
DATE OF PROCEDURE: 08/16/2019 PROCEDURES PERFORMED: Esophagogastroduodenoscopy with extensive irrigation of the stomach with saline and also suctioning and removal of blood clots. PREOPERATIVE DIAGNOSES: 1. Acute GI bleeding. 2. History of AV malformation, status post BICAP probe in April [address] Angel Luis Wagner a week ago. 3. The patient presents with GI bleeding, hematemesis, and also melena. POSTOPERATIVE DIAGNOSES: 1. Hiatal hernia. 2. Normal esophageal mucosa with normal GE junction. 3. Large amount of blood clots, old in the proximal stomach, greater curvature, and fundus. 4. Large amount of dark coffee-ground material coating of gastric mucosa without any sign of active bleeding. The procedure time was almost an hour and 15 minutes. At the time of endoscopy, no active bleeding was seen. DESCRIPTION OF PROCEDURE: The patient was placed on his left lateral position and was given sedation by Anesthesia Department. A Pentax video gastroscope under direct vision passed down the oropharynx, past the GE junction into the stomach. The esophageal mucosa appeared normal. The GE junction had no pathology. He has had hiatus hernia. The stomach showed large amount of coffee-ground material coating of mucosa. There were large number of blood clots occupied in the fundus under direct vision. _The gastric body, gastric antrum, duodenal bulb, and descending duodenum, no active bleeding seen. The patient had a gastric polyp over the gastric antrum, which was biopsied. There was also some mucus polypoid lesion over the greater curvature of the gastric body. Multiple passes were made to try to remove the blood clots. Finally blood clots removed using a power suction and also used scope to bring it out. the clots_and removed multiple times. The stomach was almost closely 90% emptied out. Only large blood clot into the fundus, could not be removed. We examined back and forth several times and I could not really see any bleeding AVM, even the previously cauterized spot. Subsequently terminated the procedure because of no active bleeding. RECOMMENDATIONS: 1. Clear liquid diet. 2. Follow his H and H. 3. Possible second-look EGD in the next 24 to 48 hours. Job ID: [id number] [facility]ENTER[facility]i
--- NOTE | 2019-08-17 11:11 | PDOC.HOSPP ---
- Subjective Encounter Date: 08/17/19 Encounter Time: 10:00 Subjective: pt having chest pain some ekg changes, he was given nitro. His hh is low 5. He underwent egd yest without any intervention. NO chest pain currently. - Objective Vital Signs & Weight: Vital Signs (12 hours) Temp Pulse Pulse Resp BP BP BP 08/17/19 10:09 97.8 F 91 17 111/57 L 08/17/19 08:00 08/17/19 07:27 98.2 F 91 16 168/83 H 08/17/19 04:55 98.2 F 83 20 132/53 L 08/17/19 02:07 98.1 F 88 18 146/60 H 08/17/19 00:00 98.2 F 92 18 143/56 H Pulse Ox 08/17/19 10:09 08/17/19 08:00 96 08/17/19 07:27 96 08/17/19 04:55 96 08/17/19 02:07 95 08/17/19 00:00 95 Weight Admit Weight 151 lb Weight 151 lb 14.376 oz Most Recent Monitor Data Heart Rate from ECG 88 NIBP 145/64 NIBP BP-Mean 91 Respiration from ECG 18 SpO2 98 I&O: 08/16/19 08/17/19 08/18/19 06:59 06:59 06:59 Intake Total 1446 1600 0 Output Total 800 935 Balance 646 665 0 Result Diagrams: 08/17/19 02:41 08/17/19 02:41 Additional Labs: Accuchecks 08/17/19 08/16/19 08/16/19 04:45 19:24 17:04 POC Glucose 241 H 388 H 279 H Hospitalist ROS - Review of Systems Cardiovascular: denies: chest pain, palpitations, orthopnea, paroxysmal noc. dyspnea, edema, light headedness, other Gastrointestinal: denies: nausea, vomiting, abdominal pain, diarrhea, constipation, melena, hematochezia, other - Medication Medications: Active Medications Generic Name Dose Route Start Last Admin Trade Name Freq PRN Reason Stop Dose Admin Acetaminophen 650 mg 08/15/19 15:15 08/17/19 04:12 Tylenol PO 650 mg Q4H PRN Administration Headache/Fever/Mild Pain (1-3) Benzonatate 200 mg 08/15/19 21:00 08/17/19 08:10 Tessalon PO Not Given TID IZAIAH Sodium Chloride 1,000 mls @ 125 mls/hr 08/15/19 20:00 08/17/19 00:30 Normal Saline 0.9% IV 1,000 mls .Q8H IZAIAH Administration Pantoprazole Sodium 80 mg/ 100 mls @ 10 mls/hr 08/17/19 03:30 08/17/19 04:05 Miscellaneous Medication 1 IVPB 100 mls each/ Sodium Chloride INF IZAIAH Administration Insulin Human Lispro 0 units 08/15/19 15:31 08/16/19 20:18 Humalog SC 6 unit .MILD SLIDING SCALE PRN Administration Mild Correctional Scale Ipratropium Goldve[place] 0 ml 08/16/19 09:00 08/17/19 08:11 Atrovent 0.06% Nasal Inhaler NASAL Not Given BID IZAIAH Nitroglycerin 0.4 mg 08/17/19 02:18 08/17/19 09:13 Nitrostat SL 0.4 mg PRN PRN Administration Chest Pain - Exam General - other findings: pt appears pale Neck: negative: supple, symmetric, no JVD, no thyromegaly, no lymphadenopathy, no carotid bruit, JVD Heart: negative: RRR, no murmur, no gallops, no rubs, normal peripheral pulses, irregular, diminshed peripheral pulses, murmur present, II/IV, III/IV Respiratory - other findings: mild rales to bilateral lung bases Hosp A/P (1) Anemia due to acute blood loss Code(s): D62 - ACUTE POSTHEMORRHAGIC ANEMIA Status: Acute (2) CAD (coronary artery disease) Code(s): I25.10 - ATHSCL HEART DISEASE OF [place] CORONARY ARTERY W/O ANG PCTRS Status: Acute (3) GI bleed Code(s): K92.2 - GASTROINTESTINAL HEMORRHAGE, UNSPECIFIED Status: Acute (4) Gastric AVM Code(s): K31.819 - ANGIODYSPLASIA OF STOMACH AND DUODENUM WITHOUT BLEEDING Status: Acute (5) Hyperglycemia due to type 2 diabetes mellitus Code(s): E11.65 - TYPE 2 DIABETES MELLITUS WITH HYPERGLYCEMIA Status: Acute (6) CKD (chronic kidney disease) stage 3, GFR 30-59 ml/min Code(s): N18.3 - CHRONIC KIDNEY DISEASE, STAGE 3 (MODERATE) Status: Chronic - Plan will continue the ppi, pt to undergo egd hh is stable. s/p 3units of prbc 08/17 pt's hh is low, will give pt 3 units of blood. spoke with gi will place him npo for egd today.
[2019-08-17] MEDS ORDERED: Fentanyl 100 MCG/2 ML VIAL ONE (11:59)
[2019-08-17] MEDS ORDERED: PROPOFOL 200 MG/20 ML VIAL ONE (12:52)
[2019-08-17] MEDS ORDERED: Lidocaine 1% PF 5 ML VIAL ONE (12:52)
[2019-08-17] MEDS ORDERED: Dexamethasone 20 MG/5 ML VIAL ONE (12:52)
[2019-08-17] MEDS ORDERED: Rocuronium Bromide 10 MG/ML (10ML VIAL) ONE (12:52)
[2019-08-17] MEDS ORDERED: Ondansetron PF 4 MG/2 ML Vial ONE (12:52)
[2019-08-17] MEDS ORDERED: PHENYLEPHRINE-NS 100 MCG/ML 10 ML SYRINGE ONE (12:52)
[2019-08-17] MEDS ORDERED: Glycopyrrolate 0.2 MG/ML 5 ML SYRINGE ONE (12:52)
[2019-08-17] MEDS ORDERED: Promethazine HCl 25 MG/ML VIAL IM PRN (13:00)
[2019-08-17] MEDS ORDERED: Morphine Sulfate 2 MG/ML SYRINGE SLOW IVP PRN (13:00)
[2019-08-17] MEDS ORDERED: Promethazine HCl 25 MG/ML VIAL SLOW IVP PRN (13:00)
[2019-08-17] MEDS ORDERED: Ondansetron HCl/PF 4 MG/2 ML Vial IVP PRN (13:00)
--- NOTE | 2019-08-17 15:44 | PRG ---
DATE OF SERVICE: 08/17/2019 SUBJECTIVE: Mr. Venegas has stable vital signs. His hemoglobin was noted to be 5 g this morning. He is downstairs for repeat endoscopy. Endoscopy yesterday with Dr. Lawson showed large amounts of blood clots in the proximal stomach. No active bleeding was seen. It is unclear what was found today. He was transfused this morning. Since he is hemodynamically stable and this is primarily GI bleeding problem, we will sign off unless he is transferred back in the critical care environment. Job ID: [id number]
[2019-08-17] MEDS: HumaLOG 300 UNITS/3 ML VIAL SC PRN ×2 (16:38→20:28)
[2019-08-17 18:12] LABS: Hemoglobin 8.5 g/dL (14.0-18.0)
[2019-08-17] MEDS ORDERED: hydrALAZINE 20 MG/ML VIAL SLOW IVP PRN (19:55)
[2019-08-17] MEDS ORDERED: Lidocaine 2% Viscous Solution 10 ML, Aluminum & Magnesium Hydroxide 30 ML SSW SCH (20:00)
[2019-08-17 20:06] LABS: Hemoglobin 7.9 g/dL (14.0-18.0)
--- NOTE | 2019-08-17 20:08 | OP ---
DATE OF PROCEDURE: 08/17/2019 PROCEDURE PERFORMED: Esophagogastroduodenoscopy with control of hemorrhage. INDICATIONS FOR PROCEDURE: Melena, history of gastric arteriovenous malformation. DESCRIPTION OF PROCEDURE: After the risks and benefits of the procedure were explained to the patient including the risks of bleeding, infection, perforation, reactions to anesthesia, aspiration, and/or pain, informed consent was obtained. The patient was then taken to the endoscopy suite, where general anesthesia was administered with intubation via Anesthesia support. Once the patient was sedated and intubated, he was maneuvered into the left lateral decubitus position in preparation for the procedure. The therapeutic gastroscope was then introduced into the mouth with intubation of the esophagus, stomach, and the proximal small intestines with the findings listed below. The patient tolerated the procedure well with no immediate perioperative complications. Upon conclusion of the procedure, all equipment was removed from the patient, and he was transferred to PACU in satisfactory condition. FINDINGS: Esophagus: Normal-appearing mucosa was seen in the proximal, mid, and distal esophagus. There was no evidence of erosions, ulcerations, mass, lesions, or active/recent bleeding. There was a mild narrowing at the GE junction concerning for an esophageal stricture, but was easily traversed with the therapeutic gastroscope. No intervention was taken on this at this time given lack of dysphagia symptoms. Stomach: Normal-appearing mucosa was seen in the gastric cardia, body, greater curvature, antrum, and incisura. There were scattered very small brown/black blood clots seen throughout the stomach, but did not yield any underlying pathology; however, a 2 to 3 mm ulceration was seen in the gastric fundus that did exhibit a small overlying blood clot in addition to a red spot consistent with high-risk stigmata of recent bleeding. The area around the ulceration was then injected with epinephrine (1:10,000 dilution) in preparation for cauterization using a 7-Romansh bipolar cautery probe. The ulcer was then cauterized with good hemostasis achieved, although it did exhibit increased bleeding upon initial manipulation with the bipolar cautery probe. No bleeding was seen at the end of the maneuver. A small 1 to 2 mm arteriovenous malformation was also seen in the gastric fundus 2 to 3 cm away from the ulceration that exhibited oozing of blood during the procedure. This was intervened upon with the 7-Romansh bipolar cautery probe with good hemostasis achieved there as well. There was also a 1 cm antral polyp seen that was previously described on prior endoscopies. It remained unchanged in terms of location or appearance. Intervention was not taken on this polyp due to increased risk of bleeding. Duodenum: Normal-appearing mucosa was seen in both the duodenal bulb and second portion of the duodenum. There was no evidence of erosions, ulcerations, mass, lesions, or active/recent bleeding. IMPRESSION: 1. A 3 to 4 mm gastric fundus ulceration with overlying clot and red spot consistent with high-risk stigmata of recent bleeding, now status post epinephrine injection in 4 quadrant fashion and bipolar cauterization with good hemostasis achieved. 2. A 1 to 2 mm arteriovenous malformation exhibiting mild oozing of blood, status post bipolar cauterization with good hemostasis. 3. A 1 cm gastric antral polyp (stable in appearance). RECOMMENDATIONS: 1. We would continue to trend his H and H and transfuse as necessary to maintain an H and H of 7/21. 2. Continue to monitor clinically for signs of active GI bleeding. 3. We can place the patient on a clear liquid diet today, but we would cautiously advance his diet over the next 48 hours given his episodes of bleeding in the past. 4. We would avoid any NSAIDs during this hospitalization. 5. We would continue PPI drip for total duration of 24 hours, then transfer the patient to pantoprazole 40 mg b.i.d. 6. We will continue to follow. Please call with any questions. Job ID: [id number]
[2019-08-17] MEDS: Carvedilol 6.25 MG TAB PO SCH (20:15)
--- NOTE | 2019-08-17 20:54 | RAD ---
EXAM: Single view of the chest HISTORY: Chest pain COMPARISON: 08/16/2019 FINDINGS: Single view of the chest shows a normal sized cardiomediastinal silhouette. Atheroscleroti c calcifications are seen in the aorta. There is no evidence of consolidation, mass, or pleural effusion. Degenerative changes are seen in the spine. IMPRESSION: No evidence of acute cardiopulmonary disease
--- NOTE | 2019-08-17 20:55 | RAD ---
EXAM: Single view of the abdomen HISTORY: Abdominal distention and pain COMPARISON: None FINDINGS: Single view of the abdomen shows a nonspecific, nonobstructive bowel gas pattern. No suspi cious calcifications are seen. The bones are unremarkable. Wire sutures project over the midline of the abdomen. Vascular stents are seen just distal to the aortic bifurcation. IMPRESSION: Nonobstructive bowel gas pattern.
[2019-08-17] MEDS ORDERED: Simethicone Chewable 80 MG TAB PO PRN (21:19)
[2019-08-17 21:33] LABS: ALT (SGPT) Less than 7 U/L (8-55); AST (SGOT) 11 U/L (5-34); Albumin 2.5 g/dL (3.4-4.8); Alkaline Phosphatase 135 U/L (40-150); Anion Gap 10 mmol/L (10-20); BUN (Urea Nitrogen) 69 mg/dL (8.4-25.7); Bilirubin, Total Less than 0.2 mg/dL (0.2-1.2); Calc. Creatinine Clearance 37 mL/min (70-130); Calcium 7.5 mg/dL (7.8-10.44); Carbon Dioxide 17 mmol/L (23-31); Chloride 109 mmol/L (98-107); Estimated GFR-MDRD 41; Globulin 1.8 g/dL (2.4-3.5); Glucose 490 mg/dL (83-110); Lipase 37 U/L (8-78); Magnesium 1.8 mg/dL (1.6-2.6); Potassium 5.1 mmol/L (3.5-5.1); Protein, Total 4.3 g/dL (5.8-8.1); Sodium 131 mmol/L (136-145)
[2019-08-17 23:56] LABS: Hemoglobin 7.1 g/dL (14.0-18.0)
[2019-08-18] MEDS ORDERED: Aluminum & Magnesium Hydroxide 60 ML, Lidocaine 2% Viscous Solution 30 ML, diphenhydrAM... SSW PRN (00:12)
[2019-08-18] MEDS ORDERED: Morphine 2 MG/ML SYRINGE SLOW IVP PRN (00:15)
[2019-08-18] MEDS: Sodium Chloride 0.9% 1,000 ML IV SCH (00:41)
[2019-08-18] MEDS: Pantoprazole 80 MG, Admixture Fee 1 EACH in Sodium Chloride 0.9% 100 ML IVPB SCH (03:32)
[2019-08-18] MEDS: HumaLOG 300 UNITS/3 ML VIAL SC PRN ×3 (05:05→20:07)
[2019-08-18 06:21] LABS: Band 5 % (5-11); Hemoglobin 8.8 g/dL (14.0-18.0); Lymphocytes 14 % (21-51); MDiff Complete? YES; Mean Corpuscular HGB CONC 34.5 g/dL (32.0-36.0); Mean Corpuscular Hemoglobin 31.7 pg (27.0-31.0); Mean Corpuscular Volume 92.1 fL (78.0-98.0); Mean Platelet Volume 7.2 fL (7.4-10.4); Metamyelocyte 1 % (0-0); Monocytes 2 % (0-10); Neutrophil 78 % (42-75); Platelet Count 319 thou/uL (130-400); Platelet Morphology Comment Appears Adequate; RBC Distribution Width 14.2 % (11.5-14.5); Red Blood Cell (RBC) Count 2.78 mill/uL (4.70-6.10); White Blood Cell (WBC) Count 11.3 thou/uL (4.8-10.8)
[2019-08-18] MEDS: Amlodipine 10 MG TAB PO SCH (08:30)
[2019-08-18] MEDS: Losartan 25 MG TAB PO SCH (08:30)
[2019-08-18] MEDS: Carvedilol 6.25 MG TAB PO SCH ×2 (08:32→20:04)
[2019-08-18] MEDS: Isosorbide Mononitrate (ER) 30 MG TAB PO SCH (08:32)
[2019-08-18] MEDS: Benzonatate 100 MG CAP PO SCH ×3 (08:32→20:06)
[2019-08-18] MEDS: Ipratropium Bromide 0.06% Nasal Inhaler 15ml NASAL SCH ×2 (08:33→20:05)
--- NOTE | 2019-08-18 12:15 | PDOC.HOSPP ---
- Subjective Encounter Date: 08/18/19 Encounter Time: 10:48 Subjective: pt up in bed feels better today - Objective Vital Signs & Weight: Vital Signs (12 hours) Temp Pulse Pulse Resp BP BP BP 08/18/19 08:32 177/68 H 08/18/19 08:30 87 177/68 H 08/18/19 08:00 08/18/19 07:28 97.7 F 87 16 177/68 H 08/18/19 04:45 97.4 F L 80 17 163/65 H 08/18/19 01:50 98.0 F 88 19 153/55 H 08/18/19 01:35 98.1 F 82 18 150/60 H Pulse Ox 08/18/19 08:32 08/18/19 08:30 08/18/19 08:00 97 08/18/19 07:28 97 08/18/19 04:45 96 08/18/19 01:50 96 08/18/19 01:35 96 Weight Admit Weight 151 lb Weight 151 lb 14.376 oz Most Recent Monitor Data Heart Rate from ECG 88 NIBP 145/64 NIBP BP-Mean 91 Respiration from ECG 18 SpO2 98 I&O: 08/17/19 08/18/19 08/19/19 06:59 06:59 06:59 Intake Total 1600 1500 Output Total 935 Balance 665 1500 Result Diagrams: 08/18/19 05:55 08/17/19 20:37 Additional Labs: Accuchecks 08/18/19 08/18/19 08/17/19 11:06 04:51 19:29 POC Glucose 271 H 377 H 476 H 08/17/19 16:33 POC Glucose 375 H Hospitalist ROS - Review of Systems Respiratory: denies: cough, dry, shortness of breath, hemoptysis, SOB with excertion, pleuritic pain, sputum, wheezing, other Cardiovascular: denies: chest pain, palpitations, orthopnea, paroxysmal noc. dyspnea, edema, light headedness, other Gastrointestinal: denies: nausea, vomiting, abdominal pain, diarrhea, constipation, melena, hematochezia, other - Medication Medications: Active Medications Generic Name Dose Route Start Last Admin Trade Name Freq PRN Reason Stop Dose Admin Acetaminophen 650 mg 08/15/19 15:15 08/17/19 22:31 Tylenol PO 650 mg Q4H PRN Administration Headache/Fever/Mild Pain (1-3) Amlodipine Besylate 10 mg 08/18/19 09:00 08/18/19 08:30 Norvasc PO 10 mg DAILY [facility] Administration Benzonatate 200 mg 08/15/19 21:00 08/18/19 08:32 Tessalon PO Not Given TID [facility] Carvedilol 6.25 mg 08/17/19 21:00 08/18/19 08:32 Coreg PO 6.25 mg BID IZAIAH Administration Al Hydroxide/Mg Hydroxide 60 0 ml 08/18/19 00:12 08/18/19 01:37 ml/ Lidocaine HCl 30 ml/ SSW 10 ml Diphenhydramine HCl 75 mg PRN PRN Administration Mouth Irritation Hydralazine HCl 10 mg 08/17/19 19:55 08/17/19 22:32 Apresoline SLOW IVP 10 mg Q4H PRN Administration SBP Greater Than 180 Insulin Human Lispro 0 units 08/15/19 15:31 08/18/19 05:05 Humalog SC 6 unit .MILD SLIDING SCALE PRN Administration Mild Correctional Scale Insulin Human Lispro 0 units 08/17/19 19:52 08/17/19 20:28 Humalog SC 5 unit .BEDTIME SLIDING SC PRN Administration Bedtime Correctional Scale Ipratropium [place] 0 ml 08/16/19 09:00 08/18/19 08:33 Atrovent 0.06% Nasal Inhaler NASAL Not Given BID [facility] Isosorbide Mononitrate 30 mg 08/18/19 09:00 08/18/19 08:32 Imdur Er PO 30 mg DAILY [facility] Administration Losartan Potassium 100 mg 08/18/19 09:00 08/18/19 08:30 Cozaar PO 100 mg DAILY [facility] Administration Morphine Sulfate 2 mg 08/18/19 00:15 08/18/19 00:43 Morphine SLOW IVP 2 mg Q4H PRN Administration Severe Pain (7-10) Nitroglycerin 0.4 mg 08/17/19 02:18 08/17/19 20:14 Nitrostat SL 0.4 mg PRN PRN Administration Chest Pain Simethicone 80 mg 08/17/19 21:19 08/17/19 22:24 Mylicon Chewable PO 80 mg PCHS PRN Administration Gas Pain - Exam ENT: negative: normocephalic atraumatic, no oropharyngeal lesions, moist mucosa , dry oral mucosa Neck: negative: supple, symmetric, no JVD, no thyromegaly, no lymphadenopathy, no carotid bruit, JVD Heart: negative: RRR, no murmur, no gallops, no rubs, normal peripheral pulses, irregular, diminshed peripheral pulses, murmur present, II/IV, III/IV Hosp A/P (1) Anemia due to acute blood loss Code(s): D62 - ACUTE POSTHEMORRHAGIC ANEMIA Status: Acute (2) CAD (coronary artery disease) Code(s): I25.10 - ATHSCL HEART DISEASE OF [place] CORONARY ARTERY W/O ANG PCTRS Status: Acute (3) GI bleed Code(s): K92.2 - GASTROINTESTINAL HEMORRHAGE, UNSPECIFIED Status: Acute (4) Gastric AVM Code(s): K31.819 - ANGIODYSPLASIA OF STOMACH AND DUODENUM WITHOUT BLEEDING Status: Acute (5) Hyperglycemia due to type 2 diabetes mellitus Code(s): E11.65 - TYPE 2 DIABETES MELLITUS WITH HYPERGLYCEMIA Status: Acute (6) CKD (chronic kidney disease) stage 3, GFR 30-59 ml/min Code(s): N18.3 - CHRONIC KIDNEY DISEASE, STAGE 3 (MODERATE) Status: Chronic - Plan will continue the ppi, pt to undergo egd hh is stable. s/p 3units of prbc 08/17 pt's hh is low, will give pt 3 units of blood. spoke with gi will place him npo for egd today. 08/18 pt's hh stable, s/p egd gastic fundus ulcer and small A/v malformation had cauterization. will change ppi to po bid, on clear advance per gi.
--- NOTE | 2019-08-18 16:28 | PRG ---
DATE OF SERVICE: 08/18/2019 REASON FOR CONSULTATION: Melena, anemia. SUBJECTIVE: The patient did well overnight with no acute events or problems. He states that since the procedure yesterday, he has not had any further bowel movements nor has he had any episodes of hematemesis. He has been able to tolerate a clear liquid diet well and was actually desiring more advancement in his diet today. Currently, he denies any nausea, vomiting, fevers, chills, abdominal pain, melena, hematemesis, or hematochezia. OBJECTIVE: VITAL SIGNS: Temperature 97.6, pulse 78, blood pressure 101/50, respiratory rate 18, saturating 95% on room air. GENERAL: The patient was lying in bed, in no acute distress. Alert and oriented x4. CARDIOVASCULAR: Regular rate and rhythm. RESPIRATORY: Clear to auscultation bilaterally. ABDOMEN: Normoactive bowel sounds. Soft, nontender, nondistended. EXTREMITIES: No cyanosis, clubbing, or edema. LABORATORY DATA: CBC with the white blood cell count of 11.3, hemoglobin 8.8, hematocrit 25.6, platelets 319. IMAGING DATA: EGD was performed on August 17, 2019, which showed the presence of a 2 to 3 mm ulceration in the gastric fundus that did exhibit high-risk stigmata of bleeding and did actually exhibit bleeding during the course of the procedure with manipulation with the scope. This was subsequently intervened upon with epinephrine injection as well as bipolar cauterization with good hemostasis achieved at the end of the procedure itself. ASSESSMENT AND PLAN: The patient is a 74-year-old male with past medical history of hypertension; chronic obstructive pulmonary disease; diabetes; chronic kidney disease, stage 3; osteoarthritis; gastroesophageal reflux disease; peripheral arterial disease; coronary artery disease, status post myocardial infarction; and chronic iron deficiency anemia along with gastric arteriovenous malformations, status post cautery in April 2019, and more recently in July 2019 presenting with upper gastrointestinal bleeding secondary to gastric ulcer. Gastric ulcer: The patient has had multiple episodes of hematemesis and/or melena that had been present over the last 3 to 4 months initially with a gastric arteriovenous malformation that was seen in April 2019, and again on August 04, 2019, as well. However, he was readmitted to the hospital with complaints of increased melena and noted to have significant anemia on admission. Initial attempts at upper endoscopy on August 16, 2019, were unrevealing largely due to the significant amount of retained blood within the stomach that significantly limited visualization of the gastric mucosa. Repeat upper endoscopy was performed on August 17, 2019, with good views of the stomach that yielded a 2 to 3 mm ulceration within the gastric fundus that did exhibit high-risk stigmata of recent bleeding. This was subsequently intervened upon with epinephrine injection as well as bipolar cauterization. Since intervention, the patient has had no further decrease in his H and H nor has he had any additional episodes of hematemesis or melena making the likelihood of active gastrointestinal bleeding much less likely at this time. RECOMMENDATIONS: 1. We would continue to trend his H and H and transfuse as necessary to maintain an H and H of 7/21. 2. Continue to monitor clinically for signs of active GI bleeding. 3. We would continue PPI b.i.d. in light of gastric ulcer. 4. We would avoid any NSAIDs during this hospitalization. 5. Advance diet as tolerated. If the patient is able to tolerate a full liquid diet today and with no further episodes of melena or decrease in his H and H, could potentially attempt a solid diet tomorrow and if able to tolerate that, could be considered for discharge. We will continue to follow. Please call with any questions. Job ID: [id number]
[2019-08-19] MEDS: HumaLOG 300 UNITS/3 ML VIAL SC PRN (05:26)
[2019-08-19 07:27] LABS: Hemoglobin 8.9 g/dL (14.0-18.0); Mean Corpuscular HGB CONC 34.7 g/dL (32.0-36.0); Mean Corpuscular Hemoglobin 31.9 pg (27.0-31.0); Mean Corpuscular Volume 92.1 fL (78.0-98.0); Platelet Count 385 thou/uL (130-400); RBC Distribution Width 14.8 % (11.5-14.5)
[2019-08-19] MEDS: Losartan 25 MG TAB PO SCH (08:04)
[2019-08-19] MEDS: Isosorbide Mononitrate (ER) 30 MG TAB PO SCH (08:05)
[2019-08-19] MEDS: Carvedilol 6.25 MG TAB PO SCH (08:05)
[2019-08-19] MEDS: Benzonatate 100 MG CAP PO SCH (08:05)
[2019-08-19] MEDS: Amlodipine 10 MG TAB PO SCH (08:05)
[2019-08-19] MEDS: Ipratropium Bromide 0.06% Nasal Inhaler 15ml NASAL SCH (08:06)
[2019-08-19 08:41] LABS: Eosinophils 10 % (0-10); Hypersemented Neutrophil SLIGHT; Hypochromia SLIGHT = 6-15 cells (100X) (0-5/hpf); Lymphocytes 13 % (21-51); MDiff Complete? YES; Mean Platelet Volume 7.2 fL (7.4-10.4); Monocytes 9 % (0-10); Neutrophil 68 % (42-75); Platelet Morphology Comment Appears Adequate; Polychromasia SLIGHT = 2-3 cells (100X) (0-2/hpf); White Blood Cell (WBC) Count 9.8 thou/uL (4.8-10.8)
[2019-08-19] MEDS ORDERED: GLARGINE SC SCH (09:00)
[2019-08-19] MEDS ORDERED: [UNRECOGNIZED DRUG - OTHER] SC SCH (09:00)
[2019-08-19] MEDS ORDERED: SOLIQUA SC SCH (09:00)
[2019-08-19 13:12] VITALS: BP 91/52; TEMP 97.6
--- NOTE | 2019-08-19 13:29 | EKG ---
Test Reason : SOB Blood Pressure : / mmHG Vent. Rate : 086 BPM Atrial Rate : 086 BPM P-R Int : 166 ms QRS Dur : 126 ms QT Int : 404 ms P-R-T Axes : 075 -51 097 degrees QTc Int : 483 ms Normal sinus rhythm Left axis deviation Left bundle branch block Abnormal ECG Confirmed by ELOISA SHIPLEY, STEVEN ([id number]), editor city NENITA HIDALGO ([id number]) on 08/19/2019 1:28:52 PM Referred By: Confirmed By:STEVEN AMIN MD
--- NOTE | 2019-08-19 15:16 | DIS ---
DATE OF ADMISSION: 08/15/2019 DATE OF DISCHARGE: 08/19/2019 PRIMARY CARE PROVIDER: Rudy Beth MD DISCHARGE DIAGNOSES: 1. Acute on chronic blood loss anemia. 2. Upper gastrointestinal bleeding. 3. Gastric fundus ulcer. 4. Arteriovenous malformation. 5. Gastric antral polyp. CONDITION: Condition of the patient on the day of discharge: Stable. I assessed Mr. Venegas on the day of discharge. He denies any chest pain or shortness of breath. Vital signs are stable. S1 and S2 are heard, regular. Lungs are clear to auscultation bilaterally. FOLLOWUP APPOINTMENTS: The patient is advised to follow up with primary care provider in 3 to 5 days' time and with Dr. Wagner, ground service equipment mechanic in 3 to 4 weeks. CONSULTATIONS DURING THIS HOSPITALIZATION: 1. Pulmonary and Critical Care Medicine, Dr. Herring. 2. Gastroenterology, Dr. Wagner. HOSPITAL COURSE: Mr. Venegas is a pleasant 74-year-old gentleman, who was admitted to [facility] for acute on chronic blood loss anemia on August 15, 2019. Please refer to Dr. Rg's history and physical note dated August 15, 2019, for further details. He was admitted to critical care unit for close monitoring. He was seen by Pulmonology and Gastroenterology Services. He received 6 units of packed RBC during this hospitalization. He had upper endoscopy on August 16, 2019. He was found to have hiatal hernia, normal esophageal mucosa with normal GE junction, large amount of blood clots, old in the proximal stomach, greater curvature and fundus. He also had large amount of dark coffee-ground material coating of gastric mucosa without any sign of active bleeding. He had a repeat endoscopy on August 17, 2019, at which time, he was found to have a 3 to 4 mm gastric fundus ulceration with overlying clot and red spot consistent with high-risk stigmata of recent bleeding, the patient had epinephrine injection and bipolar cauterization. He also had a 1 to 2 mm AV malformation exhibiting mild oozing of blood. He had bipolar cauterization with good hemostasis. He also had a 1-cm gastric antral polyp, which was stable in appearance. His hemoglobin remained stable. He was tolerating diet. He is being discharged home in a stable condition. DISCHARGE MEDICATIONS: No change was made to his pre-admission home medications, which include; 1. Amlodipine 10 mg daily. 2. Atorvastatin 80 mg at bedtime. 3. Furosemide 20 mg daily. 4. Gemfibrozil 600 mg 2 times a day. 5. Soliqua 30 units daily. 6. Losartan 100 mg daily. 7. Nitroglycerin 0.4 mg as needed. 8. Januvia 100 mg at bedtime. 9. Coreg 6.25 mg 2 times a day. 10. Ferrous sulfate 325 mg 2 times a day. 11. Isosorbide mononitrate 30 mg daily. 12. Protonix 40 mg 2 times a day. He has been advised to resume Plavix on August 20, 2019. On the day of discharge, he has white count of 9800, hemoglobin 8.9, and platelet count 385,000. Many thanks for allowing me to participate in your patient's care. Please feel free to contact me with any questions or concerns. He has been advised to avoid nonsteroidal anti-inflammatory agents. DISCHARGE DESTINATION: Home. TIME SPENT: Total amount of time spent in coordinating this discharge: 32 minutes. Job ID: [id number]
[2019-08-20] MEDS ORDERED: Clopidogrel Bisulfate 75 MG TAB PO SCH (09:00)
== END 2019-08-19 12:39 | disposition home or self-care (01) | DRG 327 ==
LOC: ERS 10:58 → CCU 14:41 → T4-B 08-16 16:06
PROVIDERS: ADMIT Internal Medicine; ATTEND Internal Medicine
PROC: 30233N1 Transfusion of Nonautologous Red Blood Cells into Peripheral Vein, Percutaneous Approach (ICD-10-PCS; 2019-08-15)
PROC: 0D968ZZ Drainage of Stomach, Via Natural or Artificial Opening Endoscopic (ICD-10-PCS; principal; 2019-08-16)
PROC: 0DB68ZZ Excision of Stomach, Via Natural or Artificial Opening Endoscopic (ICD-10-PCS; 2019-08-16)
PROC: 0W3P8ZZ Control Bleeding in Gastrointestinal Tract, Via Natural or Artificial Opening Endoscopic (ICD-10-PCS; 2019-08-17)
DX: K31.811 Angiodysplasia of stomach and duodenum with bleeding (principal); D62 Acute posthemorrhagic anemia; N17.9 Acute kidney failure, unspecified; I25.10 Atherosclerotic heart disease of native coronary artery without angina pectoris; E11.22 Type 2 diabetes mellitus with diabetic chronic kidney disease; K21.9 Gastro-esophageal reflux disease without esophagitis; I73.9 Peripheral vascular disease, unspecified; E87.5 Hyperkalemia; K44.9 Diaphragmatic hernia without obstruction or gangrene; K31.7 Polyp of stomach and duodenum; E11.65 Type 2 diabetes mellitus with hyperglycemia; N18.3 Chronic kidney disease, stage 3 (moderate); K25.4 Chronic or unspecified gastric ulcer with hemorrhage; M19.90 Unspecified osteoarthritis, unspecified site; J44.9 Chronic obstructive pulmonary disease, unspecified; I25.2 Old myocardial infarction; Z95.5 Presence of coronary angioplasty implant and graft; Z88.7 Allergy status to serum and vaccine
CPT/HCPCS: 36415; 36416; 36430; 71045; 74018; 80048; 80053; 81003; 81015; 82728; 82805; 83540; 83690; 83735; 83880; 84132; 84484; 85007; 85025; 85027; 85610; 85730; 86850; 86900; 86901; 93005; 93010; 94640; 96361; 96365; 96366; 96375; 96376; C9113; J0360; J2270; J3010; J3475; J3490; J7611; P9016; Q0163

== ENCOUNTER 2019-12-08 11:31 | Inpatient (IN) | payer MEDICARE, OTHER ==
[2019-12-08 12:14] LABS: #Eosinphils 0.1 thou/uL (0.0-0.7); #Lymphocytes 2.9 thou/uL (1.20-3.40); #Monocytes 1.1 thou/uL (0.11-0.59); %Basophils 0.3 % (0.0-1.0); %Eosinophils 0.8 % (0.0-10.0); %Lymphocytes 23.7 % (21.0-51.0); %Neutrophils 66.3 % (42.0-75.0); Hemoglobin 6.6 g/dL (14.0-18.0); Mean Corpuscular HGB CONC 32.6 g/dL (32.0-36.0); Mean Corpuscular Hemoglobin 30.6 pg (27.0-31.0); Mean Corpuscular Volume 93.8 fL (78.0-98.0); Mean Platelet Volume 6.8 fL (7.4-10.4); Platelet Count 783 thou/uL (130-400); RBC Distribution Width 13.4 % (11.5-14.5); Red Blood Cell (RBC) Count 2.15 mill/uL (4.70-6.10)
[2019-12-08 12:29] LABS: PTT 28.6 SEC (22.9-36.1); Prothrombin Time 13.2 SEC (12.0-14.7)
[2019-12-08 12:44] LABS: Albumin 2.9 g/dL (3.4-4.8); Calcium 7.9 mg/dL (7.8-10.44); Chloride 103 mmol/L (98-107); Globulin 2.8 g/dL (2.4-3.5); Glucose 429 mg/dL (83-110); Potassium 5.5 mmol/L (3.5-5.1); Protein, Total 5.7 g/dL (5.8-8.1); Sodium 133 mmol/L (136-145)
[2019-12-08 12:45] LABS: Anion Gap 13 mmol/L (10-20); Bilirubin, Total Less than 0.2 mg/dL (0.2-1.2); Carbon Dioxide 23 mmol/L (23-31)
[2019-12-08 12:46] LABS: Alkaline Phosphatase 232 U/L (40-110)
[2019-12-08 12:47] LABS: Calc. Creatinine Clearance 0 mL/min (70-130); Estimated GFR-MDRD 32
[2019-12-08 12:48] LABS: AST (SGOT) 11 U/L (5-34); BUN (Urea Nitrogen) 30 mg/dL (8.4-25.7)
[2019-12-08 12:58] LABS: ALT (SGPT) Less than 7 U/L (8-55)
[2019-12-08] MEDS ORDERED: Pantoprazole 40 MG VIAL ONE ×2 (13:12→14:08)
[2019-12-08] MEDS ORDERED: Pantoprazole 80 MG, Admixture Fee 1 EACH in Sodium Chloride 0.9% 100 ML IVPB SCH (13:15)
[2019-12-08 15:36] VITALS: BMI 23.3
[2019-12-08] MEDS ORDERED: Albuterol Sulfate 2.5 mg/3 ml Neb NEB PRN (16:08)
[2019-12-08] MEDS ORDERED: Dextrose 50% Abboject 50 ML SYRINGE SLOW IVP PRN ×2 (16:09→18:02)
[2019-12-08] MEDS ORDERED: Dextrose 5% in Water 1,000 ML IV PRN ×2 (16:09→18:02)
[2019-12-08] MEDS ORDERED: Ferrous Sulfate 325 MG TAB PO SCH (17:00)
[2019-12-08] MEDS ORDERED: Insulin Regular 300 UNITS/3 ML VIAL SC SCH (17:15)
[2019-12-08] MEDS ORDERED: Carvedilol 6.25 MG TAB PO SCH (17:15)
[2019-12-08] MEDS ORDERED: Albuterol Sulfate 2.5 mg/3 ml Neb NEB SCH (17:15)
[2019-12-08] MEDS: Sodium Chloride 0.9% 1,000 ML IV SCH (17:44)
[2019-12-08 18:09] LABS: Hemoglobin 8.1 g/dL (14.0-18.0)
[2019-12-08 18:18] LABS: Bacteria/HPF None Seen HPF (None Seen); Bilirubin Negative (Negative); Blood, Urine Negative (Negative); Clarity Clear (Clear); Glucose, Urine (Dipstick) 100 mg/dL (Negative); Leukocyte Negative Leu/uL (Negative); Nitrite Negative (Negative); Protein, Urine (Dipstick) 100 mg/dL (Neg-Trace); RBC/HPF None Seen HPF (0-3); Squamous Epithelial 0-3 HPF (0-3); Urobilinogen Normal mg/dL (Less than 2); WBC/HPF 0-3 HPF (0-3)
[2019-12-08 18:19] LABS: Urine Culture Reflex No No
[2019-12-08 18:26] LABS: Potassium 4.5 mmol/L (3.5-5.1)
[2019-12-08 18:39] LABS: Creatinine, Urine Less than 20.00 mg/dL (63-166); Protein, Urine Random Quant 177 mg/dL (1-14); Sodium, Urine 113 mmol/L (Not Available); Urea Nitrogen, Random Urine 137 mg/dl
--- NOTE | 2019-12-08 18:41 | PDOC.HHP ---
Hospitalist HPI - History of Present Illness low blood count History of Present Illness: 74yo M w/ MHx of CAD s/p 3 x stent, PVD s/p 2 x stent, and gastric ulceration with recent UGI bleed presented to the clinic after his oncologist referred him for a low blood count. Patient had and episode of UGI bleed in 07/2020 that was cauterized. Has been adherent to his pantoprazole and avoiding NSAIDs. ED Course: In the ED, was transfused with 1 x PRBC and was started on IV pantoprazole. Has been hemodynamically stable and exhibited no signs or symptoms of acute severe GI bleed, so was admitted to the medical floor. Hospitalist ROS - Review of Systems Constitutional: denies: fever, chills, sweats, weakness, malaise, other Respiratory: denies: cough, dry, shortness of breath, hemoptysis, SOB with excertion, pleuritic pain, sputum, wheezing, other Cardiovascular: denies: chest pain, palpitations, orthopnea, paroxysmal noc. dyspnea, edema, light headedness, other Gastrointestinal: denies: nausea, vomiting, abdominal pain, diarrhea, constipation, melena, hematochezia, other (no hematemesis) Genitourinary: denies: dysuria, frequency, incontinence, hematuria, retention, other Neurological: denies: weakness, numbness, incoordination, change in speech, confusion, seizures, other - Medication Medications: Active Medications Generic Name Dose Route Start Last Admin Trade Name Freq PRN Reason Stop Dose Admin Albuterol Sulfate 10 mg 12/08/19 17:15 12/08/19 18:33 Ventolin NEB 12/08/19 19:15 10 mg NOW IZAIAH Administration Carvedilol 6.25 mg 12/08/19 17:15 12/08/19 17:40 Coreg PO 12/08/19 19:15 6.25 mg NOW IZAIAH Administration Sodium Chloride 1,000 mls @ 50 mls/hr 12/08/19 16:45 12/08/19 17:44 Normal Saline 0.9% IV 1,000 mls .Q20H IZAIAH Administration Insulin Human Regular 10 units 12/08/19 17:15 12/08/19 17:38 Humulin R SC 12/08/19 19:15 10 unit NOW IZAIAH Administration Hospitalist History - Past Medical History Source: patient, family Cardiac: reports: CAD, HTN Pulmonary: reports: no pertinent history STERILE PROC TECH: reports: no pertinent history Gastrointestinal: reports: GI bleed, Gastritis, Peptic ulcer disease Heme/Onc: reports: Anemia NOS Hepatobiliary: reports: no pertinent history Psych: reports: no pertinent history Musculoskeletal: reports: no pertinent history Rheumatologic: reports: no pertinent history Infectious Disease: reports: no pertinent history ENT: reports: no pertinent history Renal/: reports: no pertinent history Endocrine: reports: Diabetes Dermatology: reports: no pertinent history - Past Surgical History Other Surgical History: coronary and peripheral stent placements - Family History Family History: reports: cardiac disorder, diabetes mellitus, hypertension - Social History Smoking Status: Former smoker Tobacco Type: cigarettes Alcohol: reports: None Drugs: reports: none Living Situation: With Family Domestic Violence: Negative Activity level: independent ambulation - Exam General Appearance: NAD, awake alert Eye: PERRL Eye - other findings: pale subconjuctivae ENT: normocephalic atraumatic, no oropharyngeal lesions, moist mucosa Heart: RRR, no murmur, no gallops, no rubs, normal peripheral pulses Respiratory: CTAB, no wheezes, no rales, no ronchi, normal chest expansion, no tachypnea, normal percussion Gastrointestinal: soft, non-tender, non-distended, normal bowel sounds, no palpable masses, no hepatomegaly, no splenomegaly, no bruit Gastrointestinal - other findings: longitudinal well healed scar; no overt blood on rectal exam Extremities: no cyanosis, no clubbing, no edema Skin: normal turgor, no lesions, no rashes Neurological: cranial nerve grossly intact, normal sensation to touch, no weakness, no focal deficits, no new deficit Musculoskeletal: normal tone, normal strength, no muscle wasting Psychiatric: normal affect, normal behavior, A&O x 3 Hospitalist Results - Labs Result Diagrams: 12/08/19 18:01 12/08/19 18:01 Lab results: WBC 12.0 thou/uL (4.8-10.8) H 12/08/19 12:04 Hgb 8.1 g/dL (14.0-18.0) L 12/08/19 18:01 Hct 20.2 % (42.0-52.0) L 12/08/19 12:04 MCV 93.8 fL (78.0-98.0) 12/08/19 12:04 Plt Count 783 thou/uL (130-400) H 12/08/19 12:04 Neutrophils % 66.3 % (42.0-75.0) 12/08/19 12:04 Sodium 133 mmol/L (136-145) L 12/08/19 12:04 Potassium 4.5 mmol/L (3.5-5.1) 12/08/19 18:01 Chloride 103 mmol/L (98-107) 12/08/19 12:04 Carbon Dioxide 23 mmol/L (23-31) 12/08/19 12:04 BUN 30 mg/dL (8.4-25.7) H 12/08/19 12:04 Creatinine 2.02 mg/dL (0.7-1.3) H 12/08/19 12:04 Glucose 429 mg/dL (83-110) H 12/08/19 12:04 Calcium 7.9 mg/dL (7.8-10.44) 12/08/19 12:04 Total Bilirubin Less than 0.2 mg/dL (0.2-1.2) L 12/08/19 12:04 AST 11 U/L (5-34) 12/08/19 12:04 ALT Less than 7 U/L (8-55) L 12/08/19 12:04 Alkaline Phosphatase 232 U/L (40-110) H 12/08/19 12:04 Troponin I 0.011 ng/mL (< 0.028) 12/08/19 12:04 Serum Total Protein 5.7 g/dL (5.8-8.1) L 12/08/19 12:04 Albumin 2.9 g/dL (3.4-4.8) L 12/08/19 12:04 Urine Ketones Negative mg/dL (Negative) 12/08/19 Unknown Urine Blood Negative (Negative) 12/08/19 Unknown Urine Nitrite Negative (Negative) 12/08/19 Unknown Ur Leukocyte Esterase Negative Armando/uL (Negative) 12/08/19 Unknown Urine RBC None Seen HPF (0-3) 12/08/19 Unknown Urine WBC 0-3 HPF (0-3) 12/08/19 Unknown Ur Squamous Epith Cells 0-3 HPF (0-3) 12/08/19 Unknown Urine Bacteria None Seen HPF (None Seen) 12/08/19 Unknown Hospitalist H&P A/P - Problem (1) Chronic anemia Code(s): D64.9 - ANEMIA, UNSPECIFIED Status: Chronic Assessment and Plan: HgB decreased by ~ 4g since august on presentation, HD stable, not tachycardic, no acute symtpoms - suggestive of chronic course labs no consistent with hemolysis HgB 8.1 s/p 1xPRBC -FOBT pending -GI onboard; possible UGI endoscopy tomorrow -continue pantoprazole -clear liquids until midnight; then NPO -repeat HgB in AM (2) CAD (coronary artery disease) Code(s): I25.10 - ATHSCL HEART DISEASE OF [place] CORONARY ARTERY W/O ANG PCTRS Status: Acute Assessment and Plan: has been on aspirin and plavix for CAD and PVD stents -hold aspirin and plavix -SCD for DVT prophylaxis (3) COPD (chronic obstructive pulmonary disease) Status: Chronic Assessment and Plan: currently well controlled -duoneb PRN SOB (4) Hypertension Code(s): I10 - ESSENTIAL (PRIMARY) HYPERTENSION Status: Acute Qualifiers: Hypertension type: essential hypertension Qualified Code(s): I10 - Essential (primary) hypertension Assessment and Plan: -continue coreg, amlodipine considering chronic nature of anemia, less concern for decompensation -
[2019-12-08] MEDS ORDERED: Amlodipine 10 MG TAB PO SCH (19:30)
--- NOTE | 2019-12-08 19:58 | CON ---
DATE OF CONSULTATION: 12/08/2019 SERVICE: Nephrology. REASON FOR CONSULTATION: Acute kidney injury. REQUESTING PHYSICIAN: Dr. Willy Gonzalez. CHIEF COMPLAINT: Generalized weakness and low blood count. HISTORY OF PRESENT ILLNESS: A 74-year-old male with known history of coronary artery disease status post stent placement, peripheral artery disease as well as recurrent GI bleeding from gastric ulceration, who was admitted due to generalized weakness and ill feeling associated with low blood count. The patient was found to have a hemoglobin of 6.6 and was transfused 1 unit of packed red blood cells and started on Protonix infusion and admitted for further evaluation and treatment. The patient also was found to have creatinine elevation of 2.02. He denied nausea, vomiting, hematemesis, hematochezia, but admitted to black stool. He also denied hematuria, dysuria, but admitted to leg swelling especially on standing for a long period. There is no history of chest pain, shortness of breath or fever. PAST MEDICAL HISTORY: 1. Coronary artery disease. 2. COPD. 3. Diabetes mellitus. 4. Chronic anemia. 5. GI bleeding. 6. AV malformation. 7. Gastroesophageal reflux disease. 8. CKD stage 3-4. 9. Peripheral artery disease. PAST SURGICAL HISTORY: 1. Multiple episodes of EGD. 2. Colonoscopies. 3. Cardiac catheterization with stent placement. 4. Splenectomy. 5. Neck surgery. FAMILY HISTORY: Reviewed and noncontributory. No history of premature coronary artery disease in family. SOCIAL HISTORY: The patient is a former smoker who quit smoking about 2 to 3 months ago. Denied alcohol or recreational drug use. ALLERGIES: TETANUS TOXOID/VACCINE. MEDICATIONS: Prior to hospital medications: 1. Albuterol sulfate 3 mL nebulization t.i.d. p.r.n. 2. Amlodipine 10 mg p.o. daily. 3. Lipitor 80 mg p.o. daily at bedtime. 4. Furosemide 20 mg p.o. daily. 5. Gemfibrozil 600 mg p.o. b.i.d. 6. Lantus 40 units subcutaneously daily. 7. Losartan 100 mg p.o. daily. 8. Nitroglycerin 0.4 mg p.o. sublingual p.r.n. 9. Carvedilol 6.25 mg p.o. b.i.d. 10. Ferrous sulfate 325 mg p.o. b.i.d. 11. Isosorbide mononitrate 30 mg p.o. daily. 12. Protonix 40 mg p.o. b.i.d. REVIEW OF SYSTEMS: 12-point review of system performed was negative other than pertinent positives and negatives included in the history of present illness. PHYSICAL EXAMINATION: VITAL SIGNS: Temperature 98.7. Pulse 79, respiratory rate 12, SpO2 97% on room air, blood pressure is 180/78. GENERAL: Comfortable elderly male, in no obvious distress. Afebrile. Anicteric. Acyanotic. HEENT: Normocephalic, atraumatic. Oral mucosa is moist. NECK: Supple with no JVD. CARDIOVASCULAR: Regular rhythm and rate with normal. heart sounds one and two. RESPIRATORY: Fair air entry bilaterally with scattered transmitted breath sounds. No obvious rhonchi was appreciated. Work of breathing is not increased. GI: Full, soft, nontender, nondistended with normal bowel sounds. EXTREMITIES: Grossly normal looking atraumatic with no edema or erythema. TEMPLE MARKER: Conscious, alert, oriented x3 with appropriate mental status. Cranial nerves 2 through 12 are grossly intact. DIAGNOSTIC DATA: CBC showed WBC count of 12.0, hemoglobin of 6.6, MCV of 93.8 platelet of 783. Coagulation panel showed PT 13.2, INR 1.0, and PTT 28.6. Chemistry showed sodium 133, potassium 5.5, chloride 103, CO2 of 23, BUN 30, creatinine 2.02, glucose 429, calcium 7.9, total bilirubin less than 0.2, AST 11, ALT less than 7, alkaline phosphatase 232, total protein 5.7, albumin 2.9, globulin 2.8. Initial troponin was 0.011. ASSESSMENT: 1. Acute kidney injury: Most likely due to hemodynamic factors related to volume depletion from [id number] hemorrhage as well as use of Lasix and Acleq-eqfurqkoffq-oftkdrnmdvo raheem. 2. Hyponatremia: This is pseudohyponatremia given marked hyperglycemia. Corrected sodium is within normal limits. 3. Hyperkalemia: Treated medically with insulin and dextrose. 4. Qtugb-fu-hseiosi blood loss anemia. 5. Generalized weakness and malaise and fatigue due to acute anemia. 6. Chronic kidney disease stage 3-4. 7. Hypertension. 8. Coronary artery disease. PLAN: 1. We will start gentle IV fluid hydration. 2. Agree with blood transfusion. 3. We will monitor hemoglobin and hematocrit. 4. We will also get urinalysis as well as urine electrolytes. 5. We will hold Lasix and losartan. 6. We will continue other antihypertensives and titrate them to get adequate BP control. 7. We will repeat serum potassium following medical treatment. 8. We will repeat renal function test in the morning. 9. Further treatment to follow depending on hospital course. Many thanks for involving us in the care of this patient. We will follow along with you. Job ID: [id number]
[2019-12-08] MEDS: Carvedilol 6.25 MG TAB PO SCH (20:39)
[2019-12-08] MEDS: Atorvastatin Calcium 40 MG TAB PO SCH (20:40)
[2019-12-08] MEDS: HumaLOG 300 UNITS/3 ML VIAL SC PRN (20:42)
[2019-12-08] MEDS ORDERED: Insulin Glargine 20 UNITS in Pre-Filled Syringe 1 EACH SC SCH (21:00)
[2019-12-08] MEDS ORDERED: Insulin Glargine 40 UNITS in Pre-Filled Syringe SC SCH (21:00)
[2019-12-09] MEDS ORDERED: Dextrose 50 % In Water 50 ML SYRINGE IV PRN (00:14)
--- NOTE | 2019-12-09 00:31 | CON ---
DATE OF CONSULTATION: 12/08/2019 CONSULTING PHYSICIAN: Willy Gonzalez MD. REASON FOR CONSULT: Recent upper GI bleed and anemia. HISTORY OF PRESENT ILLNESS: Mr. 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 It seems he was first seen in April of last year at least at this hospital with iron deficiency anemia and was found an AVM bleeding in the stomach and the consultation from that time in April of 2019 report that he had been seen in [place] in the past at [facility] several years ago and had upper and lower endoscopies and had bleeding source in the stomach. He had been treated in [place] for sometime before coming to this area and was just given blood transfusion intermittently and IV iron infusions. He states that the last time he had several endoscopies in which it would stop active bleeding or some of this was even clot in his stomach, and then ultimately his last endoscopy which was performed on 07/[address] Lui, showed a significant visible vessel which was ablated and he has really done well since that time. He just went in for a routine followup blood count and his blood count was found to be 7.8, that was on the 6. Around that time also he was seen by his PCP for cough, shortness of breath, bronchitis, and body aches for 5 days, it was felt he probably had the flu. Now he is doing better. He thinks the anemia was caused by the fact he was coughing so much. He denies having any melena, but has taken iron pills intermittently. He has no vomiting, hematemesis. Denies abdominal pain. He had been feeling well except for this illness last week. Apparently today he was sent to Hematology for evaluation and he was admitted to the hospital for hemoglobin of 6.6. PAST MEDICAL HISTORY: Diabetes, hypertension, coronary artery disease, reflux, chronic iron deficiency anemia with vascular lesion of the stomach. It is unclear if this was just an AVM or a Dieulafoy-like lesion. It has been cauterized several times in the past, seemingly in [place] and then more recently at our facility here with Dr. Lawson in 04/2019. He has not had any AVM seen in his small bowel. He was treated here at 05/07/2019. Then on 08/05/2019, he had an AVM in the proximal gastric body with overlying clot that was treated with APC and a 1.5 cm polyp in the gastric antrum that was not removed. Apparently, it is known to be a tubular adenoma but was not bleeding. Subsequently on 08/16, he had another endoscopy for bleeding and there was so much blood in the stomach and once the clot was cleared no site could be found. A Followup endoscopy the next day with Dr. Lui on 08/17/2019, there was a 2-3 mm ulceration in the fundus of the stomach with clot that was felt to be visible vessel that was injected and then cauterized with a 7-Italian bipolar probe. There was another small AVM nonbleeding was ablated as well and 1 cm antral polyp was not removed. Again the duodenum showed no AVMs. The patient has not had a repeat colonoscopy. He does not remember when his last one was, but it was several years ago by his report. He is feeling very weak, admission. Peripheral vascular disease, myocardial infarction, previous splenectomy, chronic kidney disease, prior coronary artery disease with recommendation to take Plavix, but he is not taking that now. HOME MEDICATIONS: 1. Atorvastatin. 2. Januvia. 3. Ferrous sulfate. 4. Losartan. 5. Isosorbide mononitrate. 6. Carvedilol. 7. Gemfibrozil. 8. Furosemide. 9. Protonix. 10. Amlodipine. 11. Soliqua. SOCIAL HISTORY: Denies IV drugs, tobacco. FAMILY HISTORY: Negative for bleeding disorders. PHYSICAL EXAMINATION: VITAL SIGNS: Temperature is 97, pulse 78, blood pressure 91/52 to 115/47. LUNGS: Clear. He has a slight cough. Oropharynx, no lesions. NECK: Supple. No adenopathy. LUNGS: Clear. HEART: Regular rhythm without clicks or murmurs. ABDOMEN: Soft and nontender. EXTREMITIES: No clubbing, cyanosis, or edema. LABORATORY DATA: White count 12; hemoglobin 6.6, was 7.8 on 12/04, and 10.4 on 09/26/2019; platelet count 783. INR normal. Sodium 133, potassium 5.5, BUN and creatinine are 30 and 2.02, glucose 429. Bilirubin less than 2. Liver function tests normal. Iron 15 on 12/04. ASSESSMENT: 1. History of chronic anemia related to arteriovenous malformations in the stomach. He occasionally had presented with some melena and acute bleeds, one wonders if this has even been like a Dieulafoy-like lesion. Initially, he has had no arteriovenous malformations in the stomach. He has no vascular malformations of his lips or mouth. He has had a colonoscopy in the past but it has been distant. It is unclear to me if he has had a capsule endoscopy of the small bowel. 2. Recent flu like illness. 3. Mild renal insufficiency with elevated potassium. RECOMMENDATIONS: IV fluids, a little bit of saline without potassium. Labs stabilized. We will plan for an upper endoscopy tomorrow to evaluate the lesion, although it does not seem to have bled acutely. His hemoglobin is dropped requiring transfusion. We can see what it looks like at baseline. If this is negative, it would be reasonable for him to have a colonoscopy as it does not seem he has had once in many years, maybe more than 10 and if that is negative, even consider capsule endoscopy of the small bowel. We will follow along with you. A list these things have been performed in the office after review of this chart. We will follow along with you. Job ID: [id number]
[2019-12-09 04:42] LABS: #Eosinphils 0.1 thou/uL (0.0-0.7); #Lymphocytes 2.6 thou/uL (1.20-3.40); #Monocytes 0.8 thou/uL (0.11-0.59); #Neutrophils 16.4 thou/uL (1.40-6.50); %Basophils 0.1 % (0.0-1.0); %Eosinophils 0.6 % (0.0-10.0); %Monocytes 3.9 % (0.0-10.0); %Neutrophils 82.4 % (42.0-75.0); Hemoglobin 7.7 g/dL (14.0-18.0); Mean Corpuscular HGB CONC 31.6 g/dL (32.0-36.0); Mean Corpuscular Hemoglobin 28.2 pg (27.0-31.0); Mean Corpuscular Volume 89.3 fL (78.0-98.0); Mean Platelet Volume 6.9 fL (7.4-10.4); Platelet Count 694 thou/uL (130-400); RBC Distribution Width 15.3 % (11.5-14.5); Red Blood Cell (RBC) Count 2.73 mill/uL (4.70-6.10); White Blood Cell (WBC) Count 19.9 thou/uL (4.8-10.8)
[2019-12-09 04:58] LABS: Albumin 2.8 g/dL (3.4-4.8); Anion Gap 13 mmol/L (10-20); BUN (Urea Nitrogen) 23 mg/dL (8.4-25.7); BUN/Creatinine Ratio 14.56; Calc. Creatinine Clearance 40 mL/min (70-130); Calcium 7.9 mg/dL (7.8-10.44); Carbon Dioxide 22 mmol/L (23-31); Chloride 106 mmol/L (98-107); Estimated GFR-MDRD 43; Glucose 80 mg/dL (83-110); Magnesium 1.6 mg/dL (1.6-2.6); Phosphorus 3.4 mg/dL (2.3-4.7); Potassium 4.2 mmol/L (3.5-5.1); Sodium 137 mmol/L (136-145)
[2019-12-09] MEDS ORDERED: LIXISENATIDE SC SCH (09:00)
[2019-12-09] MEDS ORDERED: Losartan 25 MG TAB PO SCH ×2 (09:00→13:00)
[2019-12-09] MEDS ORDERED: Clopidogrel Bisulfate 75 MG TAB PO SCH (09:00)
[2019-12-09] MEDS ORDERED: INSULIN GLARGINE SC SCH (09:00)
[2019-12-09] MEDS ORDERED: Promethazine HCl 25 MG/ML VIAL SLOW IVP PRN (09:50)
[2019-12-09] MEDS ORDERED: Promethazine HCl 25 MG/ML VIAL IM PRN (09:50)
[2019-12-09] MEDS ORDERED: Ondansetron HCl/PF 4 MG/2 ML Vial IVP PRN (09:50)
[2019-12-09] MEDS: Carvedilol 6.25 MG TAB PO SCH ×2 (10:38→20:19)
[2019-12-09] MEDS: Isosorbide Mononitrate (ER) 30 MG TAB PO SCH (10:38)
[2019-12-09] MEDS: Amlodipine 10 MG TAB PO SCH (10:38)
[2019-12-09] MEDS: Sodium Chloride 0.9% 1,000 ML IV SCH ×2 (10:40→22:17)
--- NOTE | 2019-12-09 11:10 | OP ---
DATE OF PROCEDURE: 12/09/2019 PREPROCEDURE DIAGNOSES: 1. History of recurrent anemia at times with gastrointestinal bleeding from arteriovenous malformations in the upper gastrointestinal tract, now presents with hemoglobin of 6.6, but no active bleeding. 2. 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 POSTPROCEDURE DIAGNOSES: 1. Hiatal hernia with no Ender erosions. 2. Two small arteriovenous malformations in the duodenum, 2nd and 3rd portions, nonbleeding, cauterized with 7-Turkish heater probe cautery. 3. No arteriovenous malformations or blood in the stomach at this time. 4. 1 cm polyp in the antrum of the stomach, previously biopsied adenoma removed by hot snare polypectomy and hemoclip placed. RECOMMENDATIONS: Colonoscopy on Wednesday to evaluate for other bleeding sources and polyps. He has had a remote history of colonoscopy in [place], that is unavailable as at least over 5 to 10 years old per patient. Colonoscopy will depend on his respiratory status as he is getting over upper respiratory illness. He tolerated the endoscopy, but had quite a bit of coughing and required extra oxygen. Colonoscopy would be elected Wednesday, we will do that, otherwise he can go home. We will do that as an outpatient. ANESTHESIA: TIVA. PROCEDURE IN DETAIL: After the patient was informed of the risks, benefits, and possible complications, the patient was brought to endoscopy suite, where he was sedated in gradual. Once he was comfortable, a bite-block was placed inside the orifice. Endoscope was advanced to the esophagus, stomach, and 2nd and 3rd portions of the duodenum and slowly removed. The esophagus was normal. There was a hiatal hernia, sliding type, about 3 cm in size. There were no Ender's ulcerations or erosions. In the stomach, there was no evidence of AVMs. The previous noted AVMs in the body of the stomach and cauterized in the past, not seen. There was no fresh blood in the stomach. There was a mass in the antrum of stomach, consistent with villous lesion like an adenoma, it has been previously biopsied, has been confirmed. Decision was made to remove that with a hot snare polypectomy. Hemoclip was placed to prevent any bleeding. The forward and retroflexed views of the stomach were otherwise normal except for small submucosal area about 5 mm in size with slight prominence. This has been noted in the past as well as nonbleeding. The duodenal bulb was normal. The duodenum of 2nd and 3rd portions did have some small AVMs, they were nonbleeding. These were cauterized. The scope was then removed. The patient tolerated the procedure well. There were no complications. Job ID: [id number]
[2019-12-09] MEDS ORDERED: PROPOFOL 200 MG/20 ML VIAL ONE (11:58)
[2019-12-09] MEDS: HumaLOG 300 UNITS/3 ML VIAL SC PRN ×2 (12:10→17:12)
--- NOTE | 2019-12-09 12:18 | PRG ---
DATE OF SERVICE: 12/09/2019 SERVICE: Nephrology. SUBJECTIVE: A 74-year-old male seen in followup for acute on chronic kidney injury. The patient with CKD and recurrent GI bleed, who was admitted due to generalized weakness and acute drop in hemoglobin. He is status post blood transfusion, feeling better. Endoscopic evaluation is planned. Denied nausea, vomiting. OBJECTIVE: VITAL SIGNS: Temperature 98.4, pulse 95, respiratory rate 19, SpO2 94% on room air, and blood pressure is 125/88. GENERAL: Elderly male, in no obvious distress. Afebrile. Anicteric. Acyanotic. HEENT: Normocephalic, atraumatic. Oral mucosa is moist. CARDIOVASCULAR: Regular rhythm and rate with normal heart sounds. RESPIRATORY: Fair air entry bilaterally with few transmitted breath sounds as well as questionable bibasilar crackles. GI: Full, soft, nontender, nondistended with normal bowel sounds. EXTREMITIES: Grossly normal-looking, atraumatic, with no edema or erythema. 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 Cranial nerves 2 through 12 are grossly intact. DIAGNOSTIC DATA: CBC showed WBC count of 19.9, hemoglobin of 7.7, platelet of 694. Renal function panel showed sodium 137, potassium 4.2, chloride 106, CO2 of 22, BUN 23, creatinine 1.58 down from 2.02 on admission. Glucose is 80, calcium is 7.9, phosphorus is 3.4, and albumin is 2.8. Magnesium is 1.6. ASSESSMENT: 1. Acute kidney injury: Due to hemodynamic factors related to acute on chronic anemia from GI bleeding as well as volume contraction and diuretic therapy as well as RAAS raheem use. Renal function is improving with IV fluid therapy while Lasix and RAAS raheem are held. 2. Chronic kidney disease stage 3/4. 3. Acute on chronic anemia. 4. Acute on chronic gastrointestinal bleeding. 5. Hypertension: Control is acceptable. PLAN: Continue gentle IV fluid hydration while holding diuretics and RAAS raheem. Blood transfusion as per primary attending. Endoscopic evaluation as per GI. We will repeat renal function test in the morning. Further treatment to follow depending on hospital course. Job ID: [id number]
--- NOTE | 2019-12-09 12:42 | PDOC.HOSPP ---
- Subjective Encounter Date: 12/09/19 Encounter Time: 08:00 Subjective: Overnight, asymptomatic hypoglycemia episode so was given dextrose. Otherwise no events. This morning, endorses normal bowel movement with no overt blood. - Objective Vital Signs & Weight: Vital Signs (12 hours) Temp Pulse Resp BP BP BP Pulse Ox 12/09/19 10:38 95 161/71 H 12/09/19 10:27 98.4 F 95 19 125/68 94 L 12/09/19 07:40 98.6 F 81 12 180/80 H 91 L 12/09/19 04:30 98.1 F 87 12 153/66 H 92 L Weight Weight 158 lb I&O: 12/08/19 12/09/19 12/10/19 06:59 06:59 06:59 Intake Total 1178 Output Total 1250 Balance -72 Result Diagrams: 12/09/19 04:20 12/09/19 04:20 Additional Labs: Accuchecks 12/09/19 12/09/19 12/09/19 11:50 08:12 04:23 POC Glucose 272 H 122 H 91 12/09/19 12/08/19 12/08/19 00:44 20:05 16:53 POC Glucose 124 H 359 H 259 H Hospitalist ROS - Review of Systems Constitutional: denies: fever, chills, sweats, weakness, malaise, other Eyes: denies: pain, vision change, conjunctivae inflammation, eyelid inflammation, redness, other Respiratory: denies: cough, dry, shortness of breath, hemoptysis, SOB with excertion, pleuritic pain, sputum, wheezing, other Cardiovascular: denies: chest pain, palpitations, orthopnea, paroxysmal noc. dyspnea, edema, light headedness, other Gastrointestinal: denies: nausea, vomiting, abdominal pain, diarrhea, constipation, melena, hematochezia, other Genitourinary: denies: dysuria, frequency, incontinence, hematuria, retention, other - Medication Medications: Active Medications Generic Name Dose Route Start Last Admin Trade Name Freq PRN Reason Stop Dose Admin Amlodipine Besylate 10 mg 12/09/19 09:00 12/09/19 10:38 Norvasc PO 10 mg DAILY IZAIAH Administration Atorvastatin Calcium 80 mg 12/08/19 21:00 12/08/19 20:40 Lipitor PO 80 mg HS IZAIAH Administration Carvedilol 6.25 mg 12/08/19 21:00 12/09/19 10:38 Coreg PO 6.25 mg BID IZAIAH Administration Glucagon 1 mg 12/08/19 18:02 12/09/19 00:15 Glucagon IM 1 mg PRN PRN Administration Hypoglycemia Sodium Chloride 1,000 mls @ 50 mls/hr 12/08/19 16:45 12/09/19 10:40 Normal Saline 0.9% IV 1,000 mls .Q20H IZAIAH Administration Insulin Glargine 20 units/ 0.2 mls @ 0 mls/hr 12/08/19 21:00 12/08/19 20:41 Miscellaneous Medication SC 0.2 mls HS IZAIAH Administration Insulin Human Lispro 0 units 12/08/19 18:02 12/09/19 12:10 Humalog SC 6 unit .MODERATE SLIDING SC PRN Administration Moderate Correctional Scale Isosorbide Mononitrate 30 mg 12/09/19 09:00 12/09/19 10:38 Imdur Er PO 30 mg DAILY IZAIAH Administration Pantoprazole Sodium 40 mg 12/08/19 21:00 12/09/19 10:38 Protonix PO 40 mg BID IZAIAH Administration Sodium Chloride 10 ml 12/08/19 17:51 12/09/19 00:18 Flush - Normal Saline IVF 10 ml PRN PRN Administration Saline Flush - Exam General Appearance: NAD, awake alert ENT: normocephalic atraumatic, no oropharyngeal lesions, moist mucosa Neck: supple, symmetric, no JVD, no thyromegaly, no lymphadenopathy, no carotid bruit Heart: RRR, no murmur, no gallops, no rubs, normal peripheral pulses Gastrointestinal: soft, non-tender, non-distended, normal bowel sounds, no palpable masses, no hepatomegaly, no splenomegaly, no bruit Neurological: cranial nerve grossly intact, normal sensation to touch, no weakness, no focal deficits, no new deficit Hosp A/P (1) Chronic anemia Code(s): D64.9 - ANEMIA, UNSPECIFIED Status: Chronic Plan: FOBT negative HgB stable overnight pending EGD -HgB in AM (2) CAD (coronary artery disease) Code(s): I25.10 - ATHSCL HEART DISEASE OF [place] CORONARY ARTERY W/O ANG PCTRS Status: Acute Plan: will restart aspirin but hold plavix for possible colonoscopy on Wednesday (3) COPD (chronic obstructive pulmonary disease) Status: Chronic Plan: currently well controlled with duoneb PRN (4) Hypertension Code(s): I10 - ESSENTIAL (PRIMARY) HYPERTENSION Status: Acute Qualifiers: Hypertension type: essential hypertension Qualified Code(s): I10 - Essential (primary) hypertension Plan: TIFFANY resolved; patient at baseline Cr; -continue coreg and imdur -restart home losartan
[2019-12-09 14:00] LABS: #Eosinphils 0.1 thou/uL (0.0-0.7); #Lymphocytes 1.9 thou/uL (1.20-3.40); #Monocytes 0.8 thou/uL (0.11-0.59); #Neutrophils 8.4 thou/uL (1.40-6.50); %Basophils 0.1 % (0.0-1.0); %Eosinophils 1.2 % (0.0-10.0); %Lymphocytes 16.5 % (21.0-51.0); %Neutrophils 75.1 % (42.0-75.0); Hemoglobin 7.6 g/dL (14.0-18.0); Mean Corpuscular HGB CONC 31.6 g/dL (32.0-36.0); Mean Corpuscular Hemoglobin 28.8 pg (27.0-31.0); Mean Corpuscular Volume 91.2 fL (78.0-98.0); Platelet Count 693 thou/uL (130-400); RBC Distribution Width 15.2 % (11.5-14.5); Red Blood Cell (RBC) Count 2.64 mill/uL (4.70-6.10); White Blood Cell (WBC) Count 11.2 thou/uL (4.8-10.8)
[2019-12-09 14:19] LABS: Anion Gap 14 mmol/L (10-20); BUN (Urea Nitrogen) 22 mg/dL (8.4-25.7); Calc. Creatinine Clearance 37 mL/min (70-130); Calcium 7.6 mg/dL (7.8-10.44); Carbon Dioxide 20 mmol/L (23-31); Chloride 106 mmol/L (98-107); Estimated GFR-MDRD 39; Glucose 334 mg/dL (83-110); Potassium 4.8 mmol/L (3.5-5.1); Sodium 135 mmol/L (136-145)
[2019-12-09 18:11] LABS: #Eosinphils 0.2 thou/uL (0.0-0.7); #Lymphocytes 2.2 thou/uL (1.20-3.40); #Neutrophils 6.8 thou/uL (1.40-6.50); %Basophils 0.3 % (0.0-1.0); %Eosinophils 2.1 % (0.0-10.0); %Lymphocytes 21.7 % (21.0-51.0); %Monocytes 9.4 % (0.0-10.0); %Neutrophils 66.6 % (42.0-75.0); Hemoglobin 7.6 g/dL (14.0-18.0); Mean Corpuscular HGB CONC 32.8 g/dL (32.0-36.0); Mean Corpuscular Hemoglobin 29.7 pg (27.0-31.0); Mean Corpuscular Volume 90.4 fL (78.0-98.0); Mean Platelet Volume 6.6 fL (7.4-10.4); Platelet Count 701 thou/uL (130-400); Red Blood Cell (RBC) Count 2.55 mill/uL (4.70-6.10); White Blood Cell (WBC) Count 10.2 thou/uL (4.8-10.8)
[2019-12-09 18:35] LABS: Anion Gap 13 mmol/L (10-20); BUN (Urea Nitrogen) 24 mg/dL (8.4-25.7); Calc. Creatinine Clearance 37 mL/min (70-130); Calcium 7.7 mg/dL (7.8-10.44); Carbon Dioxide 22 mmol/L (23-31); Chloride 105 mmol/L (98-107); Estimated GFR-MDRD 39; Glucose 231 mg/dL (83-110); Potassium 5.1 mmol/L (3.5-5.1); Sodium 135 mmol/L (136-145)
[2019-12-09] MEDS: Atorvastatin Calcium 40 MG TAB PO SCH (20:19)
--- NOTE | 2019-12-09 21:16 | RAD ---
Chest AP view INDICATION: Low O2 sats and shortness of breath COMPARISON: None FINDINGS: Lungs:The lungs are clear Cardiac silhouette:The cardiomediastinal silhouette appears within normal limits. Pulmonary vasculature:Normal Pleural spaces:No pleural effusion or pneumothorax is demonstrated. Upper abdomen:No abnormality seen. Osseous structures: No acute osseous abnormality. Additional findings:Surgical clips of the lower neck base are stable. Vascular calcification aortic a rch are stable appearing. IMPRESSION: No acute cardiopulmonary abnormality.
[2019-12-10] MEDS: HumaLOG 300 UNITS/3 ML VIAL SC PRN ×2 (00:46→12:33)
[2019-12-10 08:34] VITALS: BP 165/72; TEMP 98.7
[2019-12-10 08:40] LABS: Mean Corpuscular HGB CONC 31.6 g/dL (32.0-36.0); Mean Corpuscular Hemoglobin 28.6 pg (27.0-31.0); Mean Corpuscular Volume 90.6 fL (78.0-98.0); Mean Platelet Volume 6.7 fL (7.4-10.4); Platelet Count 729 thou/uL (130-400); RBC Distribution Width 14.9 % (11.5-14.5); Red Blood Cell (RBC) Count 2.81 mill/uL (4.70-6.10); White Blood Cell (WBC) Count 11.5 thou/uL (4.8-10.8)
[2019-12-10] MEDS: Isosorbide Mononitrate (ER) 30 MG TAB PO SCH (08:44)
[2019-12-10] MEDS: Carvedilol 6.25 MG TAB PO SCH (08:44)
[2019-12-10] MEDS: Amlodipine 10 MG TAB PO SCH (08:45)
[2019-12-10] MEDS ORDERED: Isosorbide Mononitrate (ER) 30 MG TAB PO SCH (09:00)
[2019-12-10 09:03] LABS: Albumin 2.9 g/dL (3.4-4.8); Anion Gap 13 mmol/L (10-20); BUN (Urea Nitrogen) 24 mg/dL (8.4-25.7); BUN/Creatinine Ratio 16.33; Calc. Creatinine Clearance 43 mL/min (70-130); Calcium 7.7 mg/dL (7.8-10.44); Carbon Dioxide 21 mmol/L (23-31); Chloride 108 mmol/L (98-107); Estimated GFR-MDRD 47; Glucose 163 mg/dL (83-110); Phosphorus 3.3 mg/dL (2.3-4.7); Potassium 4.6 mmol/L (3.5-5.1); Sodium 137 mmol/L (136-145)
--- NOTE | 2019-12-10 09:53 | PRG ---
DATE OF SERVICE: 12/10/2019 SERVICE: Nephrology. SUBJECTIVE: This is a 74-year-old male with recurrent GI bleed, admitted due to generalized weakness and acute on chronic anemia. Nephrology is following for acute on chronic kidney disease. Reports feeling better. Denied nausea, vomiting, or diarrhea. OBJECTIVE: VITAL SIGNS: Temperature 97.8, pulse 73, respiratory rate 16, SpO2 of 91 on room air, blood pressure is 165/72. GENERAL: Comfortable elderly male, in no distress. HEENT: Normocephalic, atraumatic. Oral mucosa is moist. CARDIOVASCULAR: Regular rhythm and rate with normal heart sounds one and two. RESPIRATORY: Fair air entry bilaterally with some transmitted breath sounds. No obvious rhonchi were appreciated. GI: Full, soft, nontender, nondistended with normal bowel sounds. EXTREMITIES: Grossly normal looking atraumatic with no obvious edema or erythema. 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 DIAGNOSTIC DATA: CBC showed WBC count of 11.5, hemoglobin of 8.0, platelet of 729. Renal function panel showed sodium 137, potassium 4.6, chloride 108, CO2 of 21, BUN 24, creatinine 1.47, glucose 163, calcium 7.7, phosphorus 3.3, albumin 2.9. ASSESSMENT: 1. Acute kidney injury: Due to hemodynamic factors related to volume depletion from GI bleed superimposed on effect of Cozaar. Creatinine is down to 1.47 from peak of 2.02 with discontinuation of Cozaar and treatment with IV fluids and blood transfusion. 2. Chronic kidney disease stage 3/4. 3. Hypertension: Control is suboptimal. 4. Acute on chronic anemia. Iron deficiency is a concern given thrombocytosis. 5. Recurrent gastrointestinal bleed status post esophagogastroduodenoscopy. Colonoscopy is contemplated. PLAN: We will increase isosorbide mononitrate to 60 mg p.o. daily to get adequate BP control. We will hold Cozaar at this point given recurrent GI bleed and acute increase in creatinine as well as potassium with recommencement of Cozaar. Outpatient followup in one week is recommended with repeat renal function panel as well as CBC. The patient can be discharged from Nephrology point of view. Job ID: [id number]
--- NOTE | 2019-12-11 15:03 | DIS ---
DATE OF ADMISSION: 12/08/2019 DATE OF DISCHARGE: 12/10/2019 HOSPITAL COURSE: Mr. Venegas is a 74-year-old with history of hiatal hernia and gastric polyp and ulceration as well as gastric and duodenal AVMs, who presented after being referred from his Oncology Clinic due to a low blood count. The patient came for his appointment and during routine workup was found to have a low hemoglobin, so was referred to the ED for further workup and treatment. Per the patient, he did not have any symptoms suggestive of acute anemia. The patient was supplemented with 1 packed red blood cells and responded appropriately. FOBT was negative. EGD was done on second day of admission and showed 2 nonbleeding AVMs in the duodenum that were cauterized. He tolerated the procedure well and was discharged home hemodynamically stable and with stable hemoglobin. PHYSICAL EXAMINATION: VITAL SIGNS: Unremarkable. GENERAL: He was in no apparent distress. CARDIAC: Regular rate and rhythm. No murmurs and no gallops. RESPIRATORY: Clear to auscultation bilaterally. No wheezing, rales, or rhonchi. GI: Soft, nontender, nondistended. NEUROLOGIC: Unremarkable. No focal weakness. PSYCHIATRIC: Alert and oriented x3. IMPRESSION AND PLAN: This is a 74-year-old male, who presented with: 1. Chronic anemia. a. The patient was administered 1 packed RBCs and responded well. b. FOBT was negative and hemoglobin remained stable throughout inpatient stay. c. The patient underwent an EGD on the day of discharge that showed 2 nonbleeding duodenal AVMs that were cauterized. d. The patient tolerated the procedure well and was discharged hemodynamically stable with followup appointment to his PCP. 2. Coronary artery disease. The patient was on aspirin and Plavix due to coronary artery disease stents as well as peripheral vascular disease with stents. The patient's aspirin and Plavix were held prior to the esophagogastroduodenoscopy. a. We will restart aspirin and Plavix as outpatient. b. The patient's hemoglobin should be followed by primary care physician. 3. Chronic obstructive pulmonary disease. The patient endorses using DuoNeb for shortness of breath infrequently, but recently due to upper respiratory infection was using it more frequently, but still less than once a day. a. We will continue same medical management. b. Primary care physician should assess the patient's DuoNeb use after upper respiratory infection resolves. 4. Hypertension. The patient's blood pressure was well controlled during inpatient stay using Coreg and Imdur. a. Losartan was held initially due to acute kidney injury that resolved on the second day of hospitalization. Prior to discharge, losartan was restarted after resolution of acute kidney injury. Job ID: [id number]
--- NOTE | 2019-12-13 18:15 | PQF ---
FUNMILAYO WALSH Harleen ERWIN GONZALEZ [id number] [id number] CLINICAL DOCUMENTATION CLARIFICATION FORM: POST DISCHARGE Addendum to original discharge summary date: ____ Late entry note date: __ DATE: 12/13/18 ATTN: Erwin Gonzalez Please exercise your independent, professional judgment in responding to the clarification form. Clinical indicators are provided on the bottom of this form for your review Can you please further clarify the diagnosis being treated and evaluated? Please check appropriate box(s): [x] GI bleeding (please specify etiology) _duodenal arteriovenous malformation__ [ ] History of GI bleeding only [ ] No GI bleeding [ ] Other diagnosis please specify [ ] Unable to determine In addition, please specify: Present on Admission (POA): [x] Yes [ ] No [ ] Unable to determine For continuity of documentation, please document condition throughout progress notes and discharge summary. Thank You. CLINICAL INDICATORS - SIGNS / SYMPTOMS / LABS H and P pg.1- low blood count H and P pg.1-MHx gastric ulceration with recent UGI bleed H and P pg.1- stable and exhibited no signs or symptoms of acute severe GI bleed OP report pg.1- history of recurrent anemia at times with GI bleed from arteriovenous malformation in the upper GI tract OP report pg.1- 2nd and 3rd portions, non bleeding cauterized with 7 northern irish heater probe cautery PN pg1 12/09- Acute on chronic gastrointestinal bleeding DS pg.1- FOBT was negative and hemoglobin was remained stable RISK FACTORS Chronic anemia-H and P pg.4 AVM malformation in the duodenum- OP report pg.1 hernia- DS pg.1 Gastric polyp- DS pg.1 TREATMENTS: 1x PRBC- H and P pg.1 IV Pantoprazole- H and P pg.1 Cauterization- OP report pg.1 IV fluids- MAR GI consult- Dr. Cai 12/08 H/H monitoring- Laboratory EGD- OP report (This form is maintained as a part of the permanent medical record) 2014 [employer]. All Rights Reserved [email or web address] [not provided] MTDD
--- NOTE | 2019-12-16 10:55 | EKG ---
Test Reason : Blood Pressure : / mmHG Vent. Rate : 070 BPM Atrial Rate : 070 BPM P-R Int : 178 ms QRS Dur : 110 ms QT Int : 414 ms P-R-T Axes : 066 -36 091 degrees QTc Int : 447 ms Normal sinus rhythm Left axis deviation Minimal voltage criteria for LVH, may be normal variant Anteroseptal infarct , age undetermined Abnormal ECG Confirmed by KIM SHIPLEY, RONNIE Clemente ([id number]), acquisition editor NENITA HIDALGO ([id number]) on 12/16/2019 10:55:29 AM Referred By: Confirmed By:RONNIE ALVAREZ MD
== END 2019-12-10 15:20 | disposition home or self-care (01) | DRG 811 ==
LOC: ERS 11:31 → ONC 15:06
PROVIDERS: ADMIT Internal Medicine; ATTEND Internal Medicine
PROC: 30233N1 Transfusion of Nonautologous Red Blood Cells into Peripheral Vein, Percutaneous Approach (ICD-10-PCS; 2019-12-08)
PROC: 0W3P8ZZ Control Bleeding in Gastrointestinal Tract, Via Natural or Artificial Opening Endoscopic (ICD-10-PCS; principal; 2019-12-09)
PROC: 0DB78ZZ Excision of Stomach, Pylorus, Via Natural or Artificial Opening Endoscopic (ICD-10-PCS; 2019-12-09)
DX: D62 Acute posthemorrhagic anemia (principal); K31.811 Angiodysplasia of stomach and duodenum with bleeding; N17.9 Acute kidney failure, unspecified; N18.4 Chronic kidney disease, stage 4 (severe); I25.10 Atherosclerotic heart disease of native coronary artery without angina pectoris; K27.9 Peptic ulcer, site unspecified, unspecified as acute or chronic, without hemorrhage or perforation; J44.9 Chronic obstructive pulmonary disease, unspecified; E11.22 Type 2 diabetes mellitus with diabetic chronic kidney disease; I12.9 Hypertensive chronic kidney disease with stage 1 through stage 4 chronic kidney disease, or unspecified chronic kidney disease; K31.819 Angiodysplasia of stomach and duodenum without bleeding; K44.9 Diaphragmatic hernia without obstruction or gangrene; E11.51 Type 2 diabetes mellitus with diabetic peripheral angiopathy without gangrene; T50.1X5A Adverse effect of loop [high-ceiling] diuretics, initial encounter; T46.5X5A Adverse effect of other antihypertensive drugs, initial encounter; D47.3 Essential (hemorrhagic) thrombocythemia; E11.65 Type 2 diabetes mellitus with hyperglycemia; E11.649 Type 2 diabetes mellitus with hypoglycemia without coma; Z90.49 Acquired absence of other specified parts of digestive tract; Z95.5 Presence of coronary angioplasty implant and graft; Z79.51 Long term (current) use of inhaled steroids; Z79.4 Long term (current) use of insulin; Z87.891 Personal history of nicotine dependence; Z79.899 Other long term (current) drug therapy; E87.5 Hyperkalemia; D13.1 Benign neoplasm of stomach; K21.9 Gastro-esophageal reflux disease without esophagitis; I25.2 Old myocardial infarction; Z88.7 Allergy status to serum and vaccine
CPT/HCPCS: 36415; 36416; 36430; 71045; 80053; 80069; 81001; 82274; 82570; 83735; 84156; 84300; 84484; 84540; 85025; 85027; 85610; 85730; 86850; 86900; 86901; 88305; 88312; 93005; 94640; 96365; 96376; C9113; J1610; J1815; J2704; J3490; J7611; J7620; P9016

== ENCOUNTER 2019-12-29 11:35 | Day surgery (SDC) | payer MEDICARE, MEDICAID ==
[2019-12-29] MEDS ORDERED: EPOETIN ALFA-EPBX (ESRD) 40,000 UNIT/ML VIAL ONE (11:39)
[2019-12-29 11:45] VITALS: BP 174/74; TEMP 97.8
[2019-12-29] MEDS ORDERED: EPOETIN ALFA-EPBX (ESRD) 40,000 UNIT/ML VIAL SC SCH (12:00)
== END 2019-12-29 11:45 | disposition home or self-care (01) ==
LOC: ONC/OP 11:35
PROVIDERS: ATTEND Internal Medicine Hematology & Oncology
DX: N18.9 Chronic kidney disease, unspecified (principal); D63.1 Anemia in chronic kidney disease; D50.8 Other iron deficiency anemias; Z88.7 Allergy status to serum and vaccine
CPT/HCPCS: 96372; Q5105

== ENCOUNTER 2020-01-05 11:15 | Day surgery (SDC) | payer MEDICARE, MEDICAID ==
[2020-01-05] MEDS ORDERED: EPOETIN ALFA-EPBX (ESRD) 40,000 UNIT/ML VIAL ONE (11:19)
[2020-01-05] MEDS ORDERED: EPOETIN ALFA-EPBX (ESRD) 40,000 UNIT/ML VIAL SC SCH (11:30)
[2020-01-05 11:39] VITALS: BP 171/74; TEMP 97.6
== END 2020-01-05 11:40 | disposition home or self-care (01) ==
LOC: ONC/OP 11:15
PROVIDERS: ATTEND Internal Medicine Hematology & Oncology
DX: D50.8 Other iron deficiency anemias (principal); N18.9 Chronic kidney disease, unspecified; D63.1 Anemia in chronic kidney disease; Z88.7 Allergy status to serum and vaccine
CPT/HCPCS: 96372; Q5105

== ENCOUNTER 2020-06-07 11:46 | Day surgery (SDC) | payer MEDICARE, MEDICAID ==
[2020-06-07] MEDS ORDERED: EPOETIN ALFA-EPBX (ESRD) 40,000 UNIT/ML VIAL ONE (11:50)
[2020-06-07] MEDS ORDERED: EPOETIN ALFA-EPBX (ESRD) 40,000 UNIT/ML VIAL SC SCH (12:15)
== END 2020-06-07 11:57 | disposition home or self-care (01) ==
LOC: ONC/OP 11:46
PROVIDERS: ATTEND Internal Medicine Hematology & Oncology
DX: D50.8 Other iron deficiency anemias (principal); N18.9 Chronic kidney disease, unspecified; D63.1 Anemia in chronic kidney disease; Z88.7 Allergy status to serum and vaccine
CPT/HCPCS: 96372; Q5105

== ENCOUNTER 2020-11-28 11:56 | Day surgery (SDC) | payer MEDICARE, MEDICAID ==
[2020-11-28] MEDS ORDERED: EPOETIN ALFA-EPBX (ESRD) 40,000 UNIT/ML VIAL SC SCH (12:15)
== END 2020-11-28 15:33 | disposition home or self-care (01) ==
LOC: ONC/OP 11:56
PROVIDERS: ATTEND Internal Medicine Hematology & Oncology
DX: N18.9 Chronic kidney disease, unspecified (principal); D63.1 Anemia in chronic kidney disease; D50.8 Other iron deficiency anemias; Z88.7 Allergy status to serum and vaccine
CPT/HCPCS: 96372; Q5105

== ENCOUNTER 2021-01-23 11:57 | Day surgery (SDC) | payer MEDICARE, MEDICAID ==
[2021-01-23] MEDS ORDERED: EPOETIN ALFA-EPBX (ESRD) 40,000 UNIT/ML VIAL FS SCH (12:15)
[2021-01-23 12:35] VITALS: BP 171/73
== END 2021-01-23 12:37 | disposition home or self-care (01) ==
LOC: ONC/OP 11:57
PROVIDERS: ATTEND Internal Medicine Hematology & Oncology
DX: N18.9 Chronic kidney disease, unspecified (principal); D63.1 Anemia in chronic kidney disease; D50.8 Other iron deficiency anemias; Z88.7 Allergy status to serum and vaccine
CPT/HCPCS: 96372; Q5105

== ENCOUNTER 2021-03-20 11:29 | Day surgery (SDC) | payer MEDICARE, MEDICAID ==
[2021-03-20] MEDS ORDERED: EPOETIN ALFA-EPBX (ESRD) 40,000 UNIT/ML VIAL SC SCH (12:00)
[2021-03-20 12:59] VITALS: BP 184/88; TEMP 97.8
== END 2021-03-20 13:01 | disposition home or self-care (01) ==
LOC: ONC/OP 11:29
PROVIDERS: ATTEND Internal Medicine Hematology & Oncology
DX: N18.9 Chronic kidney disease, unspecified (principal); D63.1 Anemia in chronic kidney disease; D50.8 Other iron deficiency anemias; Z88.7 Allergy status to serum and vaccine
CPT/HCPCS: 96372; Q5105